=== PATIENT | female | born 1955 | race Caucasian/White ===

== ENCOUNTER 2023-01-16 13:45 | Outpatient (REF) | payer MEDICARE, OTHER, SELFPAY ==
[2023-01-19 12:09] LABS: Age Gdln ACOG Testing Note (.); Pap IG (Image Guided) Note (.)
== END 2023-01-16 13:46 | disposition home or self-care (01) ==
LOC: LAB 13:45
PROVIDERS: Visit Provider Obstetrics & Gynecology
DX: Z01.419 Encounter for gynecological examination (general) (routine) without abnormal findings (principal)
CPT/HCPCS: 88175

== ENCOUNTER 2023-01-27 12:53 | Outpatient (OUT) | payer MEDICARE, OTHER, SELFPAY ==
--- NOTE | 2023-01-27 | MM_ITS ---
Patient: MELODIE WALLACE Exam Date: 01/27/2023 : 1955 Gender:F Ordering : DR Gerson Trinidad . Admission #: [id number] Family : DR SWENSON KAYLEEN . Order #: [id number] CLICK HERE TO VIEW EXAM RADIOLOGY REPORT PROCEDURE: MM TOMOSYNTHESIS SCREENING BI COMPARISON: MG MAMM SCREEN 3D CARISSA CAD, 11/30/2020. MG MAMM SCREEN 3D CARISSA CAD, 01/17/2022. INDICATIONS: well adult Z00.00 Calculator Name NCI Breast Cancer Risk Assessment Tool 5 Year Breast Cancer Risk 1.50% Lifetime Breast Cancer Risk 4.80% Personal Breast Cancer No Personal Ovarian Cancer No Treatments HYSTERECTOMY Family Cancers Grandfather-paternal with colon cancer at age 56. LOCATION: [facility] BREAST COMPOSITION: Almost entirely fatty. FINDINGS: DIAGNOSTIC CATEGORY 1--NEGATIVE. NO CHANGE FROM COMPARISON ASSESSMENT. Scattered benign-appearing calcifications are present. Scattered benign-appearing lymph nodes are present. RIGHT BREAST: No significant suspicious finding. LEFT BREAST: No significant suspicious finding. RECOMMENDATIONS: ROUTINE MAMMOGRAM AND CLINICAL EVALUATION IN 12 MONTHS. PLEASE NOTE: A NORMAL MAMMOGRAM DOES NOT EXCLUDE THE POSSIBILITY OF BREAST CANCER. A CLINICALLY SUSPICIOUS PALPABLE LUMP SHOULD BE BIOPSIED. Dictated by: Wilder Kerr MD on 01/27/2023 at 13:51 Approved by: Wilder Kerr MD on 01/27/2023 at 13:55
== END 2023-01-27 12:54 | disposition home or self-care (01) ==
LOC: MAMMO 12:53
PROVIDERS: PCP Family Medicine; Visit Provider Family Medicine
DX: Z12.31 Encounter for screening mammogram for malignant neoplasm of breast (principal); Z00.00 Encounter for general adult medical examination without abnormal findings; Z90.710 Acquired absence of both cervix and uterus; Z80.0 Family history of malignant neoplasm of digestive organs
CPT/HCPCS: 77063; 77067

== ENCOUNTER 2023-07-04 09:57 | Outpatient (OUT) | payer MEDICARE, OTHER, SELFPAY ==
[2023-07-04 10:41] LABS: Alanine Aminotransferase 41 U/L (14-59); Albumin Globulin Ratio 1.3; Albumin Level 4.2 g/dL (3.4-5.0); Alkaline Phosphatase 45 U/L (46-116); Aspartate Amino Transferase 24 U/L (15-37); Bilirubin Direct 0.1 mg/dL (0.0-0.2); Bilirubin Total 0.6 mg/dL (0.2-1.0); Chol HDL Ratio 2.9; Cholesterol 193 mg/dL (<=200); Globulin 3.3 g/dL; HDL Cholesterol 67 mg/dL (40-60); Total Protein 7.5 g/dL (6.4-8.2); Triglycerides 125 mg/dL (<=150)
== END 2023-07-04 09:58 | disposition home or self-care (01) ==
LOC: LAB 09:57
PROVIDERS: PCP Family Medicine; Visit Provider Family Medicine
DX: E78.00 Pure hypercholesterolemia, unspecified (principal)
CPT/HCPCS: 36415; 80061; 80076

== ENCOUNTER 2023-11-15 10:06 | Outpatient (OUT) | payer MEDICARE, OTHER, SELFPAY ==
[2023-11-15 10:36] LABS: Basophils Absolute Auto 0.1 10^3/uL (0.0-0.1); Basophils Percent Auto 0.7 % (0.2-2.0); Eosinophils Absolute Auto 0.2 10^3/uL (0.0-0.7); Eosinophils Percent Auto 2.5 % (0.9-7.0); Hematocrit 40.6 % (36.0-48.0); Hemoglobin 13.1 g/dL (12.0-16.0); Immature Granulocytes Abs Auto 0.05 10^3/uL (0.00-0.03); Immature Granulocytes Pct Auto 0.6 % (0.0-0.5); Lymphocytes Absolute Auto 2.7 10^3/uL (1.2-3.8); Lymphocytes Percent Auto 31.7 % (20.5-60.0); Mean Corpuscular HGB Conc 32.3 g/dL (29.9-35.2); Mean Corpuscular Hemoglobin 29.2 pg (26.7-34.0); Mean Corpuscular Volume 90.4 fL (81.0-99.0); Mean Platelet Volume 10.5 fL (9.5-13.5); Monocytes Absolute Auto 0.5 10^3/uL (0.3-0.8); Monocytes Percent Auto 6.2 % (1.7-12.0); Neutrophils Percent Auto 58.3 % (43.0-75.0); Platelet Count 240 10^3/uL (150-450); Red Blood Count 4.49 10^6/uL (4.20-5.40); White Blood Count 8.5 10^3/uL (4.0-11.0)
[2023-11-15 11:15] LABS: Estimated Average Glucose 137 mg/dL; Glycohemoglobin A1C 6.4 % (4.5-6.2)
[2023-11-15 11:56] LABS: Alanine Aminotransferase 36 U/L (14-59); Albumin Globulin Ratio 1.2; Albumin Level 4.1 g/dL (3.4-5.0); Alkaline Phosphatase 51 U/L (46-116); Anion Gap 15.9; Aspartate Amino Transferase 23 U/L (15-37); BUN Creatinine Ratio 28.6; Bilirubin Total 0.6 mg/dL (0.2-1.0); Carbon Dioxide 26.1 mmol/L (21.0-32.0); Chloride 103 mmol/L (98-107); Chol HDL Ratio 3.8; Cholesterol 226 mg/dL (<=200); Estimated GFR (African America >60 (>=60); Estimated GFR (Non-African Ame >60 (>=60); Free T3 2.03 pg/mL (2.18-3.98); Globulin 3.5 g/dL; Glucose 129 mg/dL (74-106); HDL Cholesterol 60 mg/dL (40-60); Sodium 140 mmol/L (136-145); Thyroid Stimulating Hormone 1.916 uIU/mL (0.358-3.740); Total Protein 7.6 g/dL (6.4-8.2); Triglycerides 245 mg/dL (<=150)
== END 2023-11-15 10:07 | disposition home or self-care (01) ==
LOC: LAB 10:10
PROVIDERS: PCP Family Medicine; Visit Provider Family Medicine
DX: E78.5 Hyperlipidemia, unspecified (principal); R73.09 Other abnormal glucose; D64.9 Anemia, unspecified; E55.9 Vitamin D deficiency, unspecified; I10 Essential (primary) hypertension
CPT/HCPCS: 36415; 80053; 80061; 82306; 83036; 83540; 84436; 84443; 84481; 85025

== ENCOUNTER 2024-01-29 20:08 | Outpatient (REF) | payer MEDICARE, OTHER, SELFPAY ==
--- OUTSIDE RECORDS SUMMARY | 2024-01-29 20:12 | XMS_ITS | CCD ---
Author Organization [facility] Care Team Providers Care Hydrography Teacher Name Role Phone Kory JARRETT Attending Unavailable Gerardoy PROVIDERZhao Referring Unavailabl e HOY ., DR CHURCHILL Primary Care Unavailable HOY ., DR CHURCHILL Admitting Unavailable HOY ., DR CHURCHILL Attending Unavailable HOY ., DR CHURCHILL Primary Care Unavailable HOY ., DR CHURCHILL Admitting Unavailable HOY ., DR CHURCHILL Attending Unavailable HOY ., DR CHURCHILL Consulting Unavailable ZIEBER, DR CARLOS Clinton Consulting Unavailable KAYLEEN ., DR SWENSON Admitting Unavailable HOY ., DR CHURCHILL Primary Care Unavailable KAYLEEN ., DR SWENSON Consulting Unavailable KAYLEEN ., DR SWENSON Attending Unavailable KAYLEEN ., DR SWENSON Attending Unavailable HOY ., DR CHURCHILL Primary Care Unavailable KAYLEEN ., DR SWENSON Consulting Unavailable KAYLEEN ., DR SWENSON Admitting Unavailable ZIEBER, DR CARLOS Clinton Consulting Unavailable KAYLEEN ., DR SWENSON Attending Unavailable KAYLEEN ., DR SWENSON Consulting Unavailable KAYLEEN ., DR SWENSON Admitting Unavailable HOY ., DR CHURCHILL Primary Care Unavailable HOY ., DR CHURCHILL Primary Care Unavailable HOY ., DR CHURCHILL Admitting Unavailable HOY ., DR CHURCHILL Attending Unavailable HOY ., DR CHURCHILL Consulting Unavailable HOY ., DR CHURCHILL Primary Care Unavailable HOY ., DR CHURCHILL Admranjan Unavailable HOY ., DR CHURCHILL Attending Unavailable HOY ., DR CHURCHILL Consulting Unavailable ZIEBER, DR CARLOS Clinton Consulting Unavailable Zhao Trinidad MD Primary Care Provider [phone] Zhao Trinidad MD Primary Care Provider [phone] ZHAO TRINIDAD Primary Care Unavailable NICKI V, IDANIA Attending Unavailable NICKI V, IDANIA Referring Unavailable NICKI V, IDANIA Admitting Unavailable NICKI V, IDANIA Attending Unavailable SELF Referring Unavailable ZHAO TRINIDAD Primary Care Unavailable ZHAO TRINIDAD Primary Care Unavailable NICKI V, IDANIA Referring Unavailable ZHAO TRINIDAD Primary Care Unavailable NICKI V, IDANIA Referring Unavailable ZHAO TRINIDAD M Primary Care Unavailable NICKI V, IDANIA Referring Unavailable ZHAO TRINIDAD Primary Care Unavailable NICKI V, IDANIA Attending Unavailable NICKI V, IDANIA Referring Unavailable NICKI V, IDANIA Admitting Unavailable Allergies Allergy Classification Reported Allergen(s) Allergy Type Date of Onset Reaction(s) Facility (1 source) No Known Medication Allergies; Translations: [No Known Medication Allergies] Propensity to adverse reactions (disorder) [facility] Repository Medications Current Medications Medication Drug Class(es) Dates Sig (Normalized) Sig (Original) alendronic acid 70 mg oral tablet (3 sources) Bisphosphonate Start: 08-18-2023 take 1 tablet by mouth every week alendronate (FOSAMAX) 70 mg tablet Take 1 tablet by mouth one time a week. 0 08/18/2023 Active Comment on above: Take 1 tablet by luke th one time a week. 24 hr desvenlafaxine succinate 25 mg extended release oral tablet (3 sources) Serotonin and Norepinephrine Reuptake Inhibitor Start: 08-24-2023 take 1 tablet by mouth once desvenlafaxine ER (PRISTIQ) 25 mg 24 hr tablet Take 1 tablet by mouth every afternoon. 0 08/24/2023 Active Comment on above: Take 1 tablet by luke th every afternoon. diclofenac sodium 75 mg delayed release oral tablet (3 sources) Nonsteroidal Anti-inflammatory Drug Start: 09-19-2023 take 1 tablet by mouth every twelve hours diclofenac, EC, (VOLTAREN) 75 mg EC tablet Take 1 tablet by mouth every 12 hours. 0 09/19/2023 Active Comment on above: Take 1 tablet by luke th every 12 hours. estradiol 0.1 mg/ml vaginal cream (3 sources) Estrogen estradiol (ESTRA CE) 0.01 % (0.1 mg/gram) vaginal cream Use 2 g vaginally. 0 Active Comment on above: Use 2 g vaginally. ezetimibe 10 mg oral tablet (3 sources) Dietary Cholesterol Absorption Inhibitor Start: 08-24-2023 take 1 tablet by mouth once ezetimibe (ZETIA) 10 mg tablet Take 1 tablet by mouth every afternoon. 0 08/24/2023 Active Comment on above: Take 1 tablet by luke th every afternoon. irbesartan 150 mg oral tablet (3 sources) Angiotensin 2 Receptor Dillan Start: 2023 irbesartan (AVAPRO) 150 mg tablet montelukast 10 mg oral tablet (3 sources) Leukotriene Receptor Antagonist Start: 07-13-2023 take 1 tablet by mouth once montelukast (SINGULAIR) 10 mg tablet Take 1 tablet by mouth every afternoon. 0 07/13/2023 Active Comment on above: Take 1 tablet by luke th every afternoon. pantoprazole 40 mg delayed release oral tablet (3 sources) Proton Pump Inhibitor Start: 07-12-2023 take 1 tablet by mouth once pantoprazole DR (PROTONIX) 40 mg tablet Take 1 tablet by mouth every afternoon. 0 07/12/2023 Active Comment on above: Take 1 tablet by luke th every afternoon. simvastatin 20 mg oral tablet (3 sources) HMG-CoA Reductase Inhibitor Start: 08-24-2023 take 1 tablet by mouth once simvastatin (ZOCOR) 20 mg tablet Take 1 tablet by mouth every afternoon. 0 08/24/2023 Active Comment on above: Take 1 tablet by luke th every afternoon. vitamin b12 0.1 mg oral tablet (3 sources) Vitamin B12 cyanocobalamin (VITAMIN B-12) 100 mcg tab Vitamin B12 0 Active Comment on above: Vitamin B12 Problems Active Problems Problem Classification Problem Date Documented Da te Episodic/Chronic Cataract (3 sources) Bilateral senile combined form cataracts of eyes; Translations: [Combined forms of age-related cataract, bilateral] Onset: 12-20-2023 09-07-2023 Chronic Deficiency and other anemia (1 source) Anemia, unspecified; Translations: [ANEMIA UNSPECIFIED] Onset: 10-22-2022 Episodic Diabetes mellitus without complication (1 source) Other abnormal glucose; Translations: [OTHER ABNORMAL GLUCOSE] Onset: 10-22-2022 Episodic Disorders of lipid metabolism (4 sources) Hyperlipidemia, unspecified; Translations: [Hyperlipidemia] Onset: 10-22-2022 12-07-2023 Chronic Esophageal disorders (4 sources) Gastro-esophageal reflux disease without esophagitis; Translations: [Gastroesophageal reflux disease without esophagitis] Onset: 10-22-2022 12-07-2023 Chronic Essential hypertension (3 sources) Essential hypertension; Translations: [Essential (primary) hypertension] Onset: 12-07-2023 12-07-2023 Chronic Nutritional deficiencies (1 source) Vitamin D deficiency, unspecified; Translations: [VITAMIN D DEFICIENCY UNSPECIFIED] Onset: 10-22-2022 Chronic Other and ill-defined heart disease (1 source) Other ill-defined heart diseases; Translations: [OTHER ILL-DEFINED HEART DISEASES] Onset: 07-27-2022 Chronic Other lower respiratory disease (4 sources) Dyspnea, unspecified; Translations: [DYSPNEA UNSPECIFIED] Onset: 10-18-2022 Episodic Other screening for suspected conditions (not mental disorders or infectious disease) (13 sources) Encounter for screening for malignant neoplasm of rectum; Translations: [Unsatisfactory cytologic smear of vagina] Onset: 01-03-2022 Episodic Residual codes; unclassified (1 source) Insomnia, unspecified; Translations: [INSOMNIA UNSPECIFIED] Onset: 10-22-2022 Episodic Retinal detachments; defects; vascular occlusion; and retinopathy (1 source) Drusen of left macula; Translations: [Drusen (degenerative) of macula, left eye] 09-28-2023 Chronic Unclassified (3 sources) COUGH, UNSPECIFIED; Translations: [COUGH, UNSPECIFIED] Onset: 02-16-2022 Past or Other Problems Problem Classification Problem Date Documented Da te Episodic/Chronic Immunizations and screening for infectious disease (1 source) Encounter for screening for human papillomavirus (HPV); Translations: [ENC SCREENING HUMAN PAPILLOMAVIRUS] Onset: 01-06-2022 Episodic Nonspecific chest pain (4 sources) Chest pain, unspecified; Translations: [CHEST PAIN UNSPECIFIED] Onset: 07-20-2022 Episodic Other bone disease and musculoskeletal deformities (1 source) Other specified disorders of bone density and structure, unspecified site; Translations: [OTH D/O BONE DEN STRUCT UNS SITE] Onset: 01-19-2022 Episodic Residual codes; unclassified (1 source) Asymptomatic menopausal state; Translations: [ASYMPTOMATIC MENOPAUSAL STATE] Onset: 01-19-2022 Episodic Residual codes; unclassified (1 source) Family history of malignant neoplasm of digestive organs; Translations: [FAM HX MALIG NEOPLASM DIGESTIV ORGN] Onset: 01-19-2022 Episodic Unclassified (1 source) COUGH, UNSPECIFIED; Translations: [COUGH, UNSPECIFIED] Onset: 02-14-2022 Results Test Name Value Interpretation Reference Range Facility ANES POSTPROC EVALon 024 ANES POSTPROC EVAL HNO ID: [id number] Author: LARRY BANERJEE MD Service: Anesthesiology Author Type: Anesthesiologist Type: Anesthesia Postprocedure Evaluation Filed: 01/03/2024 12:50 Note Text: POST ANESTHESIA EVALUATION NOTE : 1955 Procedure Summary Date: 01/03/24 Room / Location: [address] Anesthesia Start: 1216 Anesthesia Stop: 1238 Procedures: PHACOEMULSIFICATION CATARACT IMPLANT INTRAOCULAR LENS W/O ENDOSCOPIC CYCLOPHOTOCOAGULATION (Right: Eye) OPHTHALMIC BIOMETRY BY PARTIAL COHERENCE INTERFEROMETRY W/INTRAOCULAR LENS POWER CALCULATION (Right: Eye) Diagnosis: Combined forms of age-related cataract of both eyes (Combined forms of age-related cataract of both eyes [H25.813]) Surgeons: Idania Moreno V, MD Responsible Provider: Larry Banerjee MD Anesthesia Type: MAC ASA Status: 3 Anesthesia Type: MAC Last Vitals Vitals Value Taken Time BP 135/61 01/03/24 1242 Temp 36.7 ?C (98.1 ?F) 01/03/24 1237 Pulse 74 01/03/24 1237 Resp 16 01/03/24 1242 SpO2 96 % 01/03/24 1242 Post Anesthesia Patient Status Patient Evaluation: PACU. PACU/ICU Patient Condition: stable. Anticipated Disposition: phase 2 then home. Neurological Status: aware and responsive. Pulmonary Status: breathing comfortably on room air Airway Control: returned to baseline unsupported. Cardiovascular Status: stable. Pain Management: clinically adequate Postoperative Hydration: acceptable. Intraoperative Events: no significant anesthesia events Recommendation: continue current plan of care. Anesthesia Observations No Documentation SIGNATURE: Larry Banerjee MD PATIENT NAME: Anamaria Carey DATE: January 03, 2024 TIME: 12:50 PM CSN: [id number] Normal [facility] ANES PRE-OPon 01-03-2024 ANES PRE-OP HNO ID: [id number] Author: LARRY BANERJEE MD Service: Anesthesiology Author Type: Anesthesiologist Type: Anesthesia Preprocedure Evaluation Filed: 01/03/2024 12:14 Note Text: ANESTHESIOLOGY DAY OF SURGERY NOTE : 1955 Procedure Information Date/Time: 01/03/24 1145 Procedures: PHACOEMULSIFICATION CATARACT IMPLANT INTRAOCULAR LENS W/O ENDOSCOPIC CYCLOPHOTOCOAGULATION (Right: Eye) OPHTHALMIC BIOMETRY BY PARTIAL COHERENCE INTERFEROMETRY W/INTRAOCULAR LENS POWER CALCULATION (Right: Eye) Location: [address] Surgeons: Idania Moreno V, MD Estimated body mass index is 26.76 kg/m? as calculated from the following: Height as of 12/07/23: 170.2 cm (5' 7 ). Weight as of 12/07/23: 77.5 kg (170 lb 13.7 oz). Most recent hematocrit and potassium results: No results found for this basename: HCT,HEMATOCRIT,K,POTASS IUM Relevant Problems CARDIO (+) Primary hypertension GI (+) Gastro-esophageal reflux disease without esophagitis I - PHYSICAL EVALUATION AIRWAY Patient intubated: No. Tracheostomy tube not present Mallampati: II. TM distance: >3 FB. Neck ROM: full ROM without neurological symptoms. Mouth opening: adequate. Short neck: no. Thick neck: no DENTAL Normal dental observations. Dental findings: teeth intact. Additional exam findings: yes. CARDIOVASCULAR Normal cardiovascular observations. Rhythm: regular Rate: normal PULMONARY Normal pulmonary observations. Breath sounds clear to auscultation. II - ANESTHESIA PLAN ASA Score: 3 Anesthetic Plan: MAC The patient is not a current smoker. NPO Status: adequate Beta Dillan Monitoring Plan Monitoring plan: standard ASA. Post Procedure Analgesic Plan Postoperative analgesic plan: multimodal analgesia. Informed Consent Anesthetic risks, benefits, alternatives, personnel and consent discussed: yes. Patient / Responsible Democrat agrees to proceed: yes Patient / Surrogate agrees to blood products: yes Significant changes in the patient condition since the History and Physical, not otherwise documented in primary service progress note: no. Potential Anesthesia issues that may suggest increased risk of complications or contraindication to planned procedure: none. Vitals Value Taken Time BP 137/66 01/03/24 1156 Pulse 71 01/03/24 1156 Resp 18 01/03/24 1156 Temp 36.3 ?C (97.3 ?F) 01/03/24 1156 SpO2 98 % 01/03/24 1156 Facility-Administered Medications as of 01/03/2024 Medication Dose Route Frequency NaCl 0.9% iv infusion 30 mL/hr INTRAVENOUS CONTINUOUS [COMPLETED] lidocaine HCl (PF) 40 mg/mL 2 mg injection (XYLOCAINE) 0.05 mL RIGHT EYE EVERY 5 MINUTES X 3 DOSES [COMPLETED] PHENYLephrine 2.5 % 1 Drop (AK-DILATE, PAT-SYNEPHRINE) 1 Drop RIGHT EYE EVERY 5 MINUTES X 3 DOSES [COMPLETED] tropicamide 1 % 1 Drop (MYDRIACYL) 1 Drop RIGHT EYE EVERY 5 MINUTES X 3 DOSES cyclopentolate 1 % 1 Drop (CYCLOGYL) 1 Drop RIGHT EYE Pre-Op PRN [COMPLETED] keTORolac 0.5 % 1 Drop (ACULAR) 1 Drop RIGHT EYE q 5 MIN [COMPLETED] Povidone-Iodine 5 % 30 mL ophth soln (BETADINE) 30 mL RIGHT EYE ONCE [COMPLETED] balanced salts 15 mL (BSS) 15 mL RIGHT EYE ONCE [COMPLETED] lidocaine HCl (PF) 40 mg/mL 2 mg injection (XYLOCAINE) 0.05 mL LEFT EYE EVERY 5 MINUTES X 3 DOSES [COMPLETED] PHENYLephrine 2.5 % 1 Drop (AK-DILATE, PAT-SYNEPHRINE) 1 Drop LEFT EYE EVERY 5 MINUTES X 3 DOSES [COMPLETED] tropicamide 1 % 1 Drop (MYDRIACYL) 1 Drop LEFT EYE EVERY 5 MINUTES X 3 DOSES [COMPLETED] keTORolac 0.5 % 1 Drop (ACULAR) 1 Drop LEFT EYE q 5 MIN [COMPLETED] Povidone-Iodine 5 % 30 mL ophth soln (BETADINE) 30 mL LEFT EYE ONCE [COMPLETED] balanced salts 15 mL (BSS) 15 mL LEFT EYE ONCE Outpatient Medications as of 01/03/2024 Medication Sig prednisoLONE acetate (PRED FORTE) 1 % ophthalmic suspension USE DIRECTED BY PHYSICIAN, IN OPERATIVE EYE, BEGINNING ONE DAY AFTER SURGERY keTORolac (ACULAR) 0.5 % ophthalmic solution USE DIRECTED BY PHYSICIAN, IN OPERATIVE EYE, BEGINNING ONE DAY AFTER SURGERY prednisoLONE acetate (PRED FORTE) 1 % ophthalmic suspension USE DIRECTED BY PHYSICIAN, IN OPERATIVE EYE, BEGINNING ONE DAY AFTER SURGERY keTORolac (ACULAR) 0.5 % ophthalmic solution USE DIRECTED BY PHYSICIAN, IN OPERATIVE EYE, BEGINNING ONE DAY AFTER SURGERY alendronate (FOSAMAX) 70 mg tablet Take 1 tablet by mouth one time a week. SMRxT ULTRA TEST test strip USE TO TEST BLOOD SUGAR DAILY DX: E11.9 desvenlafaxine ER (PRISTIQ) 25 mg 24 hr tablet Take 1 tablet by mouth every afternoon. diclofenac, EC, (VOLTAREN) 75 mg EC tablet Take 1 tablet by mouth every 12 hours. ezetimibe (ZETIA) 10 mg tablet Take 1 tablet by mouth every afternoon. irbesartan (AVAPRO) 150 mg tablet montelukast (SINGULAIR) 10 mg tablet Take 1 tablet by mouth every afternoon. pantoprazole DR (PROTONIX) 40 mg tablet Take 1 tablet by mouth every afternoon. simvastatin (ZOCOR) 20 mg tablet Take 1 tablet by mouth every afternoon. I h (more content not included)... Normal [facility] OPERATIVE NOon 01-03-2024 OPERATIVE NO HNO ID: [id number] Author: IDANIA MORENO MD Service: Ophthalmology Author Type: Physician Type: Operative Report Filed: 01/03/2024 12:34 Note Text: OPERATIVE REPORT DATE OF SERVICE: January 03, 2024 PRIMARY SURGEON: Idania Moreno M.D. MAMMAL KEEPER: None [Any nurse listed as assisting or otherwise participating in this patient's care in the operating room has solely performed the duties of a circulating nurse.] Procedure(s) (LRB): PHACOEMULSIFICATION CATARACT IMPLANT INTRAOCULAR LENS W/O ENDOSCOPIC CYCLOPHOTOCOAGULATION (Right) OPHTHALMIC BIOMETRY BY PARTIAL COHERENCE INTERFEROMETRY W/INTRAOCULAR LENS POWER CALCULATION (Right) ANESTHESIA: Topical with monitored anesthesia care. PREOPERATIVE DIAGNOSIS: Combined cataract POSTOPERATIVE DIAGNOSIS: Combined cataract, presbyopia OPERATIVE INDICATIONS: BAT 20/150 OPERATIVE PROCEDURE: The patient was admitted to the operating suite where an IV and BP, EKG, and O2 monitors were placed. The operative eye was pretreated with 2.5% tropicamide and 1% phenylephrine eye drops. The operative eye was confirmed and marked. The intended Intraocular lens model and power circled on the patient's source document was confirmed to match the intraocular lens model and power selected from the Intraocular lens consignment, in accordance with hospital intraocular lens verification policy. Nasal oxygen was administered. With the patient in the supine position, topical lidocaine 4% was placed in the eye. The patient was then prepped and draped in the usual sterile fashion for intraocular surgery. After a time-out confirming correct patient using two unique identifiers, correct eye, correct operation, presence of allergies, correct implant, and implant sterility date, an eyelid speculum was placed. Under the operating microscope a beveled clear corneal incision was created temporally with a [place] blade then a 2.4 mm keratome. The anterior chamber was reformed with Viscoat, after which the anterior capsule was opened centrally. Using the Utrata forceps a continuous curvilinear capsulorrhexis of approximately 5.5 mm round was created. Gentle hydrodissection was accomplished using preservative-free lidocaine on a 27-gauge cannula. Using the Jordan phacoemulsification unit with the Opsens curved tip, the anterior chamber was entered and the nucleus was removed while it was in the bag. The epinuclear ring was dissected into several segments, then removed using the phacoemulsification unit set to the desired aspiration flow rate and ultrasound parameters. It was necessary to use chopper forceps at various intervals to aid in the fragmentation of the dense lens material. Great care was taken not to violate the posterior capsule. The silicone-tipped I and A instrument was used to remove the cortex and buff off any remaining cataractous material from the posterior capsule. The capsular bag was then reformed with Discovisc and the following Intraocular lens implant Implant Name Type Inv. Item Serial No. Student Accounts Coordinator Lot No. LRB No. Used Action Model No. [id number] [employer] - [id number] Intraocular Lens [id number] [employer] [id number] [employer] Right 1 Implanted [id number] was inserted through the lips of the wound into the capsular bag. I have reviewed the images and report from the Ophthalmic Biometry January 03, 2024 to determine the Intraocular lens Power Calculation for the IOL lens implant. I have interpreted and agree with the calculation of the IOL as listed above. Using the I and A instrument, the Discovisc was removed from the anterior chamber and capsular bag, and the implant was centered. Cefuroxime 1mg in 0.1 mL normal saline was introduced into the anterior chamber through the clear corneal incision using a 30 gauge cannula. The wound was checked and found to be watertight. At the end of the procedure, the cornea was clear, the anterior chamber was deep and clear, the pupil was round, the implant was centered within the capsular bag, and the posterior capsule was intact. The eyelid speculum was removed and prednisolone acetate 1% and timolol 0.5% eye drops were administered. A shield was affixed over the eye and the patient was sent to the recovery room, leaving the operating room in excellent condition. ESTIMATED BLOOD LOSS: <1mL SPECIMEN: None FINDINGS: Age-related cataract COMPLICATIONS: None Incision/Procedure Start Time: 12:27 PM Incision Close/Procedure End Time: 12:33 PM - [facility] Dr Cody[facility] Idania MORENO MD [facility] ANES POSTPROC EVALon 024 ANES POSTPROC EVAL HNO ID: [id number] Author: SADIQ MEGLAR II, DO Service: Anesthesiology Author Type: Anesthesiologist Type: Anesthesia Postprocedure Evaluation Filed: 12/20/2023 13:11 Note Text: POST ANESTHESIA EVALUATION NOTE : 1955 Procedure Summary Date: 12/20/23 Room / Location: [address] Anesthesia Start: 1116 Anesthesia Stop: 1135 Procedures: PHACOEMULSIFICATION CATARACT IMPLANT INTRAOCULAR LENS W/O ENDOSCOPIC CYCLOPHOTOCOAGULATION (Left: Eye) OPHTHALMIC BIOMETRY BY PARTIAL COHERENCE INTERFEROMETRY W/INTRAOCULAR LENS POWER CALCULATION (Left: Eye) Diagnosis: Combined forms of age-related cataract of both eyes (Combined forms of age-related cataract of both eyes [H25.813]) Surgeons: Idania Moreno V, MD Responsible Provider: Sadiq Melgar II, DO Anesthesia Type: MAC ASA Status: 2 Anesthesia Type: MAC Last Vitals Vitals Value Taken Time BP 126/58 12/20/23 1148 Temp 36.3 ?C (97.4 ?F) 12/20/23 1137 HR SpO2 71 12/20/23 1148 Resp 16 12/20/23 1148 SpO2 98 % 12/20/23 1148 Post Anesthesia Patient Status Patient Evaluation: PACU. PACU/ICU Patient Condition: stable. Neurological Status: aware and responsive. Pulmonary Status: breathing comfortably on room air Airway Control: returned to baseline unsupported. Cardiovascular Status: stable. Pain Management: clinically adequate Postoperative Hydration: acceptable. Intraoperative Events: no significant anesthesia events Post Operative Nausea/Vomiting Status: no significant post operative nausea or vomiting Recommendation: continue current plan of care. Anesthesia Observations No Documentation SIGNATURE: Sadiq Melgar II, DO PATIENT NAME: Anamaria Carey DATE: December 20, 2023 TIME: 1:11 PM CSN: [id number] Normal [facility] ANES PRE-OPon 12-20-2023 ANES PRE-OP HNO ID: [id number] Author: SADIQ MELGAR II, DO Service: Anesthesiology Author Type: Anesthesiologist Type: Anesthesia Preprocedure Evaluation Filed: 12/20/2023 10:31 Note Text: ANESTHESIOLOGY DAY OF SURGERY NOTE : 1955 Procedure Information Date/Time: 12/20/23 1025 Procedures: PHACOEMULSIFICATION CATARACT IMPLANT INTRAOCULAR LENS W/O ENDOSCOPIC CYCLOPHOTOCOAGULATION (Left: Eye) OPHTHALMIC BIOMETRY BY PARTIAL COHERENCE INTERFEROMETRY W/INTRAOCULAR LENS POWER CALCULATION (Left: Eye) Location: [address] Surgeons: Idania Moreno V, MD Estimated body mass index is 26.76 kg/m? as calculated from the following: Height as of 12/07/23: 170.2 cm (5' 7 ). Weight as of 12/07/23: 77.5 kg (170 lb 13.7 oz). Most recent hematocrit and potassium results: No results found for this basename: HCT,HEMATOCRIT,K,POTASS IUM Relevant Problems CARDIO (+) Primary hypertension GI (+) Gastro-esophageal reflux disease without esophagitis I - PHYSICAL EVALUATION AIRWAY Patient intubated: No. Tracheostomy tube not present Mallampati: III. TM distance: >3 FB. Neck ROM: limited extension. Mouth opening: adequate. Short neck: no. Thick neck: no DENTAL Additional comments: crowns. Additional exam findings: yes. CARDIOVASCULAR Rhythm: regular Rate: normal PULMONARY Breath sounds clear to auscultation. II - ANESTHESIA PLAN ASA Score: 2 Anesthetic Plan: MAC The patient is not a current smoker. NPO Status: adequate Beta Dillan Monitoring Plan Monitoring plan: standard ASA. Post Procedure Analgesic Plan Postoperative analgesic plan: parenteral or oral opioids. Informed Consent Anesthetic risks, benefits, alternatives, personnel and consent discussed: yes. Patient / Responsible Democrat agrees to proceed: yes Patient / Surrogate agrees to blood products: Yes Vitals Value Taken Time BP 141/90 12/20/23 1019 Pulse 84 12/20/23 1019 Resp 16 12/20/23 1019 Temp 36.4 ?C (97.5 ?F) 12/20/23 1019 SpO2 97 % 12/20/23 1019 Facility-Administered Medications as of 12/20/2023 Medication Dose Route Frequency - NaCl 0.9% iv infusion 30 mL/hr INTRAVENOUS CONTINUOUS - [COMPLETED] lidocaine HCl (PF) 40 mg/mL 2 mg injection (XYLOCAINE) 0.05 mL LEFT EYE EVERY 5 MINUTES X 3 DOSES - [COMPLETED] PHENYLephrine 2.5 % 1 Drop (AK-DILATE, PAT-SYNEPHRINE) 1 Drop LEFT EYE EVERY 5 MINUTES X 3 DOSES - [COMPLETED] tropicamide 1 % 1 Drop (MYDRIACYL) 1 Drop LEFT EYE EVERY 5 MINUTES X 3 DOSES - cyclopentolate 1 % 1 Drop (CYCLOGYL) 1 Drop LEFT EYE Pre-Op PRN - [COMPLETED] keTORolac 0.5 % 1 Drop (ACULAR) 1 Drop LEFT EYE q 5 MIN - [COMPLETED] Povidone-Iodine 5 % 30 mL ophth soln (BETADINE) 30 mL LEFT EYE ONCE - [COMPLETED] balanced salts 15 mL (BSS) 15 mL LEFT EYE ONCE Outpatient Medications as of 12/20/2023 Medication Sig - [employer] Spine[employer]CH ULTRA TEST test strip USE TO TEST BLOOD SUGAR DAILY DX: E11.9 - desvenlafaxine ER (PRISTIQ) 25 mg 24 hr tablet Take 1 tablet by mouth every afternoon. - diclofenac, EC, (VOLTAREN) 75 mg EC tablet Take 1 tablet by mouth every 12 hours. - ezetimibe (ZETIA) 10 mg tablet Take 1 tablet by mouth every afternoon. - irbesartan (AVAPRO) 150 mg tablet - montelukast (SINGULAIR) 10 mg tablet Take 1 tablet by mouth every afternoon. - pantoprazole DR (PROTONIX) 40 mg tablet Take 1 tablet by mouth every afternoon. - simvastatin (ZOCOR) 20 mg tablet Take 1 tablet by mouth every afternoon. - prednisoLONE acetate (PRED FORTE) 1 % ophthalmic suspension USE DIRECTED BY PHYSICIAN, IN OPERATIVE EYE, BEGINNING ONE DAY AFTER SURGERY - keTORolac (ACULAR) 0.5 % ophthalmic solution USE DIRECTED BY PHYSICIAN, IN OPERATIVE EYE, BEGINNING ONE DAY AFTER SURGERY - alendronate (FOSAMAX) 70 mg tablet Take 1 tablet by mouth one time a week. I have interviewed and examined the patient. I have reviewed the medical record and/or the pre-anesthesia evaluation, pertinent labs, and test results. This contains updated information obtained within 48 hours of Surgery/Procedure. SIGNATURE: Sadiq Melgar II, DO PATIENT NAME: Anamaria Carey DATE: December 20, 2023 TIME: 10:28 AM CSN: [id number] [facility] NURSING PROGon 12-20-2023 NURSING PROG HNO ID: [id number] Author: ARIN VELASCO RN Service: ? Author Type: Registered Nurse Type: Nursing Progress Note Filed: 12/20/2023 11:43 Note Text: POST OP LEARNING RESPONSE INSTRUCTION PROVIDED TO: Patient and Spouse METHOD OF INSTRUCTION: Written instruction/Handouts Verbal instruction PATIENT / FAMILY RESPONSE: Verbalizes understanding of: INFECTION MANAGEMENT-Signs and symptoms of an infection and importance of contacting the physician PAIN MANAGEMENT-Effective strategies to manage pain in addition to pain medication PHYSICAL RESTRICTIONS-Physical restrictions and recommendations after discharge from the hospital POST-OPERATIVE INSTRUCTIONS-Correct actions to take to reduce postoperative complications WORSENING CONDITION-Signs and symptoms of a worsening condition that warrant a call to the physician FOLLOW-UP PLAN: Patient instructed to call with any further issues SUPPLEMENTAL MATERIAL: Discharge instructions REFERRAL (RECOMMENDATION): None Electronically Signed By: Arin Velasco RN In Department: AMBULATORY SURGERY [facility] OPERATIVE NOon 12-20-2023 OPERATIVE NO HNO ID: [id number] Author: IDANIA MORENO MD Service: Ophthalmology Author Type: Physician Type: Operative Report Filed: 12/20/2023 11:34 Note Text: OPERATIVE REPORT DATE OF SERVICE: December 20, 2023 PRIMARY SURGEON: Idania Moreno M.D. MAMMAL KEEPER: None [Any nurse listed as assisting or otherwise participating in this patient's care in the operating room has solely performed the duties of a circulating nurse.] Procedure(s) (LRB): PHACOEMULSIFICATION CATARACT IMPLANT INTRAOCULAR LENS W/O ENDOSCOPIC CYCLOPHOTOCOAGULATION (Left) OPHTHALMIC BIOMETRY BY PARTIAL COHERENCE INTERFEROMETRY W/INTRAOCULAR LENS POWER CALCULATION (Left) ANESTHESIA: Topical with monitored anesthesia care. PREOPERATIVE DIAGNOSIS: Combined cataract POSTOPERATIVE DIAGNOSIS: Combined cataract, presbyopia OPERATIVE INDICATIONS: BAT 20/150 OPERATIVE PROCEDURE: The patient was admitted to the operating suite where an IV and BP, EKG, and O2 monitors were placed. The operative eye was pretreated with 2.5% tropicamide and 1% phenylephrine eye drops. The operative eye was confirmed and marked. The intended Intraocular lens model and power circled on the patient's source document was confirmed to match the intraocular lens model and power selected from the Intraocular lens consignment, in accordance with [facility] intraocular lens verification policy. Nasal oxygen was administered. With the patient in the supine position, topical lidocaine 4% was placed in the eye. The patient was then prepped and draped in the usual sterile fashion for intraocular surgery. After a time-out confirming correct patient using two unique identifiers, correct eye, correct operation, presence of allergies, correct implant, and implant sterility date, an eyelid speculum was placed. Under the operating microscope a beveled clear corneal incision was created temporally with a [place] blade then a 2.4 mm keratome. The anterior chamber was reformed with Viscoat, after which the anterior capsule was opened centrally. Using the Utrata forceps a continuous curvilinear capsulorrhexis of approximately 5.5 mm round was created. Gentle hydrodissection was accomplished using preservative-free lidocaine on a 27-gauge cannula. Using the Jordan phacoemulsification unit with the Kelman curved tip, the anterior chamber was entered and the nucleus was removed while it was in the bag. The epinuclear ring was dissected into several segments, then removed using the phacoemulsification unit set to the desired aspiration flow rate and ultrasound parameters. It was necessary to use chopper forceps at various intervals to aid in the fragmentation of the dense lens material. Great care was taken not to violate the posterior capsule. The silicone-tipped I and A instrument was used to remove the cortex and buff off any remaining cataractous material from the posterior capsule. The capsular bag was then reformed with Discovisc and the following Intraocular lens implant Implant Name Type Inv. Item Serial No. Student Accounts Coordinator Lot No. LRB No. Used Action Model No. [id number] [employer] - [id number] Intraocular Lens [id number] [employer] [id number] [employer] Left 1 Implanted [id number] was inserted through the lips of the wound into the capsular bag. I have reviewed the images and report from the Ophthalmic Biometry December 20, 2023 to determine the Intraocular lens Power Calculation for the IOL lens implant. I have interpreted and agree with the calculation of the IOL as listed above. Using the I and A instrument, the Discovisc was removed from the anterior chamber and capsular bag, and the implant was centered. Cefuroxime 1mg in 0.1 mL normal saline was introduced into the anterior chamber through the clear corneal incision using a 30 gauge cannula. The wound was checked and found to be watertight. At the end of the procedure, the cornea was clear, the anterior chamber was deep and clear, the pupil was round, the implant was centered within the capsular bag, and the posterior capsule was intact. The eyelid speculum was removed and prednisolone acetate 1% and timolol 0.5% eye drops were administered. A shield was affixed over the eye and the patient was sent to the recovery room, leaving the operating room in excellent condition. ESTIMATED BLOOD LOSS: <1mL SPECIMEN: None FINDINGS: Age-related cataract COMPLICATIONS: None Incision/Procedure Start Time: 11:25 AM Incision Close/Procedure End Time: 11:32 AM - Comanage with Dr Cody; [facility] POD #1 Idania MORENO MD [facility] HISTORY PHYSICALon HISTORY PHYSICAL HNO ID: [id number] Author: SAMREEN RICKS APRN.BOTANY TEACHER Service: ? Author Type: Nurse Practitioner Type: H&P Filed: 12/07/2023 11:21 Note Text: HISTORY AND PHYSICAL EXAMINATION SERVICE DATE: 12/07/2023 SERVICE TIME: 10:01 AM PRIMARY CARE PHYSICIAN: Zhao Trinidad MD REASON FOR VISIT: Anamaria Carey is a 68 year old female who is scheduled for bilateral Cataract Surgery at the request of Dr. Idania Moreno V for consultation. My final recommendation will be communicated back to the requesting physician by way of shared medical record or letter. METS: Walk indoors, such as around the house (1.75 METs) Do light work around the house, such as dusting or washing dishes (2.70 METs) Take care of self; that is eating, dressing, bathing, using the toilet (2.75 METs) Climb a flight of stairs or walk up a hill (5.50 METs) Patient denies any chest pain or undue shortness of breath with the above physical activity. ANESTHESIA FINDINGS: Intubation History: No history of difficult intubation Significant Anesthesia Considerations: None Airway Exam: General: Normal appearance Body mass index is 26.76 kg/m?. Mallampati Score is CLASS II ULBT: Class II - Lower incisors can bite the upper lip below the rylee line Neck: Normal appearance and function, Distance from hyoid to mentum during neck extension is at least 3 finger breaths Mouth: Normal tongue size and Mouth opening greater than 2 finger breaths Dentition: Intact and Caps/crowns Airway History: No abnormal airway history 12/06/2023 Sleep Apnea Probability Snores loudly: No Tired, fatigued or sleepy in daytime: No Stops breathing or choking/gasping during sleep: No High blood pressure: Yes Sleep Apnea Probability Score: 8 (Sleep study not recommended) Assessment/Plan Primary hypertension Assessment: Stable and compliant with medications Followed by PCP Last 5 Encounter BP Readings: Date: BP: 12/07/2023 132/68 Hyperlipidemia, unspecified Assessment: Controlled with statin. Monitored per PCP. Gastro-esophageal reflux disease without esophagitis Assessment: Well controlled with PPI PLAN This patient is optimally prepared for surgery. CONSULTS: Patient does not require consults for optimization at this time. The Following Tests/Procedures Have Been Initiated: Labs not indicated per [facility] protocol, EKG not indicated per [facility] protocol Planned Anesthetic: Per anesthesia choice The patient has the following: ACTIVE PROBLEM LIST Gastro-Esophageal Reflux Disease Without Esophagitis Hyperlipidemia, Unspecified Primary Hypertension Subjective CHIEF COMPLAINT: Impaired Vision HPI: Patient is a 68 year old female presenting to pre-anesthesia consultation. Patient complains of decreased visual acuity, blurred vision, and difficulty with night driving for > 6 months. Found to have bilateral cataracts. Patient denies pain. No relieving factors, patient has opted for surgical treatment of cataracts. History reviewed. No pertinent past medical history. PAST SURGICAL HISTORY Procedure Laterality Date COLONOSCOPY SCREENING VAGINAL HYSTERECTOMY FAMILY HISTORY Problem Relation Age of Onset Cataract Mother Macular Degen Brother Glaucoma Brother Detached Retina No Family History Blindness No Family History Amblyopia No Family History Strabismus No Family History Anesthesia Problems No Family History SOCIAL HISTORY: Social History Tobacco Use Smoking status: Former Packs/day: 1.00 Years: 15.00 Additional pack years: 0.00 Total pack years: 15.00 Types: Cigarettes Smokeless tobacco: Never Substance Use Topics Alcohol use: Yes Comment: wine daily Drug use: Never MEDICATIONS: Prior to Admission medications as of 12/07/23 1003 Medication Sig Last Dose Taking alendronate (FOSAMAX) 70 mg tablet Take 1 tablet by mouth one time a week. Taking Yes ONETOUCH ULTRA TEST test strip USE TO TEST BLOOD SUGAR DAILY DX: E11.9 Taking Yes cyanocobalamin (VITAMIN B-12) 100 mcg tab Vitamin B12 Taking Yes desvenlafaxine ER (PRISTIQ) 25 mg 24 hr tablet Take 1 tablet by mouth every afternoon. Taking Yes diclofenac, EC, (VOLTAREN) 75 mg EC tablet Take 1 tablet by mouth every 12 hours. Taking Yes estradiol (ESTRACE) 0.01 % (0.1 mg/gram) vaginal cream Use 2 g vaginally. Taking Yes ezetimibe (ZETIA) 10 mg tablet Take 1 tablet by mouth every afternoon. Taking Yes irbesartan (AVAPRO) 150 mg tablet Taking Yes montelukast (SINGULAIR) 10 mg tablet Take 1 tablet by mouth every afternoon. Taking Yes pantoprazole DR (PROTONIX) 40 mg tablet Take 1 tablet by mouth every afternoon. Taking Yes simvastatin (ZOCOR) 20 mg tablet Take 1 tablet by mouth every afternoon. Taking Yes No medication comments found. CURRENT ALLERGIES: ALLERGIES Not on File Covid Immunization Dates Overdue - Covid-19 Vaccine () Overdue since 11/03/2023 07/04/2023 Imm Admin: COVID-19 vaccine, age (more content not included)... Normal [facility] IOL BIOMETRY W/ IOL CALC OU (BOTH EYES)on 12-07-2023 [facility] Radiology Study observation (narrative) [facility] [place] 07-11-2023 MEGGAN Telephone (OPHTLN) ANAMARIA CAREY ([id number]) 1955 F Date Time Provider Department 07/11/23 IDANIA MORENO During your visit today, we recorded the following information about you: Gabrielle Serna 07/11/2023 2:07 PM Signed Called patient and left voicemail referral for CAT EVAL with BAT is in folder. Allergies As of Date: 07/11/2023 (Not on File) Date Reviewed: Never Reviewed Reason for Visit: Appointment [[id number]] Problem List As Of Date: 07/11/2023 (None) Encounter Status:Closed by GABRIELLE SERNA on 07/12/23 Normal [facility] INSULINon 10-19-2022 Insulin 10.3 uIU/mL Normal 2.6-24.9 [facility] Comment on above: Performed By: #### I NSULIN #### [facility] [address] [place] [address] Dr. Amalia Godinez CBC AUTO DIFFon 10-18-2022 BASO # 0.0 103/ul Normal 0.0-0.1 [facility] Comment on above: Performed By: #### C BC #### [facility] [address] [place] [address] Dr. Amalia Godinez Basophils/100 WBC (Bld) 0.5 % Normal 0.2-2.0 [facility] Comment on above: Performed By: #### C BC #### [facility] [address] [place] [address] Dr. Amalia Godinez EO # 0.1 103/ul Normal 0.0-0.7 [facility] Comment on above: Performed By: #### C BC #### [facility] [address] [place] [address] Dr. Amalia Godinez Eosinophils/100 WBC (Bld) 1.7 % Normal 0.9-7.0 [facility] Comment on above: Performed By: #### C BC #### [facility] [address] [place] [address] Dr. Amalia Godinez Erythrocyte distribution width (RBC) [Ratio] 12.7 % Normal 11.0-15.0 [facility] Comment on above: Performed By: #### C BC #### [facility] [address] [place] [address] Dr. Amalia Godinez Hematocrit (Bld) [Volume fraction] 39.7 % Normal 36.0-48.0 [facility] Comment on above: Performed By: #### C BC #### [facility] [address] [place] [address] Dr. Amalia Godinez Hemoglobin (Bld) [Mass/Vol] 13.1 g/dL Normal 12.0-16.0 [facility] Comment on above: Performed By: #### C BC #### [facility] [address] [place] [address] Dr. Amalia Godinez IG # 0.04 10e3/ul Critically high 0.00-0.03 [facility] Comment on above: Performed By: #### C BC #### [facility] [address] [place] [address] Dr. Amalia Godinez IG % 0.5 % Normal 0.0-0.5 [facility] Comment on above: Performed By: #### C BC #### [facility] [address] [place] [address] Dr. Amalia Godinez LYMPH # 2.3 103/ul Normal 1.2-3.8 [facility] Comment on above: Performed By: #### C BC #### [facility] [address] [place] [address] Dr. Amalia Godinez Lymphocytes/100 WBC (Bld) 31.1 % Normal 20.5-60.0 [facility] Comment on above: Performed By: #### C BC #### [facility] [address] [place] [address] Dr. Amalia Godinez MANUAL DIFF REQ NO Normal [facility] Comment on above: Performed By: #### C BC #### [facility] [address] [place] [address] Dr. Amalia Godinez MCH (RBC) [Entitic mass] 29.2 pg Normal 26.7-34.0 [facility] Comment on above: Performed By: #### C BC #### [facility] [address] [place] [address] Dr. Amalia Godinez MCHC (RBC) [Mass/Vol] 33.0 g/dL Normal 29.9-35.2 [facility] Comment on above: Performed By: #### C BC #### [facility] [address] [address] [address] Amalia Godinez MCV (RBC) [Entitic vol] 88.6 fL Normal 81.0-99.0 [facility] Comment on above: Performed By: #### C BC #### [facility] [address] [address] [address] Amalia Godinez MONO # 0.5 103/ul Normal 0.3-0.8 [facility] Comment on above: Performed By: #### C BC #### [facility] [address] [address] [address] Amalia Godinez Monocytes/100 WBC (Bld) 6.0 % Normal 1.7-12.0 [facility] Comment on above: Performed By: #### C BC #### [facility] [address] [place] [address] Dr. Amalia Godinez NEUT # 4.5 103/ul Normal 1.4-6.5 [facility] Comment on above: Performed By: #### C BC #### [facility] [address] [place] [address] Dr. Amalia Godinez Neutrophils/100 WBC (Bld) 60.2 % Normal 43.0-75.0 [facility] Comment on above: Performed By: #### C BC #### [facility] [address] [place] [address] Dr. Amalia Godinez Platelet mean volume (Bld) [Entitic vol] 10.3 fL Normal 9.5-13.5 [facility] Comment on above: Performed By: #### C BC #### [facility] [address] [place] [address] Dr. Amalia Godinez PLT 242 103/ul Normal 150-450 [facility] Comment on above: Performed By: #### C BC #### [facility] [address] [address] [address] Amalia Godinez RBC 4.48 106/ul Normal 4.20-5.40 [facility] Comment on above: Performed By: #### C BC #### [facility] [address] [address] [address] Amalia Godinez WBC 7.5 103/ul Normal 4.0-11.0 [facility] Comment on above: Performed By: #### C BC #### [facility] [address] [place] [address] Dr. Amalia Godinez FREE THYROXINE INDEX T7on FTI 2.59 Normal 1.30-4.50 [facility] Comment on above: Performed By: #### 4 [id number] #### [facility] [address] [place] [address] Dr. Amalia Godinez T3U 36.0 % Normal 30.0-39.0 [facility] Comment on above: Performed By: #### 4 [id number] #### [facility] [address] [place] [address] Dr. Amalia Godinez T4 [Mass/Vol] 7.20 ug/dL Normal 4.80-13.90 [facility] Comment on above: Performed By: #### 4 [id number] #### [facility] [address] [place] [address] Dr. Amalia Godinez GLYCOHEMOGLOBIN A1Con 2022 ADA RECOMMENDATION SEE BELOW Normal [facility] Comment on above: Result Comment: ADA RECOMMENDED LIMIT 4.0 - 6.0 ADA THERAPEUTIC TARGET < 7.0 ACTION SUGGESTED > 7.0 Performed By: #### A 1C #### [facility] [address] [place] [address] Dr. Amalia Godinez Glucose [Mass/Vol] 123 mg/dL Normal [facility] Comment on above: Performed By: #### A 1C #### [facility] [address] [place] [address] Dr. Amalia Godinez HbA1c (Bld) [Mass fraction] 5.9 % Normal 4.5-6.2 [facility] Comment on above: Performed By: #### A 1C #### [facility] [address] [place] [address] Dr. Amalia Godinez IRONon 03-21-2023 Iron [Mass/Vol] 93.0 ug/dL Normal 50.0-170.0 [facility] Comment on above: Performed By: #### 4 [id number] #### [facility] [address] [address] [address] Amalia Godinez LIPID PROFILEon 10-18-2022 CHOL-HDL RATIO NORM SEE BELOW Normal [facility] Comment on above: Result Comment: 3.3 - 4.4 LOW RISK 4.4 - 7.1 AVERAGE RISK 7.1 - 11.0 MODERATE RISK >11.0 HIGH RISK Performed By: #### 4 [id number] #### [facility] [address] [address] [address] Amalia Godinez Cholesterol [Mass/Vol] 267 mg/dL Critically high <=200 [facility] Comment on above: Performed By: #### 4 [id number] #### [facility] [address] [address] [address] Amalia Godinez Cholesterol in HDL [Mass/Vol] 62 mg/dL Critically high 40-60 [facility] Comment on above: Performed By: #### 4 [id number] #### [facility] [address] [address] [address] Amalia Godinez Cholesterol in LDL [Mass/Vol] 163.8 mg/dL Normal [facility] Comment on above: Performed By: #### 4 [id number] #### [facility] [address] [address] [address] Amalia Godinez Cholesterol.total/Ch olesterol in HDL [Mass ratio] 4.3 {ratio} Normal [facility] Comment on above: Performed By: #### 4 [id number] #### [facility] [address] [address] [address] Amalia Godinez HDL NORMAL > or = 60 mg/dl - LO W CARDIOVASCULAR RISK <40 mg/dl - HIGH CARDIOVASCULAR RISK Normal [facility] Comment on above: Performed By: #### 4 [id number] #### [facility] [address] [address] [address] Amalia Godinez LDL CALC NORMAL SEE BELOW Normal [facility] Comment on above: Result Comment: <100 mg/dl OPTIMAL 100 - 129 mg/dl NEAR OR ABOVE OPTIMAL 130 - 159 mg/dl BORDERLINE HIGH 160 - 189 mg/dl HIGH >190 mg/dl VERY HIGH Performed By: #### 4 [id number] #### [facility] [address] [place] [address] Dr. Amalia Godinez Triglyceride [Mass/Vol] 206 mg/dL Critically high <=150 [facility] Comment on above: Performed By: #### 4 [id number] #### [facility] [address] [place] [address] Dr. Amalia Godinez VLDL CALC 41.2 mg/dL Normal [facility] Comment on above: Performed By: #### 4 [id number] #### [facility] [address] [place] [address] Dr. Amalia Godinez PROF 14(COMP METB)on 023 Albumin [Mass/Vol] 4.1 g/dL Normal 3.4-5.0 [facility] Comment on above: Performed By: #### 4 [id number] #### [facility] [address] [place] [address] Dr. Amalia Godinez Albumin/Globulin [Mass ratio] 1.2 {ratio} Normal [facility] Comment on above: Performed By: #### 4 [id number] #### [facility] [address] [place] [address] Dr. Amalia Godinez ALP [Catalytic activity/Vol] 50 U/L Normal 46-116 [facility] Comment on above: Performed By: #### 4 [id number] #### [facility] [address] [place] [address] Dr. Amalia Godinez ALT [Catalytic activity/Vol] 29 U/L Normal 14-59 [facility] Comment on above: Performed By: #### 4 [id number] #### [facility] [address] [place] [address] Dr. Amalia Godinez Anion gap [Moles/Vol] 12.9 mmol/L Normal [facility] Comment on above: Performed By: #### 4 [id number] #### [facility] [address] [place] [address] Dr. Amalia Godinez AST [Catalytic activity/Vol] 23 U/L Normal 15-37 [facility] Comment on above: Performed By: #### 4 [id number] #### [facility] [address] [place] [address] Dr. Amalia Godinez Bilirubin [Mass/Vol] 0.5 mg/dL Normal 0.2-1.0 [facility] Comment on above: Performed By: #### 4 [id number] #### [facility] [address] [place] [address] Dr. Amalia Godinez Calcium [Mass/Vol] 9.5 mg/dL Normal 8.5-10.1 [facility] Comment on above: Performed By: #### 4 [id number] #### [facility] [address] [place] [address] Dr. Amalia Godinez Chloride [Moles/Vol] 103 mmol/L Normal 98-107 [facility] Comment on above: Performed By: #### 4 [id number] #### [facility] [address] [place] [address] Dr. Amalia Godinez CO2 [Moles/Vol] 27.3 mmol/L Normal 21.0-32.0 [facility] Comment on above: Performed By: #### 4 [id number] #### [facility] [address] [place] [address] Dr. Amalia Godinez Creatinine [Mass/Vol] 0.69 mg/dL Normal 0.55-1.02 [facility] Comment on above: Performed By: #### 4 [id number] #### [facility] [address] [place] [address] Dr. Amalia Godinez EGFR-AF BELIZEAN >60 Normal >=60 [facility] Comment on above: Performed By: #### 4 [id number] #### [facility] [address] [place] [address] Dr. Amalia Godinez EGFR-NON AF BELIZEAN >60 Normal >=60 [facility] [facility] Comment on above: Performed By: #### [id number] #### [facility] [address] [place] [address] Dr. Amalia Godinez Globulin (S) [Mass/Vol] 3.3 g/dL Normal [facility] Comment on above: Performed By: #### 4 [id number] #### [facility] [address] [address] [address] Amalia Godinez Glucose [Mass/Vol] 132 mg/dL Critically high 74-106 T [facility] Comment on above: Performed By: #### 4 [id number] #### [facility] [address] [address] [address] Amalia Godinez Potassium [Moles/Vol] 4.2 mmol/L Normal 3.5-5.1 [facility] Comment on above: Performed By: #### 4 [id number] #### [facility] [address] [place] [address] Dr. Amalia Godinez Protein [Mass/Vol] 7.4 g/dL Normal 6.4-8.2 [facility] Comment on above: Performed By: #### 4 [id number] #### [facility] [address] [place] [address] Dr. Amalia Godinez Sodium [Moles/Vol] 139 mmol/L Normal 136-145 [facility] Comment on above: Performed By: #### 4 [id number] #### [facility] [address] [place] [address] Dr. Amalia Godinez Urea nitrogen [Mass/Vol] 19.0 mg/dL Critically high 7.0-18.0 [facility] Comment on above: Performed By: #### 4 [id number] #### [facility] [address] [place] [address] Dr. Amalia Godinez Urea nitrogen/Creatinine [Mass ratio] 27.5 mg/mg Normal [facility] Comment on above: Performed By: #### 4 [id number] #### [facility] [address] [place] [address] Dr. Amalia Godinez TSHon 10-18-2022 TSH 1.507 uIU/mL Normal 0.358-3.740 [facility] Comment on above: Performed By: #### 4 [id number] #### [facility] [address] [address] [address] Amalia Godinez VITAMIN D 25 OHon 10-18-2022 VIT D 25-OH 79.9 ng/mL Normal [facility] Comment on above: Performed By: #### 4 [id number] #### [facility] [address] [address] [address] Amalia Godinez VIT D RANGES SEE BELOW Normal [facility] Comment on above: Result Comment: <20 ng/mL Vit D deficient 20 - <30 ng/mL Vit D insufficient 30 - 100 ng/mL Vit D sufficient >100 ng/mL Potential Toxicity Performed By: #### 4 [id number] #### [facility] [address] [address] [address] Amalia Godinez ECHOCARDIO M/2D COMPLETEon 1 09-20-2021 ECHOCARDIO M/2D COMPLETE Patient: ANAMARIA CAREY Exam Date: 07/20/2022 : 1955 Gender:F Ordering : DR ZHAO TRINIDAD . Admission #: [id number] Family : Order #: [id number] CLICK HERE TO VIEW EXAM ECHOCARDIOGRAM REPORT PROCEDURE: CARDIO PULMONARY ECHOCARDIO M/2D COMP INDICATIONS: Dyspnea COMPARISON: None. DESCRIPTION: COMPLETE ECHOCARDIOGRAM Real-time transthoracic echocardiography with 2D, M-mode, spectral and color flow Doppler performed. QUALITY: Technical quality was good. LEFT VENTRICLE: Normal chamber size. Proximal septal hypertrophy (sigmoid septum). Global left ventricular systolic function is normal. LV EF: Calculated left ventricular ejection fraction is 69%. DIASTOLIC: Grade I diastolic dysfunction. ATRIAL SEPTUM: LEFT ATRIUM: Normal chamber size. RIGHT ATRIUM: Normal chamber size. RIGHT VENTRICLE: Normal chamber size. Normal right ventricular systolic function. TRICUSPID VALVE: Normal mobility and thickness. No stenosis with trivial regurgitation. No evidence of pulmonary hypertension. Unable to assess right-sided pressures due to lack of measurable tricuspid regurgitation. MITRAL VALVE: Normal mobility and thickness. No mitral valve prolapse. No evidence of mitral valve stenosis. There is no mitral annular calcification. Trivial mitral regurgitation. AORTIC VALVE: Normal trileaflet appearance. Mildly calcified aortic valve. Normal leaflet mobility. No evidence of aortic valve stenosis. DVI 0.8. No evidence of subaortic stenosis. No aortic regurgitation. AORTIC ROOT: Normal diameter and appearance. PULMONIC VALVE: Normal thickness and mobility. No stenosis. No regurgitation. PERICARDIUM: Trivial pericardial effusion. IVC: Collapses with inspirations. Normal size. PLEURA: CONCLUSION: 1. Normal ventricular systolic function. LVEF is 65 to 70%. 2. Mild diastolic dysfunction. 3. No significant valvular dysfunction. 4. Unable to assess right-sided pressures due to lack of measurable tricuspid regurgitation. 5. No pericardial effusion. Adult Echocardiography Procedure Report Left Ventricle LVEDD (3.7 - 5.6 cm): 3.28 cm LVESD (2.2 - 4.0 cm): 2.16 cm LVIVS thickness (0.6 - 1.2 cm): 1.09 cm LVPW thickness (0.5 - 1.0 cm): 1.17 cm e': 0.08 m/s E - e': 6.90 LVOT Max Gradient: 5.65 mm[Hg], 5.46 mm[Hg] Peak Velocity (LVOT): 1.19 m/s, 1.17 m/s Mean Velocity (LVOT): 0.80 m/s, 0.83 m/s LVOT Diameter 2.00 cm Left Ventricular Ejection Fraction: 65-70% Left Atrium LA Volume Index (2D A2C): 38.89 ml, 38.89 ml Left Atrium Systolic Dimension: 2.89 cm Mitral Valve MV E to A Ratio: 0.67 Mitral Valve A-Wave Peak Velocity: 0.87 m/s Mitral Valve E-Wave Peak Velocity: 0.58 m/s Right Ventricle RV Internal Diastolic Dimension: 2.69 cm Aorta AO Root Diam: 2.82 cm Ascending Ao Diam: 2.62 cm Aortic Valve AoV Area (Peak Ko): 2.64 cm2, 2.72 cm2, 2.55 cm2 AoV Area (VTI): 2.68 cm2, 2.89 cm2, 2.47 cm2 Peak Velocity(Antegrade Flow): 1.37 m/s, 1.43 m/s Peak Gradient(Antegrade Flow): 7.49 mm[Hg], 8.21 mm[Hg] Mean Velocity(Antegrade Flow): 0.97 m/s, 0.96 m/s Mean Gradient(Antegrade Flow): 4.19 mm[Hg], 4.23 mm[Hg] Velocity Time Integral: 26.66 cm, 27.12 cm Tricuspid Valve Peak Velocity (Regurgitant Flow): 1.47 m/s, 1.43 m/s, 1.43 m/s Pulmonic Valve Peak Velocity: 1.04 m/s, 1.02 m/s Peak Gradient: 4.36 mm[Hg], 4.12 mm[Hg] Right Atrium Right Atrium Systolic Pressure: 31.96 ml, 31.96 ml Dictated by: Lefty Valdovinos M.D. on 07/21/2022 at 15:43 Approved by: Lefty Valdovinos M.D. on 07/21/2022 at 15:47 Normal [facility] NM STRESS/REST MULTIon 07-20 NM STRESS/REST MULTI Patient: DAYANA CAREY Exam Date: 07/20/2022 : 1955 Gender:F Ordering : DR ZHAO TRINIDAD . Admission #: [id number] Family : Order #: [id number] CLICK HERE TO VIEW EXAM RADIOLOGY REPORT PROCEDURE: RADIONUCLIDE IMAGING STRESS/REST MULTI COMPARISON: None. INDICATIONS: Chest pain TECHNIQUE: Exam Description: Stress/Rest one day protocol gated SPECT Rest Imagin.1 mCi Tc-99m Cardiolite IV on 07/20/2022 Stress Imaging 31.4 mCi Tc-99m Cardiolite IV on 07/20/2022 Exercise Protocol: Kong Heart Rate (bpm): Rest: 84 Max: 160 PMHR: 105 Blood Pressure: Rest: 122/78 Max: 160/98 Exercise Time: Minutes: 7 Seconds: 00 Stage Reached: Stage: 3 Mets 10 Symptoms: Rest and peak stress ECG findings were normal and the exercise portion of the study was normal per attending physician Dr. Becker . For more details please see separate cardiac stress test report. FINDINGS: QUALITY OF STUDY: Excellent. PERFUSION DEFECT: None. LOCATION: N/A SIZE: N/A. SEVERITY: N/A. TYPE: N/A. WALL MOTION: Normal. LV SIZE: Normal. 41 mL. TID / TCD: None; 0.7 LVEF: Normal. Calculated EF 91%. SUMMARY: Myocardial perfusion imaging study is NORMAL. CONCLUSION: 1. Normal nuclear medicine myocardial perfusion scan. Dictated by: Carlos Fontanez M.D. on 07/20/2022 at 15:27 Approved by: Carlos Fontanez M.D. on 07/20/2022 at 15:30 Normal [facility] Physician Referralon 022 Physician Referral [phone] [id number] D:127 Normal [facility] XR CHEST 2 Von 02-15-2022 XR CHEST 2 V EXAMINATION: XR CHES T 2 V HISTORY: Cough , chronic COMPARISON: No relevant comparison available. FINDINGS: LUNGS: No significant pulmonary parenchymal abnormalities. VASCULATURE: No increased pulmonary vasculature. PLEURA: No pneumothorax, effusion, or pleural thickening. CARDIAC: No cardiomegaly or cardiac silhouette abnormality. MEDIASTINUM: No visible mass or adenopathy. BONES: No fracture or visible bone lesion. OTHER: Negative. IMPRESSION: 1. No acute cardiopulmonary process or significant chronic interstitial changes. Electronically authenticated by: CARLOS FONTANEZ Date: 2022-02-15 16:02 Normal [facility] PAP ACOG PANEL 2: 30 to 65on 01-27-2022 . . Normal [facility] Comment on above: Performed By: #### [id number] #### [facility] [address] [address] [address] Amalia Godinez Age Gdln ACOG Testing Comment Normal [facility] Comment on above: Result Comment: <21 or >65 or no age provided Performed By: #### 4 [id number] #### [facility] [address] [address] [address] Amalia Godinez DIAGNOSIS: Comment Normal [facility] Comment on above: Result Comment: NEGA TIVE FOR INTRAEPITHELIAL LESION OR MALIGNANCY. CELLULAR CHANGES ASSOCIATED WITH ATROPHY ARE PRESENT. Performed By: #### 4 [id number] #### [facility] [address] [address] [address] Amalia Godinez Methodology: Comment Normal [facility] Comment on above: Result Comment: This liquid based ThinPrep(R) pap test was screened with the use of an image guided system. Performed By: #### 4 [id number] #### [facility] [address] [address] [address] Amalia Godinez Note: Comment Normal [facility] Comment on above: Result Comment: The Pap smear is a screening test designed to aid in the detection of premalignant and malignant conditions of the uterine cervix. It is not a diagnostic procedure and should not be used as the sole means of detecting cervical cancer. Both false-positive and false-negative reports do occur. . Performed By: #### 4 [id number] #### [facility] [address] [address] [address] Amalia Godinez Performed by: Comment Normal [facility] Comment on above: Result Comment: Katherine Del Rio[employer] Mark[employer] (ASCP) Performed By: #### 4 [id number] #### [facility] [address] [address] [address] Amalia Godinez Specimen adequacy: Comment Normal [facility] Comment on above: Result Comment: Sati sfactory for evaluation. Endocervical component may not be distinguished in cases of atrophy. Performed By: #### 4 [id number] #### [facility] [address] [place] [address] Dr. Amalia Godinez MG MAMM SCREEN 3D CARISSA CADon 01-17-2022 MG MAMM SCREEN 3D CARISSA CAD Patient: ANAMARIA CAREY Exam Date: 01/17/2022 : 1955 Gender:F Ordering : DR MESSI BEYER . Admission #: [id number] Family : Order #: [id number] CLICK HERE TO VIEW EXAM RADIOLOGY REPORT PROCEDURE: MAMMOGRAM SCREENING 3D BILATERAL CAD COMPARISON: MG MAMM SCREEN 3D CARISSA CAD, 11/30/2020. MG MAMM SCREEN CARISSA W CAD, 09/03/2019. INDICATIONS: Screening mammography Calculator Name NCI Breast Cancer Risk Assessment Tool 5 Year Breast Cancer Risk 1.50% Lifetime Breast Cancer Risk 5.00% Personal Breast Cancer No Personal Ovarian Cancer No Treatments HYSTERECTOMY Family Cancers Grandfather-paternal with colon cancer at age 56. LOCATION: [facility] BREAST COMPOSITION: Almost entirely fatty. FINDINGS: DIAGNOSTIC CATEGORY 2--BENIGN FINDING: RIGHT BREAST: No significant suspicious finding. Scattered benign-appearing calcifications are present. No significant change has occurred. LEFT BREAST: No significant suspicious finding. Scattered benign-appearing calcifications are present. No significant change has occurred. RECOMMENDATIONS: ROUTINE MAMMOGRAM AND CLINICAL EVALUATION IN 12 MONTHS. PLEASE NOTE: A NORMAL MAMMOGRAM DOES NOT EXCLUDE THE POSSIBILITY OF BREAST CANCER. A CLINICALLY SUSPICIOUS PALPABLE LUMP SHOULD BE BIOPSIED. Dictated by: Carlos Fontanez M.D. on 01/17/2022 at 13:55 Approved by: Carlos Fontanez M.D. on 01/17/2022 at 14:04 Normal [facility] XR DEXA BONE DENSITYon 01-17 XR DEXA BONE DENSITY EXAMINATION: XR DEX A BONE DENSITY, 01/17/2022 1:00 PM EDT HISTORY: Menopause present COMPARISON: DEXA bone densitometry 09/03/2019 TECHNIQUE: Dual-energy X-ray absorptiometry (DEXA) bone density study performed for the axial skeleton. FINDINGS: SPINE ANALYSIS: Average bone mineral density is 1.206 g/cm2. T-score (standard deviation relative to young adult mean): 0.2 . +5.3% change since prior study. HIP ANALYSIS: Lowest bone mineral density is within the right femoral trochanter, 0.620 g/cm2. T-score (standard deviation relative to young adult mean): -2.0 . +7.2% change since prior study. IMPRESSION: World [employer] Classification: Osteopenia - Moderate Fracture Risk Electronically authenticated by: CARLOS FONTANEZ Date: 2022-01-17 16:45 [facility] PAP ACOG PANEL 2: 30 to 65on 01-06-2022 . . Normal [facility] Comment on above: Performed By: #### [id number] #### [facility] [address] [place] [address] Dr. Amalia Godinez Age Gdln ACOG Testing Comment Normal [facility] Comment on above: Result Comment: <21 or >65 or no age provided Performed By: #### 4 [id number] #### [facility] [address] [place] [address] Dr. Amalia Godinez DIAGNOSIS: Comment [facility] Comment on above: Result Comment: UNSA TISFACTORY FOR EVALUATION. Performed By: #### 4 [id number] #### [facility] [address] [place] [address] Dr. Amalia Godinez Methodology: Comment [facility] Comment on above: Result Comment: This liquid based ThinPrep(R) pap test was screened with the use of an image guided system. Performed By: #### 4 [id number] #### [facility] [address] [address] [address] Amalia Godinez Note: Comment Normal [facility] Comment on above: Result Comment: The Pap smear is a screening test designed to aid in the detection of premalignant and malignant conditions of the uterine cervix. It is not a diagnostic procedure and should not be used as the sole means of detecting cervical cancer. Both false-positive and false-negative reports do occur. . Performed By: #### 4 [id number] #### [facility] [address] [place] [address] Dr. Amalia Godinez Performed by: Comment Normal [facility] Comment on above: Result Comment: Elana Brink, [employer] Performed By: #### 4 [id number] #### [facility] [address] [place] [address] Dr. Amalia Godinez QC reviewed by: Comment Normal [facility] Comment on above: Result Comment: Maribell Ferreira, Supervisory Company Marker (ASCP) Performed By: #### 4 [id number] #### [facility] [address] [place] [address] Dr. Amalia Godinez Recommendation: Comment Normal [facility] Comment on above: Result Comment: Sugg est follow up as clinically appropriate. Performed By: #### 4 [id number] #### [facility] [address] [place] [address] Dr. Amalia Godinez Specimen adequacy: Comment Normal [facility] Comment on above: Result Comment: Spec imen processed and examined, but unsatisfactory for evaluation of epithelial abnormality because of excessive lubricant. Performed By: #### 4 [id number] #### [facility] [address] [place] [address] Dr. Amalia Godinez Vital Signs Date Time Vital Sign Value Performing Clinician Della malagon 12-07-2023 10:00-0400 Body height 170.2 cm Pacc 1 Work Phone: [facility] 12-07-2023 10:00-0400 Body mass index (BMI) [Ratio] 26.76 kg/m2 Pacc 1 Work Phone: [facility] 12-07-2023 10:00-0400 Body temperature 97.7 [degF] Pacc 1 Work Phone: [facility] 12-07-2023 10:00-0400 Body weight 77.5 kg Pacc 1 Work Phone: [facility] 12-07-2023 10:00-0400 Diastolic blood pressure 68 mm[Hg] Pacc 1 Work Phone: [facility] 12-07-2023 10:00-0400 Heart rate 75 /min Pacc 1 Work Phone: [facility] 12-07-2023 10:00-0400 Respiratory rate 16 /min Pacc 1 Work Phone: [facility] 12-07-2023 10:00-0400 SaO2% (BldA) [Mass fraction] 98 % Pacc 1 Work Phone: [facility] 12-07-2023 10:00-0400 Systolic blood pressure 132 mm[Hg] Pacc 1 Work Phone: [facility] Encounters Encounter Date Encounter Type Care Provider Facility Start: 01-03-2024 End: 01-03-2024 [facility] Facility:[facility] Start: 12-20-2023 End: 12-20-2023 [facility] Facility:[facility] Start: 12-07-2023 End: 12-07-2023 Patient encounter procedure Eye Measurements Work Phone: Ophthalmology Comment on above: Combined forms of ag e-related cataract of both eyes Start: 12-07-2023 End: 12-07-2023 Admission to establishment [facility] Work Phone: Pre Anesthesia Start: 12-07-2023 End: 12-07-2023 ambulatory [facility] Facility:[facility] Start: 12-07-2023 End: 12-07-2023 Anesthesia consultation [facility] [place] [facility] Work Phone: Pre Anesthesia Comment on above: Pre-op evaluation (P rimary Dx); Primary hypertension; Hyperlipidemia, unspecified hyperlipidemia type; Gastro-esophageal reflux disease without esophagitis Start: 12-07-2023 End: 12-07-2023 Preprocedural examination done [facility] Bernard Love Work Phone: [facility] Work Phone: Start: 11-29-2023 End: 11-29-2023 ambulatory ZHAO TRINIDAD Facility:[facility] Start: 09-28-2023 End: 09-28-2023 ambulatory IDANIA MORENO V Facility:[facility] Start: 09-28-2023 End: 09-28-2023 Patient encounter procedure Idania Moreno MD Work Phone: Ophthalmology Comment on above: Combined forms of ag e-related cataract of both eyes (Primary Dx); Macular drusen, left Start: 12-29-[address] ZHAO TRINIDAD . Facili ty:[facility] Start: 10-18-2022 End: 10-19-[address] ZHAO TRINIDAD . Facility: Start: 07-20-2022 End: 07-21-[address] ZHAO TRINIDAD . Facility:[facility] Start: 07-04-2022 ambulatory Kory JARRETT Facility : [facility] Start: 02-14-2022 End: 02-15-[address] ZHAO TRINIDAD . Facility: Start: 01-24-2022 End: 01-24-[address] MESSI BEYER . Facility: Start: 01-17-2022 End: 01-18-[address] MESSI BEYER . Facility:[facility] Start: 01-03-2022 End: 01-03-[address] MESSI BEYER . Facility: Procedures Date Procedure Procedure Detail Performing Clinician Start: 12-07-2023 IOL BIOMETRY W/ IOL CALC OU (BOTH EYES) Idania Moreno MD Work Phone: Plan of Treatment Date Care Activity Detail Author Start: 09-27-2024 End: 03-21-2025 IOL BIOMETRY W/ IOL CALC OU (BOTH EYES) IOL BIOMETRY W/ IOL CALC OU (BOTH EYES) [facility] Imaging Routine Combined forms of age-related cataract of both eyes Expected: 09/27/2024, Expires: 03/21/2025 [facility] Work Phone: Comment on above: Expected: 09/27/2024, Expires: Start: 01-12-2024 End: 01-12-2024 Patient encounter procedure 01/12/2024 1:45 PM EDT Office Visit [facility] Ophthalmology [address] [place] [address] Blank Rosenberg S, OD [address] [place] [address] 1 WEEK POSTOP CATARACT SURGERY LEFT THEN RIGHT NICKI DR CODY OUT OF THE OFFICE Ophthalmology Comment on above: 1 WEEK POSTOP CATARACT SURGERY LEFT THEN RIGHT NICKI DR CODY OUT OF THE OFFICE Start: 01-03-2024 End: 01-03-2024 Admission to same day surgery center 01/03/2024 8:50 AM EDT - 01/03/2024 9:20 AM EDT Surgery Ambulatory Surgery [address] [place] [address] Idania Moreno V, MD [address] [place], [place] [id number] PHACOEMULSIFICATION CATARACT IMPLANT INTRAOCULAR LENS W/O ENDOSCOPIC CYCLOPHOTOCOAGULATION Ambulatory Surgery Comment on above: PHACOEMULSIFICATION CATARACT IMPLANT INT RAOCULAR LENS W/O ENDOSCOPIC CYCLOPHOTOCOAGULATION Start: 01-03-2024 End: 01-03-2024 Oph bmtry prtl coher intrfrmtry io lens pwr karen OPHTHALMIC BIOMETRY BY PARTIAL COHERENCE INTERFEROMETRY W/INTRAOCULAR LENS POWER CALCULATION Combined forms of age-related cataract of both eyes 01/03/2024 8:50 AM EDT [facility] Start: 01-03-2024 Subsequent hospital visit by physician 01/03/2024 8:50 AM EDT Hospital Encounter Ambulatory Surgery [address] [place] [address] Idania Moreno V, MD [address] [place], [place] [id number] Combined forms of age-related cataract of both eyes [H25.813] Ambulatory Surgery Comment on above: Combined forms of age-related cataract o f both eyes [H25.813] Start: 01-03-2024 End: 01-03-2024 Xcapsl ctrc rmvl insj io lens prosth w/o ecp PHACOEMULSIFICATION CATARACT IMPLANT INTRAOCULAR LENS W/O ENDOSCOPIC CYCLOPHOTOCOAGULATION Combined forms of age-related cataract of both eyes 01/03/2024 8:50 AM EDT [facility] Start: 12-20-2023 End: 12-20-2023 Admission to same day surgery center 12/20/2023 10:00 AM EDT - 12/20/2023 10:30 AM EDT Surgery Ambulatory Surgery [address] [place] [address] Idania Moreno V, MD [address] [place] [address] PHACOEMULSIFICATION CATARACT IMPLANT INTRAOCULAR LENS W/O ENDOSCOPIC CYCLOPHOTOCOAGULATION Ambulatory Surgery Comment on above: PHACOEMULSIFICATION CATARACT IMPLANT INT RAOCULAR LENS W/O ENDOSCOPIC CYCLOPHOTOCOAGULATION Start: 12-20-2023 End: 12-20-2023 Oph bmtry prtl coher intrfrmtry io lens pwr karen OPHTHALMIC BIOMETRY BY PARTIAL COHERENCE INTERFEROMETRY W/INTRAOCULAR LENS POWER CALCULATION Combined forms of age-related cataract of both eyes 12/20/2023 10:00 AM EDT [facility] Start: 12-20-2023 Subsequent hospital visit by physician 12/20/2023 10:00 AM EDT Hospital Encounter Ambulatory Surgery [address] [place] [address] Idania Moreno V, MD [address] [place] [address] Combined forms of age-related cataract of both eyes [H25.813] Ambulatory Surgery Comment on above: Combined forms of age-related cataract o f both eyes [H25.813] Start: 12-20-2023 End: 12-20-2023 Xcapsl ctrc rmvl insj io lens prosth w/o ecp PHACOEMULSIFICATION CATARACT IMPLANT INTRAOCULAR LENS W/O ENDOSCOPIC CYCLOPHOTOCOAGULATION Combined forms of age-related cataract of both eyes 12/20/2023 10:00 AM EDT [facility] Start: 11-03-2023 Covid-19 Vaccine () Covid-19 Vaccine () [facility] Start: 07-31-2023 Advance Directive Discussion Advance Directive Discussion [facility] Start: 07-31-2023 Behavioral Health Screening Behavioral Health Screening [facility] Start: 07-31-2023 Depression Assessment Depression Assessment [facility] Start: 2018 Screening for osteoporosis Bone Density Screening [facility] Start: 2013 RSV Vaccine (1 - 1-dose 60+ series) RSV Vaccine (1 - 1-dose 60+ series) [facility] Start: 1998 Diabetes Screening Diabetes Screening [facility] Start: 1998 Lipid panel Lipid Screening [facility] Start: 1998 Screening for malignant neoplasm of colon [facility] Start: 1993 Screening for malignant neoplasm of breast Mammogram Screening [facility] Start: 1972 Urine microalbumin profile DTaP,Tdap,Td Vaccine (1 - Tdap) [facility] Start: 1971 Annual PCP Team Chronic Disease Visit Annual PCP Team Chronic Disease Visit [facility] Start: 1971 BP Controlled (<130/80) BP Controlled (<130/80) [facility] inic Start: 1971 Hepatitis C screening Hepatitis C Screening [facility] CORNEAL TOPOGRAPHY A TLAS OU (BOTH EYES) CORNEAL TOPOGRAPHY ATLAS OU (BOTH EYES) [facility] Imaging Routine Combined forms of age-related cataract of both eyes 12/07/2023 11:17 AM EDT [facility] Work Phone: End: 02-28-2025 CORNEAL TOPOGRAPHY PENTACAM OU (BOTH EYES) CORNEAL TOPOGRAPHY PENTACAM OU (BOTH EYES) [facility] Imaging Routine Combined forms of age-related cataract of both eyes 1 Occurrences starting 09/07/2023 until 02/28/2025 [facility] Work Phone: Comment on above: 1 Occurrences starting 09/07/2023 until 02/28/2025 End: 02-28-2025 OCT MACULA CIRRUS OU (BOTH EYES) OCT MACULA CIRRUS OU (BOTH EYES) [facility] Imaging Routine Combined forms of age-related cataract of both eyes 1 Occurrences starting 09/07/2023 until 02/28/2025 [facility] Work Phone: Comment on above: 1 Occurrences starting 09/07/2023 until 02/28/2025 OCT MACULA CIRRUS OU (BOTH EYES) OCT MACULA CIRRUS OU (BOTH EYES) OPHT Imaging Routine Combined forms of age-related cataract of both eyes 09/28/2023 10:45 AM EST [facility] Work Phone: [facility] Payers Date Payer Category Payer Unknown MMO MMO MEDICARE SUPPLEMENT [id number] 2021-Present [phone] [address] [place] [address] Indemnity [id number] 2018 Medicare MEDICARE MEDICAR E A AND B [id number] 2018-Present [phone] [address] [address] [place] [address] Medicare [id number] 1959 Medicare [id number] 1959 Self-pay [id number] 1959 Unknown [id number] 1953 Unknown [id number] 1953 Unknown [id number] 1953 Unknown [id number] 1953 Unknown [id number] 1953 Unknown [id number] 1953 Unknown [id number] 1953 Unknown [id number] 1953 Unknown [id number] Social History Date Type Detail Facility Start: 09-28-[facility]23 [facility] Work Phone: History of tobacco use Current smoker [facility] Work Phone: History of tobacco use Cigarette Smoker [facility] Work Phone: Start: 09-28-2023 End: 11-29-2023 Cigarettes smoked current (pack per day) - Reported 1 [facility] Start: 09-28-2023 Tobacco use and exposure Smoke less tobacco non-user [facility] Work Phone: Start: 09-28-2023 End: 11-29-2023 Area Deprivation Index [facility] National Score (1-10 0), lower number is lower risk 63 [facility] Start: 1955 Sex Assigned At Not on file [facility] Start: 12-07-2023 Alcohol intake Current drinke r of alcohol (finding) [facility] Start: 12-07-2023 Alcohol Comment wine daily [facility] Medical Equipment Procedure Code Equipment Code Equipment Origin al Text Equipment Identifier Dates USE TO TEST BLOO D SUGAR DAILY DX: E11.9 [id number] Start: 08-10-2023 Comment on above: USE TO TEST BLOOD BEARD GAR DAILY DX: E11.9 Clinical Notes 09-28-2023 to 01-03-2024 Stephane Nielsen COA - 12/07/2023 11:13 AM EDTPatiSamreen Jimenez APRN.BOTANY TEACHER - 12/07/2023 10:01 AM Samreen Odell APRN.BOTANY TEACHER - 12/07/2023 10:01 AM EDT Note Date & Type Note Facility 01-03-2024 Note HNO ID: [id number] Author: MARIE GASCA, ROMAINE Service: ? Author Type: Registered Nurse Type: Nursing Progress Note Filed: 01/03/2024 12:51 Note Text: Pt discharged to home in stable condition. Cont to deny any complaints. [facility] 12-07-2023 Note Date of Procedure 12/07/2023. Supervisor Wet Room Information JOSELITO Chino . Notes Measurements only - see Procedure Record under Scanned Documents for signed results. [facility] 12-07-2023 Note HNO ID: [id number] Author: STEPHANE NIELSEN COA Service: ? Author Type: Supervisor Wet Room Type: Progress Notes Filed: 12/07/2023 11:17 Note Text: CONFIRM AIM PLANO BOTH EYES. PATIENT AWARE THAT SHE WILL NEED GLASSES FOR NEAR AND INTERMEDIATE. JOSELITO Chino [facility] 12-07-2023 History of Present illness Narrative CONFIRM AIM PLANO BOTH EYES. PATIENT AWARE THAT SHE WILL NEED GLASSES FOR NEAR AND INTERMEDIATE. JOSELITO Chino documented in this encounter [facility] 12-07-2023 Instructions Samreen Ricks APRN.BOTANY TEACHER - 12/07/2023 10:05 AM EDT PATIENT PREOPERATIVE INSTRUCTIONS Idania Moreno V, MD has scheduled you for your procedure at this surgery center: [facility]: [phone] --[address] [facility] [place] [address]. Please read below carefully for your personalized instructions. Arrival Time for Surgery: - The Surgery Center or hospital where you are having surgery will call the afternoon before surgery (or Monday for Monday surgery) with a scheduled arrival time. - If you have not heard by 4 pm, please contact the surgery center above. Please be aware that emergency situations arise, which may delay or change your surgical time. If this happens, we will notify you as soon as possible and regret any inconvenience Dietary Restrictions: - No solid food after midnight. - You may have 12 ounces of clear liquids (water, clear juices such as apple juice or gatorade, carbonated beverages, clear tea, black coffee, jello) until 2 hours before scheduled arrival at facility. - no milk / coffee creamer - no pulp juices Medications: Unless instructed differently below, stay on all of your medications until your surgery. Approved medications to take the morning of surgery with a sip of water: You may take all of your medications the morning of surgery If you start any new medications after today's visit, please contact the surgeon's office. Blood Thinning Medications: You do not need to hold blood thinners for cataract surgery Important Reminders: - If you are prescribed inhalers for breathing, continue using them. - Candy, mints, and tobacco products are NOT permitted the morning of surgery. - Hearing aids, dentures and glasses may be worn the morning of surgery. - NO jewelry, body piercings, makeup, hairpins or contacts are to be worn the day of surgery. If you develop symptoms such as a fever, cold, or flu, or have other changes to your health within TWO DAYS of scheduled surgery or the morning of surgery, please contact the surgery center above. Personal Belongings: -Please have photo ID and insurance cards. -If you do not have a copy of advance directives on file with us, please bring a copy with you on the day of surgery. - Leave ALL valuables and money at home or with family members. For Outpatient Procedures: - YOU MUST HAVE A RESPONSIBLE COMPLIANCE COUNSEL TAKE YOU HOME. A ASTRONAUTICAL ENGINEER OR BEATER LEAD CANNOT BE MADE A RESPONSIBLE COMPLIANCE COUNSEL. - We recommend that a responsible person stays with you overnight to take care of you. - You cannot stay in a hotel alone after outpatient surgery. You will not be permitted to have your surgery, if you do not have someone to take care of you. If you already have an Advance Directive, please fax a copy to [phone] or email to for it to be added to your chart. If you do not have an Advance Directive, you can find the appropriate form and more information at [email or web address]. We recommend that you complete the Advance Directive form found on the website and bring it with you the day of your surgery. It can be witnessed and scanned into your chart that day. Samreen Ricks APRN.IVORY documented in this encounter [facility] 12-07-2023 History and physical note HISTORY AND PHYSICAL EXAMINATION SERVICE DATE: 12/07/2023 SERVICE TIME: 10:01 AM PRIMARY CARE PHYSICIAN: Zhao Trinidad MD REASON FOR VISIT: Anamaria Carey is a 68 year old female who is scheduled for bilateral Cataract Surgery at the request of Dr. Idania Moreno V for consultation. My final recommendation will be communicated back to the requesting physician by way of shared medical record or letter. METS: Walk indoors, such as around the house (1.75 METs) Do light work around the house, such as dusting or washing dishes (2.70 METs) Take care of self; that is eating, dressing, bathing, using the toilet (2.75 METs) Climb a flight of stairs or walk up a hill (5.50 METs) Patient denies any chest pain or undue shortness of breath with the above physical activity. ANESTHESIA FINDINGS: Intubation History: No history of difficult intubation Significant Anesthesia Considerations: None Airway Exam: General: Normal appearance Body mass index is 26.76 kg/m . Mallampati Score is CLASS II ULBT: Class II - Lower incisors can bite the upper lip below the rylee line Neck: Normal appearance and function, Distance from hyoid to mentum during neck extension is at least 3 finger breaths Mouth: Normal tongue size and Mouth opening greater than 2 finger breaths Dentition: Intact and Caps/crowns Airway History: No abnormal airway history 12/06/2023 Sleep Apnea Probability Snores loudly: No Tired, fatigued or sleepy in daytime: No Stops breathing or choking/gasping during sleep: No High blood pressure: Yes Sleep Apnea Probability Score: 8 (Sleep study not recommended) Assessment/Plan Primary hypertension Assessment: Stable and compliant with medications Followed by PCP Last 5 Encounter BP Readings: Date: BP: 12/07/2023 132/68 Hyperlipidemia, unspecified Assessment: Controlled with statin. Monitored per PCP. Gastro-esophageal reflux disease without esophagitis Assessment: Well controlled with PPI PLAN This patient is optimally prepared for surgery. CONSULTS: Patient does not require consults for optimization at this time. The Following Tests/Procedures Have Been Initiated: Labs not indicated per PACC protocol, EKG not indicated per P[facility] protocol Planned Anesthetic: Per anesthesia choice The patient has the following: ACTIVE PROBLEM LIST Gastro-Esophageal Reflux Disease Without Esophagitis Hyperlipidemia, Unspecified Primary Hypertension Subjective CHIEF COMPLAINT: Impaired Vision HPI: Patient is a 68 year old female presenting to pre-anesthesia consultation. Patient complains of decreased visual acuity, blurred vision, and difficulty with night driving for > 6 months. Found to have bilateral cataracts. Patient denies pain. No relieving factors, patient has opted for surgical treatment of cataracts. History reviewed. No pertinent past medical history. PAST SURGICAL HISTORY Procedure Laterality Date COLONOSCOPY SCREENING VAGINAL HYSTERECTOMY FAMILY HISTORY Problem Relation Age of Onset Cataract Mother Macular Degen Brother Glaucoma Brother Detached Retina No Family History Blindness No Family History Amblyopia No Family History Strabismus No Family History Anesthesia Problems No Family History SOCIAL HISTORY: Social History Tobacco Use Smoking status: Former Packs/day: 1.00 Years: 15.00 Additional pack years: 0.00 Total pack years: 15.00 Types: Cigarettes Smokeless tobacco: Never Substance Use Topics Alcohol use: Yes Comment: wine daily Drug use: Never MEDICATIONS: Prior to Admission medications as of 12/07/23 1003 Medication Sig Last Dose Taking alendronate (FOSAMAX) 70 mg tablet Take 1 tablet by mouth one time a week. Taking Yes ONETOUCH ULTRA TEST test strip USE TO TEST BLOOD SUGAR DAILY DX: E11.9 Taking Yes cyanocobalamin (VITAMIN B-12) 100 mcg tab Vitamin B12 Taking Yes desvenlafaxine ER (PRISTIQ) 25 mg 24 hr tablet Take 1 tablet by mouth every afternoon. Taking Yes diclofenac, EC, (VOLTAREN) 75 mg EC tablet Take 1 tablet by mouth every 12 hours. Taking Yes estradiol (ESTRACE) 0.01 % (0.1 mg/gram) vaginal cream Use 2 g vaginally. Taking Yes ezetimibe (ZETIA) 10 mg tablet Take 1 tablet by mouth every afternoon. Taking Yes irbesartan (AVAPRO) 150 mg tablet Taking Yes montelukast (SINGULAIR) 10 mg tablet Take 1 tablet by mouth every afternoon. Taking Yes pantoprazole DR (PROTONIX) 40 mg tablet Take 1 tablet by mouth every afternoon. Taking Yes simvastatin (ZOCOR) 20 mg tablet Take 1 tablet by mouth every afternoon. Taking Yes No medication comments found. CURRENT ALLERGIES: ALLERGIES Not on File Covid Immunization Dates Overdue - Covid-19 Vaccine ( season) Overdue since 11/03/2023 07/04/2023 Imm Admin: COVID-19 vaccine, age 12+ yr, season (PFIZER-BIONTECH) 06/21/2022 Imm Admin: COVID-19 vaccine, age 12+ yr, bivalent (PFIZER-BIONTECH) 05/18/2021 Imm Admin: COVID-19 original vaccine, age 12+ yr, monovalent (PFIZER-BIONTECH - PURPLE TOP) 09/30/2020 Imm Admin: COVID-19 original vaccine, age 12+ yr, monovalent (PFIZER-BIONTECH - PURPLE TOP) 09/09/2020 Imm Admin: COVID-19 original vaccine, age 12+ yr, monovalent (PFIZER-BIONTECH - PURPLE TOP) Only the first 5 history entries have been loaded, but more history exists. REVIEW OF SYSTEMS: PAIN ASSESSMENT: General: No weight loss, malaise or fevers. Neuro: No history of TIA's, stroke, FIELD IRRIGATION WORKER tumor, impaired sensorium, hemiplegia, paraplegia or quadraplegia. No neurological symptoms or problems. Respiratory: No history of current cough or dyspnea, or pneumonia in the past 6 weeks. No history of respiratory/pulmonary symptoms or problems. Cardiovascular: Negative for Recent MD, Angina, Arrhythmia, CAD, Chest Pain, CHF, PVD, Valvular Heart Disease, DVT/PE + HTN + HLD GI: No history of GI symptoms or problems. No history of esophageal varices, recent ascites, or ETOH greater than 2 drinks per day. + GERD : No history of dysuria, frequency or incontinence,, stones or chronic kidney disease Endocrine: No history of diabetes. Has not taken steroids within the past 30 days. No history of endocrinological symptoms or problems. Hematology: No history of bleeding or clotting disorder. Pt is not taking anti-coagulation or platelet medications. No history of hematological symptoms or problems. Oncology: No history of CA metastasis, chemo within 30 days, or radiotherapy within 90 days. Has not lost 10% of body wt in 6 months. No history of oncological symptoms or problems. Psych: Depression Musculoskeletal: Negative for joint pain or swelling, back pain or muscle pain. Skin: Negative for lesions, rash and itching. Objective PHYSICAL EXAM: VITALS: BP 132/68 Pulse 75 Temp (Src) 97.7 (Temporal) Resp 16 Ht 5' 7 (1.70m) Wt 170 lb 13.7 oz (77.5kg) SpO2 98% BMI 26.75 kg/(m^2). General: Alert and oriented, No acute distress Skin: Normal color, no rash, no lesions. HEENT: Defer to surgeon Cardiovascular: Normal S1 & S2, no rubs, murmurs or gallops. No JVD. Pulse regular. Lungs: Normal breath sounds, no wheezes or crackles. Extremities: No deformity, no edema or tenderness, no joint swelling or clubbing. Neurological: Normal cognition and motor skills. Diagnostic tests reviewed for today's visit: Instructions Given to Patient: Instructions located in the after visit summary. Patient given verbal and written preop instructions and voices comprehension and compliance. SIGNATURE: Samreen Ricks APRN.IVORY PATIENT NAME: Anamaria Carey DATE: 12/07/2023 TIME: 10:04 AM [facility] 12-07-2023 History and physical note HISTORY AND PHYSICAL EXAMINATION SERVICE DATE: 12/07/2023 SERVICE TIME: 10:01 AM PRIMARY CARE PHYSICIAN: Zhao Trinidad MD REASON FOR VISIT: Anamaria Carey is a 68 year old female who is scheduled for bilateral Cataract Surgery at the request of Dr. Idania Moreno V for consultation. My final recommendation will be communicated back to the requesting physician by way of shared medical record or letter. METS: Walk indoors, such as around the house (1.75 METs) Do light work around the house, such as dusting or washing dishes (2.70 METs) Take care of self; that is eating, dressing, bathing, using the toilet (2.75 METs) Climb a flight of stairs or walk up a hill (5.50 METs) Patient denies any chest pain or undue shortness of breath with the above physical activity. ANESTHESIA FINDINGS: Intubation History: No history of difficult intubation Significant Anesthesia Considerations: None Airway Exam: General: Normal appearance Body mass index is 26.76 kg/m . Mallampati Score is CLASS II ULBT: Class II - Lower incisors can bite the upper lip below the rylee line Neck: Normal appearance and function, Distance from hyoid to mentum during neck extension is at least 3 finger breaths Mouth: Normal tongue size and Mouth opening greater than 2 finger breaths Dentition: Intact and Caps/crowns Airway History: No abnormal airway history 12/06/2023 Sleep Apnea Probability Snores loudly: No Tired, fatigued or sleepy in daytime: No Stops breathing or choking/gasping during sleep: No High blood pressure: Yes Sleep Apnea Probability Score: 8 (Sleep study not recommended) Assessment/Plan Primary hypertension Assessment: Stable and compliant with medications Followed by PCP Last 5 Encounter BP Readings: Date: BP: 12/07/2023 132/68 Hyperlipidemia, unspecified Assessment: Controlled with statin. Monitored per PCP. Gastro-esophageal reflux disease without esophagitis Assessment: Well controlled with PPI PLAN This patient is optimally prepared for surgery. CONSULTS: Patient does not require consults for optimization at this time. The Following Tests/Procedures Have Been Initiated: Labs not indicated per [facility] protocol, EKG not indicated per [facility] protocol Planned Anesthetic: Per anesthesia choice The patient has the following: ACTIVE PROBLEM LIST Gastro-Esophageal Reflux Disease Without Esophagitis Hyperlipidemia, Unspecified Primary Hypertension Subjective CHIEF COMPLAINT: Impaired Vision HPI: Patient is a 68 year old female presenting to pre-anesthesia consultation. Patient complains of decreased visual acuity, blurred vision, and difficulty with night driving for > 6 months. Found to have bilateral cataracts. Patient denies pain. No relieving factors, patient has opted for surgical treatment of cataracts. History reviewed. No pertinent past medical history. PAST SURGICAL HISTORY Procedure Laterality Date COLONOSCOPY SCREENING VAGINAL HYSTERECTOMY FAMILY HISTORY Problem Relation Age of Onset Cataract Mother Macular Degen Brother Glaucoma Brother Detached Retina No Family History Blindness No Family History Amblyopia No Family History Strabismus No Family History Anesthesia Problems No Family History SOCIAL HISTORY: Social History Tobacco Use Smoking status: Former Packs/day: 1.00 Years: 15.00 Additional pack years: 0.00 Total pack years: 15.00 Types: Cigarettes Smokeless tobacco: Never Substance Use Topics Alcohol use: Yes Comment: wine daily Drug use: Never MEDICATIONS: Prior to Admission medications as of 12/07/23 1003 Medication Sig Last Dose Taking alendronate (FOSAMAX) 70 mg tablet Take 1 tablet by mouth one time a week. Taking Yes ONETOUCH ULTRA TEST test strip USE TO TEST BLOOD SUGAR DAILY DX: E11.9 Taking Yes cyanocobalamin (VITAMIN B-12) 100 mcg tab Vitamin B12 Taking Yes desvenlafaxine ER (PRISTIQ) 25 mg 24 hr tablet Take 1 tablet by mouth every afternoon. Taking Yes diclofenac, EC, (VOLTAREN) 75 mg EC tablet Take 1 tablet by mouth every 12 hours. Taking Yes estradiol (ESTRACE) 0.01 % (0.1 mg/gram) vaginal cream Use 2 g vaginally. Taking Yes ezetimibe (ZETIA) 10 mg tablet Take 1 tablet by mouth every afternoon. Taking Yes irbesartan (AVAPRO) 150 mg tablet Taking Yes montelukast (SINGULAIR) 10 mg tablet Take 1 tablet by mouth every afternoon. Taking Yes pantoprazole DR (PROTONIX) 40 mg tablet Take 1 tablet by mouth every afternoon. Taking Yes simvastatin (ZOCOR) 20 mg tablet Take 1 tablet by mouth every afternoon. Taking Yes No medication comments found. CURRENT ALLERGIES: ALLERGIES Not on File Covid Immunization Dates Overdue - Covid-19 Vaccine () Overdue since 11/03/2023 07/04/2023 Imm Admin: COVID-19 vaccine, age 12+ yr, season (PFIZER-BIONTECH) 06/21/2022 Imm Admin: COVID-19 vaccine, age 12+ yr, bivalent (PFIZER-BIONTECH) 05/18/2021 Imm Admin: COVID-19 original vaccine, age 12+ yr, monovalent (PFIZER-BIONTECH - PURPLE TOP) 09/30/2020 Imm Admin: COVID-19 original vaccine, age 12+ yr, monovalent (PFIZER-BIONTECH - PURPLE TOP) 09/09/2020 Imm Admin: COVID-19 original vaccine, age 12+ yr, monovalent (PFIZER-BIONTECH - PURPLE TOP) Only the first 5 history entries have been loaded, but more history exists. REVIEW OF SYSTEMS: PAIN ASSESSMENT: General: No weight loss, malaise or fevers. Neuro: No history of TIA's, stroke, FIELD IRRIGATION WORKER tumor, impaired sensorium, hemiplegia, paraplegia or quadraplegia. No neurological symptoms or problems. Respiratory: No history of current cough or dyspnea, or pneumonia in the past 6 weeks. No history of respiratory/pulmonary symptoms or problems. Cardiovascular: Negative for Recent MD, Angina, Arrhythmia, CAD, Chest Pain, CHF, PVD, Valvular Heart Disease, DVT/PE + HTN + HLD GI: No history of GI symptoms or problems. No history of esophageal varices, recent ascites, or ETOH greater than 2 drinks per day. + GERD : No history of dysuria, frequency or incontinence,, stones or chronic kidney disease Endocrine: No history of diabetes. Has not taken steroids within the past 30 days. No history of endocrinological symptoms or problems. Hematology: No history of bleeding or clotting disorder. Pt is not taking anti-coagulation or platelet medications. No history of hematological symptoms or problems. Oncology: No history of CA metastasis, chemo within 30 days, or radiotherapy within 90 days. Has not lost 10% of body wt in 6 months. No history of oncological symptoms or problems. Psych: Depression Musculoskeletal: Negative for joint pain or swelling, back pain or muscle pain. Skin: Negative for lesions, rash and itching. Objective PHYSICAL EXAM: VITALS: BP 132/68 Pulse 75 Temp (Src) 97.7 (Temporal) Resp 16 Ht 5' 7 (1.70m) Wt 170 lb 13.7 oz (77.5kg) SpO2 98% BMI 26.75 kg/(m^2). General: Alert and oriented, No acute distress Skin: Normal color, no rash, no lesions. HEENT: Defer to surgeon Cardiovascular: Normal S1 & S2, no rubs, murmurs or gallops. No JVD. Pulse regular. Lungs: Normal breath sounds, no wheezes or crackles. Extremities: No deformity, no edema or tenderness, no joint swelling or clubbing. Neurological: Normal cognition and motor skills. Diagnostic tests reviewed for today's visit: Instructions Given to Patient: Instructions located in the after visit summary. Patient given verbal and written preop instructions and voices comprehension and compliance. SIGNATURE: Samreen Ricks APRN.IVORY PATIENT NAME: Anamaria Carey DATE: 12/07/2023 TIME: 10:04 AM documented in this encounter [facility] 09-28-2023 Miscellaneous Notes Addended by: MELINA MENDOZA on: 09/28/2023 12:25 PM Modules accepted: Orders documented in this encounter [facility] 09-28-2023 Note HNO ID: [id number] Author: IDANIA MORENO MD Service: ? Author Type: Physician Type: Progress Notes Filed: 09/28/2023 12:10 Note Text: The documentation for this note was completed by Ondina Hill, COA acting as a scribe for Idania MORENO MD. 09/28/2023 11:58 AM. ASSESSMENT / PLAN: 1. Combined cataract, both eyes - Offered cataract extraction by phacoemulsification and intraocular lens implant with Dr. Moreno, both eyes, left eye first - Aim: plano Both eyes - Flomax/alpha-dillan? No - Toric candidate: Unknown - repeat elizabeth at biometry visit after Artificial tears four times a day x 1 week, comanage fee structure - PanOptix candidate: No - Anesthesia: Topical with MAC - Contact lens use No - History of LASIK/PRK/RK No - Discussed initiate twice daily eyelid scrubs pending U/S biometry and surgery - Comanage with Dr Cody; [facility] POD #1 Cataract Presurgical Documentation Cataract: Both eyes (OU) Current Visual Acuity Right Eye Distance CC 20/25 Left Eye Distance CC 20/25 Best Corrected Vision Right Eye 20/20 Best Corrected Vision Left Eye 20/20-1 Glare Testing: Right Eye High 20/150 Left Eye High 20/150 Visual Function: Anamaria Carey states that the decline in vision from the cataract impedes her abilities as listed in the HPI, as well as other activities of daily living. Anamaria Carey has confirmed that she is no longer able to function adequately on a day-to-day basis because of her current visual condition. Further, it is my medical opinion that the cataract is the primary cause, or at least a significantly contributory cause of her visual dysfunction. With uncomplicated cataract surgery and lens implantation, it is my expectation that her visual function and quality of life will improve significantly. The risks, benefits, alternatives, personnel and complications of cataract surgery with lens implantation were discussed with Anamaria Carey in detail. These included, but are not limited to: infection, bleeding, loss of vision, and the need for additional surgery. she appeared to understand and asked that I proceed with plans for surgery. Patient acknowledges possible need for glasses after procedure. Intraocular lens options were discussed with patient. If patient was a good candidate for multifocal Intraocular lenses, risk of halos, glare, and possible need for glasses was discussed. Informed consent form signed by physician and patient. Literature regarding cataract and cataract extraction by phacoemulsification offered. Return for preadmission testing, biometry AND intraocular lens calculations prior to surgery. The patient was offered a surgery/procedure at a [facility] facility. The surgeon/proceduralist and patient have discussed in detail the risk of exposure to and/or potential harm posed by the COVID-19 virus with having a surgery/procedure at this time versus the risk of delaying the surgery/procedure. It is not possible to know either the risk of delaying the surgery or procedure or chance of getting an infection with perfect accuracy, but a joint decision was made between the patient and the surgeon/proceduralist to proceed at this time with the scheduled surgery/procedure as indicated on the consent form. I have confirmed and edited as necessary the relevant HPI, ophthalmic history, ROS, and the neuro exam findings as obtained by others. I have seen and examined Anamaria Carey. I have discussed the case and the management of this patient's care with the Resident/Fellow, if applicable. I also have reviewed and agree with the assessment and plan as stated above and agree with all of its relevant components. Idania MORENO MD September 28, 2023 11:58 AM [facility] 09-28-2023 History of Present illness Narrative The documentation for this note was completed by JOSELITO Warren acting as a scribe for Idania MORENO MD. 09/28/2023 11:58 AM. ASSESSMENT / PLAN: 1. Combined cataract, both eyes - Offered cataract extraction by phacoemulsification and intraocular lens implant with Dr. Moreno, both eyes, left eye first - Aim: plano Both eyes - Flomax/alpha-dillan? No - Toric candidate: Unknown - repeat elizabeth at biometry visit after Artificial tears four times a day x 1 week, comanage fee structure - PanOptix candidate: No - Anesthesia: Topical with MAC - Contact lens use No - History of LASIK/PRK/RK No - Discussed initiate twice daily eyelid scrubs pending U/S biometry and surgery - Comanage with Dr Cody; [facility] POD #1 Cataract Presurgical Documentation Cataract: Both eyes (OU) Current Visual Acuity Right Eye Distance CC 20/25 Left Eye Distance CC 20/25 Best Corrected Vision Right Eye 20/20 Best Corrected Vision Left Eye 20/20-1 Glare Testing: Right Eye High 20/150 Left Eye High 20/150 Visual Function: Anamaria Carey states that the decline in vision from the cataract impedes her abilities as listed in the HPI, as well as other activities of daily living. Anamaria Carey has confirmed that she is no longer able to function adequately on a day-to-day basis because of her current visual condition. Further, it is my medical opinion that the cataract is the primary cause, or at least a significantly contributory cause of her visual dysfunction. With uncomplicated cataract surgery and lens implantation, it is my expectation that her visual function and quality of life will improve significantly. The risks, benefits, alternatives, personnel and complications of cataract surgery with lens implantation were discussed with Anamaria Carey in detail. These included, but are not limited to: infection, bleeding, loss of vision, and the need for additional surgery. she appeared to understand and asked that I proceed with plans for surgery. Patient acknowledges possible need for glasses after procedure. Intraocular lens options were discussed with patient. If patient was a good candidate for multifocal Intraocular lenses, risk of halos, glare, and possible need for glasses was discussed. Informed consent form signed by physician and patient. Literature regarding cataract and cataract extraction by phacoemulsification offered. Return for preadmission testing, biometry & intraocular lens calculations prior to surgery. The patient was offered a surgery/procedure at a [facility] facility. The surgeon/proceduralist and patient have discussed in detail the risk of exposure to and/or potential harm posed by the COVID-19 virus with having a surgery/procedure at this time versus the risk of delaying the surgery/procedure. It is not possible to know either the risk of delaying the surgery or procedure or chance of getting an infection with perfect accuracy, but a joint decision was made between the patient and the surgeon/proceduralist to proceed at this time with the scheduled surgery/procedure as indicated on the consent form. I have confirmed and edited as necessary the relevant HPI, ophthalmic history, ROS, and the neuro exam findings as obtained by others. I have seen and examined Anamaria Carey. I have discussed the case and the management of this patient's care with the Resident/Fellow, if applicable. I also have reviewed and agree with the assessment and plan as stated above and agree with all of its relevant components. Idania MORENO MD September 28, 2023 11:58 AM ASSESSMENT/PLAN: 1. Combined forms of age-related cataract of both eyes - ICD9: 366.19, ICD10: H25.813 (primary diagnosis) Dr Idania Moreno Cataract evaluation today 2. Macular drusen, left - ICD9: 362.57, ICD10: H35.362 Pt ed Monitor with Dr Cody for Progression toward macular Degeneration September 28, 2023 11:28 AM documented in this encounter [facility] 09-28-2023 Note HNO ID: [id number] Author: BLANK ROSENBERG OD Service: ? Author Type: CARE CONSULTANT Type: Progress Notes Filed: 09/28/2023 12:10 Note Text: ASSESSMENT/PLAN: 1. Combined forms of age-related cataract of both eyes - ICD9: 366.19, ICD10: H25.813 (primary diagnosis) Dr Idania Moreno Cataract evaluation today 2. Macular drusen, left - ICD9: 362.57, ICD10: H35.362 Pt ed Monitor with Dr Cody for Progression toward macular Degeneration September 28, 2023 11:28 AM [facility] Evaluation note Diagnosis Combined forms of age-related cataract of both eyes- Primary Other and combined forms of senile cataract Macular drusen, left Combined forms of age-related cataract of both eyes Other and combined forms of senile cataract Combined forms of age-related cataract of both eyes Other and combined forms of senile cataract [facility] Diagnosis Pre-op evaluation- Primary Preoperative examination, unspecified Primary hypertension Unspecified essential hypertension Hyperlipidemia, unspecified hyperlipidemia type Gastro-esophageal reflux disease without esophagitis Esophageal reflux Combined forms of age-related cataract of both eyes Other and combined forms of senile cataract Combined forms of age-related cataract of both eyes Other and combined forms of senile cataract * Assessment & Plan Note - Samreen Ricks APRN.CNP - 12/07/2023 10:06 AM EDT Associated Problem(s): Gastro-esophageal reflux disease without esophagitis Assessment: Well controlled with PPI * Assessment & Plan Note - Samreen Ricks APRN.CNP - 12/07/2023 10:06 AM EDT Associated Problem(s): Hyperlipidemia, unspecified Assessment: Controlled with statin. Monitored per PCP. * Assessment & Plan Note - Samreen Ricks APRN.CNP - 12/07/2023 10:06 AM EDT Associated Problem(s): Primary hypertension Assessment: Stable and compliant with medications Followed by PCP Last 5 Encounter BP Readings: Date: BP: 12/07/2023 132/68 [facility] Diagnosis Combined forms of age-related cataract of both eyes Other and combined forms of senile cataract Combined forms of age-related cataract of both eyes Other and combined forms of senile cataract Combined forms of age-related cataract of both eyes Other and combined forms of senile cataract documented in this encounter [facility] Summary Purpose Family History No Family History Records FoundNo Family History Records FoundNo Family History Records Found Advance Directives No Advanced Directives Records FoundNo Advanced Directives Records FoundNo Advanced Directives Records Found Additional Source Comments INFORMATION SOURCE (unrecogn ized section and content) DATE CREATED AUTHOR 07/04/2022 Kishore Amato [facility] DATE CREATED AUTHOR AUTHOR'S ORGANIZ ATION 11/05/2022 [facility] DATE CREATED AUTHOR AUTHOR'S ORGANIZ ATION 01/04/2024 [facility] Source Comments (unrecognize d section and content) In the event this informatio n is protected by the Federal Confidentiality of Alcohol and Drug Abuse Patient Records regulations: The Federal rules restrict any use of the information to criminally investigate or prosecute any alcohol or drug abuse patient.[facility] the event this information is protected by the Federal Confidentiality of Alcohol and Drug Abuse Patient Records regulations: The Federal rules restrict any use of the information to criminally investigate or prosecute any alcohol or drug abuse patient.[facility] the event this information is protected by the Federal Confidentiality of Alcohol and Drug Abuse Patient Records regulations: The Federal rules restrict any use of the information to criminally investigate or prosecute any alcohol or drug abuse patient.[facility] Reason for Visit (unrecogniz ed section and content) Reason Comments Cataract Evaluation Reason Comments Pre-Op Visit Reason Comments Pre-Op Exam Care Teams (unrecognized sec tion and content) Hydrography Teacher Relationship Specialty Start Date End Date Zhao Trinidad MD PCP - General Family Medicine 07/14/15 Hydrography Teacher Relationship Specialty Start Date End Date Zhao Trinidad MD PCP - General Family Medicine 07/14/15 FOR RECORDS PERTAINING TO PATIENTS WHO ARE OR HAVE BEEN ENROLLED IN A CHEMICAL DEPENDENCY/SUBSTANCEABUSE PROGRAM, SOME INFORMATION MAY BE OMITTED. This clinical summary was aggregated from multiple sources. Caution should be exercised in using it in the provision of clinical care. This summary normalizes information from multiple sources, and as a consequence, information in this document may materially change the coding, format and clinical context of patient data. In addition, data may be omitted in some cases. CLINICAL DECISIONS SHOULD BE BASED ON THE PRIMARY CLINICAL RECORDS. [employer] [facility]. provides no warranty or guarantee of the accuracy or completeness of information in this document.
[2024-02-02 00:06] LABS: Age Gdln ACOG Testing Note (.); Pap IG (Image Guided) Note (.)
== END 2024-01-29 20:09 | disposition home or self-care (01) ==
LOC: LAB 20:08
PROVIDERS: PCP Family Medicine; Visit Provider Obstetrics & Gynecology
DX: Z01.419 Encounter for gynecological examination (general) (routine) without abnormal findings (principal)
CPT/HCPCS: 88175

== ENCOUNTER 2024-02-06 08:55 | Outpatient (OUT) | payer MEDICARE, OTHER, SELFPAY ==
--- NOTE | 2024-02-06 09:00 | MM_ITS ---
Patient Name: MELODIE WALLACE MR#: [id number] : 1955 Exam Date: 02/06/2024 Ordering Doctor: DR Jairo Aj . RADIOLOGY REPORT PROCEDURE: MM TOMOSYNTHESIS SCREENING BI COMPARISON: MG MAMM SCREEN 3D CARISSA CAD, 01/17/2022. MM TOMOSYNTHESIS SCREENING BI, 01/27/2023. INDICATIONS: Screening Calculator Name NCI Breast Cancer Risk Assessment Tool 5 Year Breast Cancer Risk 1.50% Lifetime Breast Cancer Risk 4.50% Personal Breast Cancer No Personal Ovarian Cancer No Treatments HYSTERECTOMY Family Cancers Grandfather-paternal with colon cancer at age 56. LOCATION: [facility] BREAST COMPOSITION: The breasts are almost entirely fatty. FINDINGS: DIAGNOSTIC CATEGORY 2--BENIGN FINDING. NO CHANGE FROM COMPARISON. Scattered benign-appearing calcifications are present. Scattered benign-appearing lymph nodes are present. RIGHT BREAST: No significant suspicious finding. LEFT BREAST: No significant suspicious finding. RECOMMENDATIONS: ROUTINE MAMMOGRAM AND CLINICAL EVALUATION IN 12 MONTHS. PLEASE NOTE: A NORMAL MAMMOGRAM DOES NOT EXCLUDE THE POSSIBILITY OF BREAST CANCER. A CLINICALLY SUSPICIOUS PALPABLE LUMP SHOULD BE BIOPSIED. Dictated by: Wilder Kerr MD on 02/06/2024 at 09:55 Approved by: Wilder Kerr MD on 02/06/2024 at 09:57
--- NOTE | 2024-02-06 09:00 | XR_ITS ---
The [address] [address] Patient Name: MELODIE WALLACE MRN: [id number] date: 1955 Sex: F Assigned Patient Location: [facility] Current Patient Location: [facility] Accession/Order Number: [id number] Exam Date: 02/06/2024 09:15 Report Date: 02/06/2024 09:34 At the request of: MESSI BEYER Procedure: XR DEXA axial skeleton EXAMINATION: XR DEXA axial skeleton, 02/06/2024 9:15 AM EDT HISTORY: Postmenopausal State COMPARISON: 2021, 2019, 2014, 2010. TECHNIQUE: Dual-energy X-ray absorptiometry (DEXA) bone density study performed for the axial skeleton. FINDINGS: Bone mineral density of the lumbar spine L1-L4 measures 1.156 g/sq cm. T score -0.2. Normal. Lowest bone mineral density left femoral trochanter measuring 0.64 g/sq cm. T score -2.0. WHO classification: Osteopenia XR/XR DEXA axial skeleton IMPRESSION: Osteopenia. Moderate fracture risk Pharmacologic treatment recommendations * No uniform recommendation applies to all patients. Management plans must be individualized. * Consider initiating pharmacologic treatment in postmenopausal women and men >= 50 years of age who have the following: Primary fracture prevention: * T-score <= - 2.5 at the femoral neck, total hip, lumbar spine, 33% radius (some uncertainty with existing data) by DXA. * Low bone mass (osteopenia: T-score between - 1.0 and - 2.5) at the femoral neck or total hip by DXA with a 10-year hip fracture risk >= 3% or a 10-year major osteoporosis-related fracture risk >= 20% (i.e., clinical vertebral, hip, forearm, or proximal humerus) based on the [place]-adapted FRAXregistered model. Secondary fracture prevention: * Fracture of the hip or vertebra regardless of BMD [4, 5]. * Fracture of proximal humerus, pelvis, or distal forearm in persons with low bone mass (osteopenia: T-score between - 1.0 and - 2.5). The decision to treat should be individualized in persons with a fracture of the proximal humerus, pelvis, or distal forearm who do not have osteopenia or low BMD [12, 13]. Adolfo MS, Cristian SL, Angel KL, Mukesh EM, Carl KG, AJ, Mickey ES. The clinician's guide to prevention and treatment of osteoporosis. Osteoporos Int. 2021;33(10):8404-9238. doi: 10.1007/y73506-439-47112-s. Epub 2021Nov 25. Erratum in: Osteoporos Int. 2021Feb 24;: PMID: [id number]; PMCID: [id number]. Electronically authenticated by: MARIANA MAHAJAN Date: 02/06/2024 09:34
== END 2024-02-06 08:56 | disposition home or self-care (01) ==
LOC: MAMMO 08:55
PROVIDERS: PCP Family Medicine; Visit Provider Obstetrics & Gynecology
DX: Z12.31 Encounter for screening mammogram for malignant neoplasm of breast (principal); Z78.0 Asymptomatic menopausal state; Z80.0 Family history of malignant neoplasm of digestive organs; M85.80 Other specified disorders of bone density and structure, unspecified site
CPT/HCPCS: 77063; 77067; 77080

== ENCOUNTER 2024-03-22 13:17 | Outpatient (RCR) | payer MEDICARE, OTHER, SELFPAY ==
[2024-03-22 13:24] LABS: Estimated GFR (African America >60 (>=60); Estimated GFR (Non-African Ame >60 (>=60)
[2024-03-22 13:27] VITALS: BP 144/84; PULSE 83; TEMP 36.9
[2024-03-22] MEDS: DENOSUMAB 60 MG/ML SYRINGE SUBQ (13:44)
--- NOTE | 2024-03-22 16:29 | PC.NURSE ---
1400 tolerated injection without any s/s of reation. educated and given hand out on calcium/vit d requirements as well as medication
== END 2024-03-30 23:59 | disposition home or self-care (01) ==
LOC: INF 13:17
PROVIDERS: PCP Family Medicine; Visit Provider Obstetrics & Gynecology
DX: M81.0 Age-related osteoporosis without current pathological fracture (principal); M85.80 Other specified disorders of bone density and structure, unspecified site; Z78.0 Asymptomatic menopausal state
CPT/HCPCS: 36415; 82310; 82565; 96372; J0897

== ENCOUNTER 2024-09-11 07:32 | Outpatient (RCR) | payer MEDICARE, OTHER, SELFPAY ==
[2024-09-11 10:36] VITALS: BP 144/86; PULSE 95; TEMP 36.6; O2SAT 98
[2024-09-11 10:42] LABS: Estimated GFR (African America >60 (>=60 mL/min/1.73m^2); Estimated GFR (Non-African Ame >60 (>=60 mL/min/1.73m^2)
[2024-09-11] MEDS: DENOSUMAB 60 MG/ML SYRINGE SUBQ (11:15)
== END 2024-09-27 23:59 | disposition home or self-care (01) ==
LOC: INF 07:32
PROVIDERS: PCP Family Medicine; Visit Provider Obstetrics & Gynecology
DX: M81.0 Age-related osteoporosis without current pathological fracture (principal)
CPT/HCPCS: 36415; 82310; 82565; 96372; J0897

== ENCOUNTER 2024-10-24 10:32 | Outpatient (OUT) | payer MEDICARE, OTHER, SELFPAY ==
--- OUTSIDE RECORDS SUMMARY | 2024-10-24 10:43 | XMS_ITS | CCD ---
Author Organization [facility] CliniSymn Care Team Providers Care Collections Officer Name Role Phone Kory JARRETT Attending Unavailable Vivi PROVIDERZhao Referring Unavailabl e HOY ., DR CHURCHILL Primary Care Unavailable HOY ., DR CHURCHILL Admitting Unavailable HOY ., DR CHURCHILL Attending Unavailable HOY ., DR CHURCHILL Primary Care Unavailable HOY ., DR CHURCHILL Admitting Unavailable HOY ., DR CHURCHILL Attending Unavailable HOY ., DR CHURCHILL Consulting Unavailable ZIEBER, DR CARLOS Clinton Consulting Unavailable JEAN MARIE ., DR SWENSON Admitting Unavailable HOY ., DR CHURCHILL Primary Care Unavailable JEAN MAREI ., DR SWENSON Consulting Unavailable JEAN MARIE ., DR SWENSON Attending Unavailable JEAN MARIE ., DR SWENSON Attending Unavailable HOY ., DR CHURCHILL Primary Care Unavailable JEAN MARIE ., DR SWENSON Consulting Unavailable JEAN MARIE ., DR SWENSON Admitting Unavailable ZIEBER, DR CARLOS Clinton Consulting Unavailable JEAN MARIE ., DR SWENSON Attending Unavailable JEAN MARIE ., DR SWENSON Consulting Unavailable JEAN MARIE ., DR SWENSON Admitting Unavailable HOY ., [...] Unavailable Zhao Trinidad MD Primary Care Provider [phone] Zhao Trinidad MD Primary Care Provider [phone] ZHAO TRINIDAD Primary Care Unavailable NICKI V, IDANIA Attending Unavailable NICKI V, IDANIA Referring Unavailable NICKI V, IDANIA Admitting Unavailable NICKI V, IDANIA Attending Unavailable SELF Referring Unavailable ZHAO TRINIDAD Primary Care Unavailable VIVI ZHAO White Primary Care Unavailable NICKI V, IDANIA Referring Unavailable VIVI ZHAO M Primary Care Unavailable NICKI V, IDANIA Referring Unavailable ZHAO TRINIDAD M Primary Care Unavailable NICKI V, IDANIA Referring Unavailable VIVI ZHAO White Primary Care Unavailable NICKI V, IDANIA Attending Unavailable NICKI V, IDANIA Referring Unavailable NICKI V, IDANIA Admitting Unavailable Zhao Trinidad MD Primary Care Provider [phone] MESSI AJ Attending Unavailable JUDY POST Attending Unavailable Allergies Allergy Classification Reported Allergen(s) Allergy Type Date of Onset Reaction(s) Facility (1 source) No Known Medication Allergies; Translations: [No Known Medication Allergies] Propensity to adverse reactions (disorder) [facility] Repository (3 sources) diphenhydrAMINE Drug Allergy 4 [facility] Healthcare (3 sources) moxifloxacin Drug Allergy 4 [facility] Medications Current Medications Medication Drug Class(es) Dates Sig (Normalized) Sig (Original) alendronic acid 70 mg oral tablet (7 sources) Bisphosphonate Start: 08-18-2023 take 1 tablet by mouth every week alendronate (FOSAMAX) 70 mg tablet Take 1 tablet by mouth one time a week. 0 08/18/2023 Active Comment on above: Take 1 tablet by luke th one time a week. Calcium (4 sources) Phosphate Binder, Calcium calcium 200 MG tablet Calcium Active 24 hr desvenlafaxine succinate 25 mg extended release oral tablet (7 sources) Serotonin and Norepinephrine Reuptake Inhibitor Start: 08-24-2023 take 1 tablet by mouth once desvenlafaxine ER (PRISTIQ) 25 mg 24 hr tablet Take 1 tablet by mouth every afternoon. 0 08/24/2023 Active Comment on above: Take 1 tablet by luke th every afternoon. diclofenac sodium 75 mg delayed release oral tablet (7 sources) Nonsteroidal Anti-inflammatory Drug Start: 09-19-2023 take 1 tablet by mouth every twelve hours diclofenac, EC, (VOLTAREN) 75 mg EC tablet Take 1 tablet by mouth every 12 hours. 0 09/19/2023 Active Comment on above: Take 1 tablet by luke th every 12 hours. ergocalciferol 0.2 mg/ml oral solution (4 sources) Provitamin D2 Compound take 100 ug by mouth in the morning ergocalciferol (Vitamin D-2) 200 MCG/ML drops Take 100 mcg by mouth in the morning. Active estradiol 0.1 mg/ml vaginal cream (7 sources) Estrogen estradiol (Estra ce) 0.1 MG/GM vaginal cream Insert 2 g into the vagina in the morning. Active Comment on above: Use 2 g vaginally. ezetimibe 10 mg oral tablet (6 sources) Dietary Cholesterol Absorption Inhibitor Start: 08-24-2023 take 1 tablet by mouth once ezetimibe (ZETIA) 10 mg tablet Take 1 tablet by mouth every afternoon. 0 08/24/2023 Active Comment on above: Take 1 tablet by luke th every afternoon. irbesartan 150 mg oral tablet (6 sources) Angiotensin 2 Receptor Dillan Start: 2023 irbesartan (AVAPRO) 150 mg tablet lisinopril 10 mg oral tablet (3 sources) Angiotensin Converting Enzyme Inhibitor Start: 09-11-2023 take 1 tablet by mouth once daily lisinopril 10 MG tablet Take 10 mg by mouth Daily 09/11/2023 Active montelukast 10 mg oral tablet (7 sources) Leukotriene Receptor Antagonist Start: 07-13-2023 take 1 tablet by mouth once montelukast (SINGULAIR) 10 mg tablet Take 1 tablet by mouth every afternoon. 0 07/13/2023 Active montelukast (Sin gulair) 4 MG chewable tablet Singulair Active Comment on above: Take 1 tablet by luke th every afternoon. MULTIPLE VITAMIN IV (4 sources) MULTIPLE VITAMIN IV Multiple Vitamin Active pantoprazole 40 mg delayed release oral tablet (10 sources) Proton Pump Inhibitor Start: 3 End: 4 take 1 tablet by mouth once pantoprazole DR (PROTONIX) 40 mg tablet Take 1 tablet by mouth every afternoon. 0 07/12/2023 Active Comment on above: Take 1 tablet by luke th every afternoon. simvastatin 20 mg oral tablet (7 sources) HMG-CoA Reductase Inhibitor Start: 4 take 1 tablet by mouth once simvastatin (ZOCOR) 20 mg tablet Take 1 tablet by mouth every afternoon. 0 08/24/2023 Active Simvastatin 20 M G/5ML suspension Simvastatin Active Comment on above: Take 1 tablet by luke th every afternoon. vitamin b12 0.1 mg oral tablet (7 sources) Vitamin B12 cyanocobalamin ( Vitamin B-12) 100 MCG tablet Vitamin B12 Active Comment on above: Vitamin B12 Problems [...] cytologic smear of vagina] Onset: 01-03-2022 Episodic Other skin disorders (2 sources) Seborrheic keratosis; Translations: [Other seborrheic keratosis] 05-20-2024 Episodic Other skin disorders (2 sources) Lentiginosis; Translations: [Other melanin hyperpigmentation] 05-20-2024 Episodic Other skin disorders (2 sources) Actinic keratosis; Translations: [Actinic keratosis] 05-20-2024 Episodic Residual codes; unclassified (1 source) Insomnia, [...] DEN STRUCT UNS SITE] Onset: 01-19-2022 Episodic Other non-epithelial cancer of skin (6 sources) History of malignant neoplasm of skin; Translations: [Personal history of other malignant neoplasm of skin] Onset: 01-11-2023 01-11-2023 Episodic Residual codes; unclassified (1 source) Asymptomatic menopausal state; Translations: [ASYMPTOMATIC MENOPAUSAL STATE] Onset: 01-19-2022 Episodic Residual codes; unclassified (1 source) Family history of malignant neoplasm of digestive organs; Translations: [FAM HX MALIG NEOPLASM DIGESTIV ORGN] Onset: 01-19-2022 Episodic Unclassified (1 source) COUGH, UNSPECIFIED; Translations: [COUGH, UNSPECIFIED] Onset: 02-14-2022 Results Test Name Value Interpretation Reference Range Facility Laboratory - Chemistry and C hemistry - challengeon 09-11-2024 Calcium [Mass/Vol] 10 mg/dL 8.5 - 10. 1 mg/dL [facility] Creatinine [Mass/Vol] 0.9 mg/dL 0.55 - 1.02 mg/dL [facility] GFR/1.73 sq M.predicted CKD-EPI (S/P/Bld) [Vol rate/Area] >60 >=60 mL/min/1.73m 2 [facility] No Panel Informationon 09-11 [facility] EGFR-NON AF EGYPTIAN >60 >=60 mL/min/1.73m 2 [facility] CLINISYNC [facility] No Panel Informationon 05-20 [facility] ANES POSTPROC EVALon 024 ANES POSTPROC EVAL HNO ID: [id number] Author: LARRY BANERJEE MD Service: Anesthesiology Author Type: Anesthesiologist Type: Anesthesia Postprocedure Evaluation Filed: 01/03/2024 12:50 Note Text: POST ANESTHESIA EVALUATION NOTE : 1955 Procedure Summary Date: 01/03/24 Room / Location: [address] Anesthesia Start: 1216 Anesthesia Stop: 1238 [...] January 03, 2024 TIME: 12:50 PM CSN: [id number] [facility] ANES PRE-OPon 01-03-2024 [facility] PRE-OP HNO ID: [id number] Author: LARRY BANERJEE MD Service: Anesthesiology Author Type: Anesthesiologist Type: Anesthesia Preprocedure Evaluation Filed: 01/03/2024 12:14 Note Text: ANESTHESIOLOGY DAY OF SURGERY NOTE : 1955 Procedure Information Date/Time: 01/03/24 1145 Procedures: PHACOEMULSIFICATION CATARACT IMPLANT INTRAOCULAR LENS W/O ENDOSCOPIC CYCLOPHOTOCOAGULATION (Right: Eye) OPHTHALMIC BIOMETRY BY PARTIAL COHERENCE INTERFEROMETRY W/INTRAOCULAR LENS POWER CALCULATION (Right: Eye) Location: [address] Surgeons: Idania Moreno V, MD Estimated [...] and consent discussed: yes. Patient / Responsible Libertarian agrees to proceed: yes Patient / Surrogate [...] tablet by mouth one time a week. [employer] ULTRA TEST test strip USE TO TEST [...] I h (more content not included)... [facility] OPERATIVE NOon 01-03-2024 OPERATIVE NO HNO ID: [id number] Author: IDANIA MORENO MD Service: Ophthalmology Author Type: Physician Type: Operative Report Filed: 01/03/2024 12:34 Note Text: OPERATIVE REPORT DATE OF SERVICE: January 03, 2024 PRIMARY SURGEON: Idania Moreno M.D. CONTROL AREA OPERATOR: None [Any nurse listed as assisting or [...] corneal incision was created temporally with a Catarina blade then a 2.4 mm keratome. The anterior chamber was reformed with Viscoat, after which the anterior capsule was opened centrally. Using the Utrata forceps a continuous curvilinear capsulorrhexis of approximately 5.5 mm round was created. Gentle hydrodissection was accomplished using preservative-free lidocaine on a 27-gauge cannula. Using the [employer] phacoemulsification unit with the [employer] curved tip, the anterior chamber was entered [...] Implant Name Type Inv. Item Serial No. Tree Trimming Line Technician Lot No. LRB No. Used Action Model No. CC60WF.255 [employer] - [id number] Intraocular Lens [id number] [facility] [facility] [id number] [employer] Right 1 Implanted [id number] [...] 12:33 PM - Comanage with Dr Cody; relinquish care POD #1 Idania MORENO MD [facility] ANES POSTPROC EVALon 024 ANES POSTPROC EVAL HNO ID: [id number] Author: SADIQ MELGAR II, DO Service: Anesthesiology Author Type: Anesthesiologist Type: Anesthesia Postprocedure Evaluation Filed: 12/20/2023 13:11 Note Text: POST ANESTHESIA EVALUATION NOTE : 1955 Procedure Summary Date: 12/20/23 Room / Location: [address] Anesthesia Start: 1116 Anesthesia Stop: 1136 Procedures: PHACOEMULSIFICATION CATARACT IMPLANT INTRAOCULAR LENS W/O [...] December 20, 2023 TIME: 1:11 PM CSN: [id number] [facility] ANES PRE-OPon 12-20-2023 ANES PRE-OP HNO ID: [id number] Author: SADIQ MELGAR II, DO Service: Anesthesiology Author Type: Anesthesiologist Type: Anesthesia Preprocedure Evaluation Filed: 12/20/2023 10:31 Note Text: ANESTHESIOLOGY DAY OF SURGERY NOTE : 1955 Procedure Information Date/Time: 12/20/23 1025 Procedures: PHACOEMULSIFICATION CATARACT IMPLANT INTRAOCULAR LENS W/O ENDOSCOPIC CYCLOPHOTOCOAGULATION (Left: Eye) OPHTHALMIC BIOMETRY BY PARTIAL COHERENCE INTERFEROMETRY W/INTRAOCULAR LENS POWER CALCULATION (Left: Eye) Location: [address] Surgeons: Idania Moreno V, MD Estimated [...] and consent discussed: yes. Patient / Responsible Libertarian agrees to proceed: yes Patient / Surrogate [...] Medications as of 12/20/2023 Medication Sig - ONETOUCH ULTRA TEST test strip USE TO [...] December 20, 2023 TIME: 10:28 AM CSN: [id number] [facility] NURSING PROGon 12-20-2023 NURSING PROG HNO ID: [id number] Author: ARIN VELASCO RN Service: ? Author [...] Arin Velasco RN In Department: AMBULATORY SURGERY [facility] OPERATIVE NOon 12-20-2023 OPERATIVE NO HNO ID: [id number] Author: IDANIA MORENO MD Service: Ophthalmology Author Type: Physician Type: Operative Report Filed: 12/20/2023 11:34 Note Text: OPERATIVE REPORT DATE OF SERVICE: December 20, 2023 PRIMARY SURGEON: Idania Moreno M.D. CONTROL AREA OPERATOR: None [Any nurse listed as assisting or [...] the Intraocular lens consignment, in accordance with [facility] intraocular lens verification policy. Nasal oxygen was [...] corneal incision was created temporally with a Catarina blade then a 2.4 mm keratome. The [...] Implant Name Type Inv. Item Serial No. Tree Trimming Line Technician Lot No. LRB No. Used Action Model No. CC60WF.250 [employer] - [id number] Intraocular Lens [id number] [employer] [facility] [id number] [employer] Left 1 Implanted [id number] was inserted [...] 11:32 AM - [facility] Dr Cody[facility]1 Idania MORENO MD [facility] HISTORY PHYSICALon HISTORY PHYSICAL HNO ID: [id number] Author: SAMREEN RICKS APRN.MATTRESS SPECIALIST Service: ? Author Type: Nurse Practitioner Type: [...] vaccine, age (more content not included)... [facility] IOL BIOMETRY W/ IOL CALC OU (BOTH EYES)on 12-07-2023 [facility] Study observation (narrative) [place] [facility] 07-11-2023 MEGGAN Telephone (OPHTLN) ANAMARIA CAREY ([id number]) 1955 F Date Time Provider Department 07/11/23 [...] Status:Closed by GABRIELLE SERNA on 07/12/23 [facility] INSULINon 10-19-2022 Insulin 10.3 uIU/mL Normal 2.6-24.9 [facility] Comment on above: Performed By: #### I NSULIN #### [facility] [address] [place] [address] Dr. Amalia Godinez CBC AUTO DIFFon 10-18-2022 BASO # 0.0 103/ul Normal 0.0-0.1 [facility] Comment on above: Performed By: #### C BC #### [facility] [address] [place] [address] Dr. Amalia Godinez Basophils/100 WBC (Bld) 0.5 % Normal 0.2-2.0 [facility] Comment on above: Performed By: #### C BC #### [facility] [address] [place] [address] Dr. Amalia Godinez EO # 0.1 103/ul Normal 0.0-0.7 [facility] Comment on above: Performed By: #### C BC #### [facility] [address] [place] [address] Dr. Amalia Godinez Eosinophils/100 WBC (Bld) 1.7 % Normal 0.9-7.0 [facility] Comment on above: Performed By: #### C BC #### [facility] [address] [place] [address] Dr. Amalia Godinez Erythrocyte distribution width (RBC) [Ratio] 12.7 % Normal 11.0-15.0 [facility] Comment on above: Performed By: #### C BC #### [facility] [address] [address] [address] Amalia Godinez Hematocrit (Bld) [Volume fraction] 39.7 % Normal 36.0-48.0 [facility] Comment on above: Performed By: #### C BC #### [facility] [address] [address] [address] Amalia Godinez Hemoglobin (Bld) [Mass/Vol] 13.1 g/dL Normal 12.0-16.0 [facility] Comment on above: Performed By: #### C BC #### [facility] [address] [address] [address] Amalia Godinez IG # 0.04 10e3/ul Critically high 0.00-0.03 [facility] Comment on above: Performed By: #### C BC #### [facility] [address] [address] [address] Amalia Godinez IG % 0.5 % Normal 0.0-0.5 [facility] Comment on above: Performed By: #### C BC #### [facility] [address] [address] [address] Amalia Godinez LYMPH # 2.3 103/ul Normal 1.2-3.8 [facility] Comment on above: Performed By: #### C BC #### [facility] [address] [address] [address] Amalia Godinez Lymphocytes/100 WBC (Bld) 31.1 % Normal 20.5-60.0 [facility] Comment on above: Performed By: #### C BC #### [facility] [address] [address] [address] Amalia Godinez MANUAL DIFF REQ NO Normal [facility] Comment on above: Performed By: #### C BC #### [facility] [address] [address] [address] Amalia Godinez MCH (RBC) [Entitic mass] 29.2 pg Normal 26.7-34.0 [facility] Comment on above: Performed By: #### C BC #### [facility] [address] [address] [address] Amalia Godinez MCHC (RBC) [Mass/Vol] 33.0 g/dL Normal 29.9-35.[address] [facility] Comment on above: Performed By: #### C BC #### [facility] [address] [address] [address] Amalia Godinez MCV (RBC) [Entitic vol] 88.6 fL Normal 81.0-99.[address] [facility] Comment on above: Performed By: #### C BC #### [facility] [address] [place] [address] Dr. Amalia Godinez MONO # 0.5 103/ul Normal 0.3-0.[address] [facility] Comment on above: Performed By: #### C BC #### [facility] [address] [place] [address] Dr. Amalia Godinez Monocytes/100 WBC (Bld) 6.0 % Normal 1.7-12.0 [facility] Comment on above: Performed By: #### C BC #### [facility] [address] [place] [address] Dr. Amalia Godinez NEUT # 4.5 103/ul Normal 1.4-6.5 [facility] Comment on above: Performed By: #### C BC #### [facility] [address] [place] [address] Dr. Amalia Godinez Neutrophils/100 WBC (Bld) 60.2 % Normal 43.0-75.[address] [facility] Comment on above: Performed By: #### C BC #### [facility] [address] [place] [address] Dr. Amalia Godinez Platelet mean volume (Bld) [Entitic vol] 10.3 fL Normal 9.5-13.[address] [facility] Comment on above: Performed By: #### C BC #### [facility] [address] [place] [address] Dr. Amalia Godinez PLT 242 103/ul Normal 150-[address] [facility] Comment on above: Performed By: #### C BC #### [facility] [address] [address] [address] Amalia Godinez RBC 4.48 106/ul Normal 4.20-5.40 [facility] Comment on above: Performed By: #### C BC #### [facility] [address] [place] [address] Dr. Amalia Godinez WBC 7.5 103/ul Normal 4.0-11.0 [facility] Comment on above: Performed By: #### C BC #### [facility] [address] [place] [address] Dr. Amalia Godinez FREE THYROXINE INDEX T7on FTI 2.59 Normal 1.30-4.50 [facility] Comment on above: Performed By: #### 4 [id number] #### [facility] [address] [place] [address] Dr. Amalia Godinez T3U 36.0 % Normal 30.0-39.0 [facility] Comment on above: Performed By: #### 4 [id number] #### [facility] [address] [place] [address] Dr. Amalia Godinez T4 [Mass/Vol] 7.20 ug/dL Normal 4.80-13.90 [facility] Comment on above: Performed By: #### 4 [id number] #### [facility] [address] [place] [address] Dr. Amalia Godinez GLYCOHEMOGLOBIN A1Con 2022 ADA RECOMMENDATION SEE BELOW Normal [facility] Comment on above: Result Comment: ADA RECOMMENDED LIMIT 4.0 - 6.0 ADA THERAPEUTIC TARGET < 7.0 ACTION SUGGESTED > 7.0 Performed By: #### A 1C #### [facility] [address] [place] [address] Dr. Amalia Godinez Glucose [Mass/Vol] 123 mg/dL Normal [facility] Comment on above: Performed By: #### A 1C #### [facility] [address] [place] [address] Dr. Amalia Godinez HbA1c (Bld) [Mass fraction] 5.9 % Normal 4.5-6.[address] [facility] Comment on above: Performed By: #### A 1C #### [facility] [address] [address] [address] Amalia Godinez IRONon 10-18-2022 Iron [Mass/Vol] 93.0 ug/dL Normal 50.0-170.0 [facility] Comment on above: Performed By: #### 4 [id number] #### [facility] [address] [address] [address] Amalia Godinez LIPID PROFILEon 10-18-2022 CHOL-HDL RATIO NORM SEE BELOW Normal [facility] Comment on above: Result Comment: 3.3 - 4.4 LOW RISK 4.4 - 7.1 AVERAGE RISK 7.1 - 11.0 MODERATE RISK >11.0 HIGH RISK Performed By: #### 4 [id number] #### [facility] [address] [place] [address] Dr. Amalia Godinez Cholesterol [Mass/Vol] 267 mg/dL Critically high <=200 [facility] Comment on above: Performed By: #### [id number] #### [facility] [address] [place] [address] Dr. Amalia Godinez Cholesterol in HDL [Mass/Vol] 62 mg/dL Critically high 40-60 [facility] Comment on above: Performed By: #### 4 [id number] #### [facility] [address] [place] [address] Dr. Amalia Godinez Cholesterol in LDL [Mass/Vol] 163.8 mg/dL Normal [facility] Comment on above: Performed By: #### 4 [id number] #### [facility] [address] [address] [address] Amalia Godinez Cholesterol.total/C holesterol in HDL [Mass ratio] 4.3 {ratio} Normal [facility] Comment on above: Performed By: #### 4 [id number] #### [facility] [address] [address] [address] mAalia Godinez HDL NORMAL > or = 60 mg/dl - LO W CARDIOVASCULAR RISK <40 mg/dl - HIGH CARDIOVASCULAR RISK Normal [facility] Comment on above: Performed By: #### 4 [id number] #### [facility] [address] [address] [address] Amalia Godinez LDL CALC NORMAL SEE BELOW Normal [facility] Comment on above: Result Comment: <100 mg/dl OPTIMAL 100 - 129 mg/dl NEAR OR ABOVE OPTIMAL 130 - 159 mg/dl BORDERLINE HIGH 160 - 189 mg/dl HIGH >190 mg/dl VERY HIGH Performed By: #### 4 [id number] #### [facility] [address] [address] [address] Amalia Godinez Triglyceride [Mass/Vol] 206 mg/dL Critically high <=150 [facility] Comment on above: Performed By: #### 4 [id number] #### [facility] [address] [address] [address] Amalia Godinez VLDL CALC 41.2 mg/dL Normal [facility] Comment on above: Performed By: #### 4 [id number] #### [facility] [address] [place] [address] Dr. Amalia Godinez PROF 14(COMP METB)on 023 Albumin [Mass/Vol] 4.1 g/dL Normal 3.4-5.0 [facility] Comment on above: Performed By: #### 4 [id number] #### [facility] [address] [address] [address] Amalia Godinez Albumin/Globulin [Mass ratio] 1.2 {ratio} Normal [facility] Comment on above: Performed By: #### 4 [id number] #### [facility] [address] [address] [address] Amalia Godinez ALP [Catalytic activity/Vol] 50 U/L Normal 46-[address] [facility] Comment on above: Performed By: #### 4 [id number] #### [facility] [address] [address] [address] Amalia Godinez ALT [Catalytic activity/Vol] 29 U/L Normal 14-59 [facility] Comment on above: Performed By: #### 4 [id number] #### [facility] [address] [address] [address] Amalia Godinez Anion gap [Moles/Vol] 12.9 mmol/L Normal [facility] Comment on above: Performed By: #### 4 [id number] #### [facility] [address] [address] [address] Amalia Godinez AST [Catalytic activity/Vol] 23 U/L Normal 15-37 [facility] Comment on above: Performed By: #### [id number] #### [facility] [address] [place] [address] Dr. Amalia Godinez Bilirubin [Mass/Vol] 0.5 mg/dL Normal 0.2-1.0 [facility] Comment on above: Performed By: #### 4 [id number] #### [facility] [address] [place] [address] Dr. Amalia Godinez Calcium [Mass/Vol] 9.5 mg/dL Normal 8.5-10.1 [facility] Comment on above: Performed By: #### 4 [id number] #### [facility] [address] [place] [address] Dr. Amalia Godinez Chloride [Moles/Vol] 103 mmol/L Normal 98-107 [facility] Comment on above: Performed By: #### 4 [id number] #### [facility] [address] [place] [address] Dr. Amalia Godinez CO2 [Moles/Vol] 27.3 mmol/L Normal 21.0-32.0 [facility] Comment on above: Performed By: #### 4 [id number] #### [facility] [address] [place] [address] Dr. Amalia Godinez Creatinine [Mass/Vol] 0.69 mg/dL Normal 0.55-1.02 [facility] Comment on above: Performed By: #### 4 [id number] #### [facility] [address] [place] [address] Dr. Amalia Godinez EGFR-AF EGYPTIAN >60 Normal >=60 [facility] Comment on above: Performed By: #### 4 [id number] #### [facility] [address] [place] [address] Dr. Amalia Godinez EGFR-NON AF EGYPTIAN >60 Normal >=60 [facility] Comment on above: Performed By: #### 4 [id number] #### [facility] [address] [address] [address] Amalia Godinez Globulin (S) [Mass/Vol] 3.3 g/dL Normal [facility] Comment on above: Performed By: #### 4 [id number] #### [facility] [address] [address] [address] Amalia Godinez Glucose [Mass/Vol] 132 mg/dL Critically high 74-106 [facility] Comment on above: Performed By: #### 4 [id number] #### [facility] [address] [address] [address] Amalia Godinez Potassium [Moles/Vol] 4.2 mmol/L Normal 3.5-5.1 [facility] Comment on above: Performed By: #### 4 [id number] #### [facility] [address] [place] [address] Dr. Amalia Godinez Protein [Mass/Vol] 7.4 g/dL Normal 6.4-8.2 [facility] Comment on above: Performed By: #### 4 [id number] #### [facility] [address] [address] [address] Amalia Godinez Sodium [Moles/Vol] 139 mmol/L Normal 136-145 [facility] Comment on above: Performed By: #### 4 [id number] #### [facility] [address] [address] [address] Amalia Godinez Urea nitrogen [Mass/Vol] 19.0 mg/dL Critically high 7.0-18.0 [facility] Comment on above: Performed By: #### 4 [id number] #### [facility] [address] [address] [address] Amalia Gdoinez Urea nitrogen/Creatinine [Mass ratio] 27.5 mg/mg Normal [facility] Comment on above: Performed By: #### 4 [id number] #### [facility] [address] [address] [address] Amalia Godinez TSHon 10-18-2022 TSH 1.507 uIU/mL Normal 0.358-3.740 [facility] Comment on above: Performed By: #### 4 [id number] #### [facility] [address] [place] [address] Dr. Amalia Godinez VITAMIN D 25 OHon 10-18-2022 VIT D 25-OH 79.9 ng/mL Normal [facility] Comment on above: Performed By: #### 4 [id number] #### [facility] [address] [place] [address] Dr. Amalia Godinez VIT D RANGES SEE BELOW Normal [facility] Comment on above: Result Comment: <20 ng/mL Vit D deficient 20 - <30 ng/mL Vit D insufficient 30 - 100 ng/mL Vit D sufficient >100 ng/mL Potential Toxicity Performed By: #### 4 [id number] #### [facility] [address] [place] [address] Dr. Amalia Godinez ECHOCARDIO M/2D COMPLETEon 1 09-20-2021 ECHOCARDIO M/2D COMPLETE Patient: ANAMARIA CAREY Exam Date: 07/20/2022 : 1955 Gender:F Ordering : DR ZHAO TRINIDAD . Admission #: [id number] Family : Order #: [id number] CLICK HERE TO VIEW EXAM ECHOCARDIOGRAM REPORT [...] Valdovinos M.D. on 07/21/2022 at 15:47 Normal [facility] NM STRESS/REST MULTIon 07-20 NM STRESS/REST MULTI Patient: ANAMARIA CAREY Exam Date: 07/20/2022 : 1955 Gender:F Ordering : DR ZHAO TRINIDAD . Admission #: [id number] Family : Order #: [id number] CLICK HERE TO VIEW EXAM RADIOLOGY REPORT [...] Fontanez M.D. on 07/20/2022 at 15:30 Normal [facility] Physician Referralon 022 Physician Referral [phone] [id number] D:127 Normal [facility] XR CHEST 2 Von 02-15-2022 [...] by: CARLOS FONTANEZ Date: 2022-02-15 16:02 Normal [facility] PAP ACOG PANEL 2: 30 to 65on 01-27-2022 . . Normal [facility] Comment on above: Performed By: #### 4 [id number] #### [facility] [address] [address] [address] Amalia Godinez Age Gdln ACOG Testing Comment Normal [facility] Comment on above: Result Comment: <21 or >65 or no age provided Performed By: #### 4 [id number] #### [facility] [address] [address] [address] Amalia Godinez DIAGNOSIS: Comment Normal [facility] Comment on above: Result Comment: NEGA TIVE FOR INTRAEPITHELIAL LESION OR MALIGNANCY. CELLULAR CHANGES ASSOCIATED WITH ATROPHY ARE PRESENT. Performed By: #### 4 [id number] #### [facility] [address] [address] [address] Amalia Godinez Methodology: Comment Normal [facility] Comment on above: Result Comment: This liquid based ThinPrep(R) pap test was screened with the use of an image guided system. Performed By: #### 4 [id number] #### [facility] [address] [address] [address] Amalia Godinez Note: Comment Normal [facility] Comment on above: Result Comment: The Pap smear is a screening test designed to aid in the detection of premalignant and malignant conditions of the uterine cervix. It is not a diagnostic procedure and should not be used as the sole means of detecting cervical cancer. Both false-positive and false-negative reports do occur. . Performed By: #### 4 [id number] #### [facility] [address] [address] [address] Amalia Godinez Performed by: Comment Normal [facility] Comment on above: Result Comment: Katherine Del Rio, Seat Trimmer (ASCP) Performed By: #### 4 [id number] #### [facility] [address] [place] [address] Dr. Amalia Godinez Specimen adequacy: Comment Normal [facility] Comment on above: Result Comment: Sati sfactory for evaluation. Endocervical component may not be distinguished in cases of atrophy. Performed By: #### 4 [id number] #### [facility] [address] [place] [address] Dr. Amalia Godinez MG MAMM SCREEN 3D CARISSA CADon 01-17-2022 MG MAMM SCREEN 3D CARISSA CAD Patient: ANAMARIA CAREY Exam Date: 01/17/2022 : 1955 Gender:F Ordering : DR MESSI AJ . Admission #: [id number] Family : Order #: [id number] CLICK HERE TO VIEW EXAM RADIOLOGY REPORT [...] colon cancer at age 54. LOCATION: [facility] BREAST COMPOSITION: Almost entirely fatty. FINDINGS: DIAGNOSTIC [...] Fontanez M.D. on 01/17/2022 at 14:04 Normal [facility] XR DEXA BONE DENSITYon 01-17 XR DEXA BONE DENSITY EXAMINATION: XR DEXA BONE DENSITY, 01/17/2022 1:00 PM EDT HISTORY: [...] authenticated by: CARLOS FONTANEZ Date: 2022-01-17 16:45 [facility] PAP ACOG PANEL 2: 30 to 65on 01-06-2022 . . Normal [facility] Comment on above: Performed By: #### 4 [id number] #### [facility] [address] [place] [address] Dr. Amalia Godinez Age Gdln ACOG Testing Comment Normal [facility] Comment on above: Result Comment: <21 or >65 or no age provided Performed By: #### 4 [id number] #### [facility] [address] [place] [address] Dr. Amalia Godinez DIAGNOSIS: Comment [facility] Comment on above: Result Comment: UNSA TISFACTORY FOR EVALUATION. Performed By: #### 4 [id number] #### [facility] [address] [place] [address] Dr. Amalia Godinez Methodology: Comment Normal [facility] Comment on above: Result Comment: This liquid based ThinPrep(R) pap test was screened with the use of an image guided system. Performed By: #### 4 [id number] #### [facility] [address] [place] [address] Dr. Amalia Godinez Note: Comment Normal [facility] Comment on above: Result Comment: The Pap smear is a screening test designed to aid in the detection of premalignant and malignant conditions of the uterine cervix. It is not a diagnostic procedure and should not be used as the sole means of detecting cervical cancer. Both false-positive and false-negative reports do occur. . Performed By: #### 4 [id number] #### [facility] [address] [place] [address] Dr. Amalia Godinez Performed by: Comment Normal [facility] Comment on above: Result Comment: Elana Brink, Seat Trimmer Performed By: #### 4 [id number] #### [facility] [address] [place] [address] Dr. Amalia Godinez QC reviewed by: Comment Normal [facility] Comment on above: Result Comment: Maribell Ferreira, Supervisory Seat Trimmer (ASCP) Performed By: #### 4 [id number] #### [facility] [address] [place] [address] Dr. Amalia Godinez Recommendation: Comment Normal [facility] Comment on above: Result Comment: Sugg est follow up as clinically appropriate. Performed By: #### 4 [id number] #### [facility] [address] [place] [address] Dr. Amalia Godinez Specimen adequacy: Comment Normal [facility] Comment on above: Result Comment: Spec imen processed and examined, but unsatisfactory for evaluation of epithelial abnormality because of excessive lubricant. Performed By: #### 4 [id number] #### [facility] [address] [place] [address] Dr. Amalia Godinez Vital Signs Date Time Vital Sign Value Performing Clinician Faci lity 12-07-2023 10:00-0400 Body height 170.2 cm Pacc 1 Work Phone: [place] 12-07-2023 10:00-0400 Body mass index (BMI) [Ratio] 26.76 kg/m2 Pacc 1 Work Phone: [place] 12-07-2023 10:00-0400 Body temperature 97.7 [degF] Pacc 1 Work Phone: [place] 12-07-2023 10:00-0400 Body weight 77.5 kg Pacc 1 Work Phone: [place] 12-07-2023 10:00-0400 Diastolic blood pressure 68 mm[Hg] Pacc 1 Work Phone: [place] 12-07-2023 10:00-0400 Heart rate 75 /min Pacc 1 Work Phone: [place] 12-07-2023 10:00-0400 Respiratory rate 16 /min Pacc 1 Work Phone: [place] 12-07-2023 10:00-0400 SaO2% (BldA) [Mass fraction] 98 % Pacc 1 Work Phone: [place] 12-07-2023 10:00-0400 Systolic blood pressure 132 mm[Hg] Pacc 1 Work Phone: [place] Encounters Encounter Date Encounter Type Care Provider Facility Start: 09-11-2024 End: 09-11-2024 Clinisync Result Encounter Messi Jean Marie DO Work Phone: [facility] Unsolicited Start: 09-11-2024 End: 09-11-2024 Clinisync Result Encounter Messi Jean Marie DO Work Phone: [facility] Unsolicited Start: 05-20-2024 End: 05-20-2024 Abbie Post MD Work Phone: [facility] Start: 05-20-2024 End: 05-20-2024 bAbie Post MD Work Phone: [facility] Start: 05-20-2024 End: 05-20-2024 Office outpatient visit 15 minutes Judy Post MD Work Phone: [facility] Comment on above: Seborrheic keratosis (Primary Dx); History of SCC (squamous cell carcinoma) of skin; Lentigines; Actinic keratosis Start: 05-20-2024 End: 05-20-2024 ambulatory JUDY POST Not Available Start: 01-29-2024 End: 01-29-2024 ambulatory MESSI AJ Not Available Start: 01-03-2024 End: 01-03-2024 ambulatory ZHAO TRINIDAD Facility:[facility] Start: 12-20-2023 End: 12-20-2023 ambulatory ZHAO White Terese Facility:[facility] Start: 12-07-2023 End: 12-07-2023 Patient encounter procedure Eye Measurements Work Phone: Ophthalmology Comment on above: Combined forms of ag e-related cataract of both eyes Start: 12-07-2023 End: 12-07-2023 Admission to establishment Pacc Blakeslee 1 Work Phone: Pre Anesthesia Start: 12-07-2023 End: 12-07-2023 ambulatory ZHAO TRINIDAD Facility:[facility] Start: 12-07-2023 End: 12-07-2023 Anesthesia consultation Pacc Blakeslee 1 Work Phone: Pre Anesthesia Comment on above: Pre-op evaluation (P rimary Dx); Primary hypertension; Hyperlipidemia, unspecified hyperlipidemia type; Gastro-esophageal reflux disease without esophagitis Start: 12-07-2023 End: 12-07-2023 Preprocedural examination done Pacc Blakeslee 1 Work Phone: [place] Work Phone: Start: 11-29-2023 End: 11-29-2023 ambulatory ZHAOTAMIA TRINIDAD Facility:[facility] Start: 09-28-2023 End: 09-28-2023 ambulatory IDANIA MORENO V Facility:[facility] Start: 09-28-2023 End: 09-28-2023 Patient encounter procedure Idania Moreno MD Work Phone: Ophthalmology Comment on above: Combined forms of ag e-related cataract of both eyes (Primary Dx); Macular drusen, left Start: 12-29-[address] ZHAO TRINIDAD . Facili ty:[facility] Start: 10-18-2022 End: 10-19-[address] ZHAO TRINIDAD . Facility: Start: 07-20-2022 End: 07-21-[address] ZHAO TRINIDAD . Facility:[facility] Start: 07-04-2022 ambulatory Kory JARRTET Facility : [facility] Start: 02-14-2022 End: 02-15-[address] ZHAO TRINIDAD . Facility: Start: 01-24-2022 End: 01-24-[address] MESSI AJ . Facility:[facility] Start: 01-17-2022 End: 01-18-[address] MESSI AJ . Facility: Start: 01-03-2022 End: 01-03-[address] MESSI AJ . Facility: Procedures Date Procedure Procedure Detail Performing Clinician Start: 09-11-2024 [facility] CALCIUM Messi Fazi o DO Work Phone: Start: 09-11-2024 [facility] CREATININE Messi Sky zio DO Work Phone: Start: 05-20-2024 CRYOTHERAPY SKIN LESION Judy Post MD Work Phone: Start: 02-06-2024 Mammography Judy oden MD Work Phone: Start: 12-07-2023 IOL BIOMETRY W/ IOL CALC OU (BOTH EYES) Idania Moreno MD Work Phone: Plan of Treatment Date Care Activity Detail Author Start: 06-04-2025 End: 06-04-2025 Patient encounter procedure 06/04/2025 10:45 AM EST Office Visit [facility] [address] [place] [address] Judy Post MD [address] [place] [address] [facility] Start: 02-05-2025 Screening for malignant neoplasm of breast Mammogram [facility] Start: 01-29-2025 End: 01-29-2025 Patient encounter procedure 01/29/2025 1:00 PM EDT Office Visit [facility] [address] [id number] Messi Aj, [address] [place] [address] [facility] Start: 09-27-2024 End: 03-21-2025 IOL BIOMETRY W/ IOL CALC OU (BOTH EYES) IOL BIOMETRY W/ IOL CALC OU (BOTH EYES) [facility] Imaging Routine Combined forms of age-related cataract of both eyes Expected: 09/27/2024, Expires: 03/21/2025 [facility] Work Phone: Comment on above: Expected: 09/27/2024, Expires: Start: 05-20-2024 End: 05-20-2024 Patient encounter procedure 05/20/2024 11:15 AM EDT Office Visit [facility] [address] [place] [id number] Judy Post MD [address] [place] [address] Arrived [facility] Comment on above: Arrived Start: 03-31-2024 Influenza vaccination Influenza Vaccine (#1) [facility] Start: 01-12-2024 End: 01-12-2024 Patient encounter procedure 01/12/2024 1:45 PM EDT Office Visit [facility] [address] [place] [address] Blank Rosenberg, OD [address] [facility] [address] 1 WEEK POSTOP CATARACT SURGERY LEFT THEN RIGHT NICKI DR CODY OUT OF THE OFFICE Ophthalmology Comment on above: 1 WEEK POSTOP CATARACT SURGERY LEFT THEN RIGHT NICKI DR CODY OUT OF THE OFFICE Start: 01-03-2024 End: 01-03-2024 Admission to same day surgery center 01/03/2024 8:50 AM EDT - 01/03/2024 9:20 AM EDT Surgery Ambulatory Surgery [address] [place] [address] Idania Moreno V, MD [address] [place] [address] PHACOEMULSIFICATION CATARACT IMPLANT INTRAOCULAR LENS W/O ENDOSCOPIC CYCLOPHOTOCOAGULATION Ambulatory Surgery Comment on above: PHACOEMULSIFICATION CATARACT IMPLANT INT RAOCULAR LENS W/O ENDOSCOPIC CYCLOPHOTOCOAGULATION Start: 01-03-2024 End: 01-03-2024 Oph bmtry prtl coher intrfrmtry io lens pwr karen OPHTHALMIC BIOMETRY BY PARTIAL COHERENCE INTERFEROMETRY W/INTRAOCULAR LENS POWER CALCULATION Combined forms of age-related cataract of both eyes 01/03/2024 8:50 AM EDT [facility] Start: 01-03-2024 Subsequent hospital visit by physician 01/03/2024 8:50 AM EDT Hospital Encounter Ambulatory Surgery [address] [place] [address] Idania Moreno V, MD [address] [place] [address] Combined forms of age-related cataract of both eyes [H25.813] Ambulatory Surgery Comment on above: Combined forms of age-related cataract o f both eyes [H25.813] Start: 01-03-2024 End: 01-03-2024 Xcapsl ctrc rmvl insj io lens prosth w/o ecp PHACOEMULSIFICATION CATARACT IMPLANT INTRAOCULAR LENS W/O ENDOSCOPIC CYCLOPHOTOCOAGULATION Combined forms of age-related cataract of both eyes 01/03/2024 8:50 AM EDT [facility] Start: 12-20-2023 End: 12-20-2023 Admission to same day surgery center 12/20/2023 10:00 AM EDT - 12/20/2023 10:30 AM EDT Surgery Ambulatory Surgery [address] [place] [address] Idaina Moreno V, MD [address] [place] [address] PHACOEMULSIFICATION CATARACT IMPLANT INTRAOCULAR LENS W/O ENDOSCOPIC CYCLOPHOTOCOAGULATION Ambulatory Surgery Comment on above: PHACOEMULSIFICATION CATARACT IMPLANT INT RAOCULAR LENS W/O ENDOSCOPIC CYCLOPHOTOCOAGULATION Start: 12-20-2023 End: 12-20-2023 Oph bmtry prtl coher intrfrmtry io lens pwr karen OPHTHALMIC BIOMETRY BY PARTIAL COHERENCE INTERFEROMETRY W/INTRAOCULAR LENS POWER CALCULATION Combined forms of age-related cataract of both eyes 12/20/2023 10:00 AM EDT [facility] Start: 12-20-2023 Subsequent hospital visit by physician 12/20/2023 10:00 AM EDT Hospital Encounter Ambulatory Surgery [address] [place] [address] Idania Moreno V, MD [address] [place] [address] Combined forms of age-related cataract of both eyes [H25.813] Ambulatory Surgery Comment on above: Combined forms of age-related cataract o f both eyes [H25.813] Start: 12-20-2023 End: 12-20-2023 Xcapsl ctrc rmvl insj io lens prosth w/o ecp PHACOEMULSIFICATION CATARACT IMPLANT INTRAOCULAR LENS W/O ENDOSCOPIC CYCLOPHOTOCOAGULATION Combined forms of age-related cataract of both eyes 12/20/2023 10:00 AM EDT [facility] Start: 11-03-2023 Covid-19 Vaccine () Covid-19 Vaccine () [place] Start: 07-31-2023 Advance Directive Discussion Advance Directive Discussion [place] Start: 07-31-2023 Behavioral Health Screening Behavioral Health Screening [facility] Start: 07-31-2023 Depression Assessment Depression Assessment [place] Start: 2018 Screening for osteoporosis Bone Density Screening [place] Start: 2013 RSV Vaccine (1 - 1-dose 60+ series) RSV Vaccine (1 - 1-dose 60+ series) [place] Start: 1998 Diabetes Screening Diabetes Screening [place] Start: 1998 Lipid panel Lipid Screening [facility] Start: 1998 Screening for malignant neoplasm of colon [facility] Start: 1993 Screening for malignant neoplasm of breast Mammogram Screening [place] Start: 1972 Urine microalbumin profile DTaP,Tdap,Td Vaccine (1 - Tdap) [facility] Start: 1971 Annual PCP Team Chronic Disease Visit Annual PCP Team Chronic Disease Visit [place] Start: 1971 BP Controlled (<130/80) BP Controlled (<130/80) [facility] Start: 1971 Hepatitis C screening Hepatitis C Screening [place] Start: 1953 Screening for malignant neoplasm of colon [facility] CORNEAL TOPOGRAPHY A TLAS OU (BOTH EYES) CORNEAL TOPOGRAPHY ATLAS OU (BOTH EYES) [facility] Imaging Routine Combined forms of age-related cataract of both eyes 12/07/2023 11:17 AM EDT [facility] Work Phone: End: 02-28-2025 CORNEAL TOPOGRAPHY PENTACAM OU (BOTH EYES) CORNEAL TOPOGRAPHY PENTACAM OU (BOTH EYES) [facility] Imaging Routine Combined forms of age-related cataract of both eyes 1 Occurrences starting 09/07/2023 until 02/28/2025 [facility] Work Phone: Comment on above: 1 Occurrences starting 09/07/2023 until 02/28/2025 End: 02-28-2025 OCT MACULA CIRRUS OU (BOTH EYES) OCT MACULA CIRRUS OU (BOTH EYES) [facility] Imaging Routine Combined forms of age-related cataract of both eyes 1 Occurrences starting 09/07/2023 until 02/28/2025 [facility] Work Phone: Comment on above: 1 Occurrences starting 09/07/2023 until 02/28/2025 OCT MACULA CIRRUS OU (BOTH EYES) OCT MACULA CIRRUS OU (BOTH EYES) [facility] Imaging Routine Combined forms of age-related cataract of both eyes 09/28/2023 10:45 AM EST [facility] Work Phone: [facility] [place] Immunizations Immunization Date Immunization Notes Care Provider Fa cility 06-21-2023 influenza virus vacc ine, unspecified formulation Judy Post MD Work Phone: [facility] Payers Date Payer Category Payer Private Health Insurance [employer] [id number] 2021 Unknown MMO MMO MEDICARE SUPPLEMENT [id number] 2021-Present [phone] [address] [place] [address] Indemnity [id number] 2018 Medicare [id number] 1959 Medicare [id number] 1959 Self-pay [id number] 1959 Unknown [id number] 1955 Unknown [id number]. 727 1955 Unknown [id number] [id number]. 593 1955 Unknown [id number] [id number]. 593 1955 Unknown [id number] [id number]. 593 1953 Unknown [id number] [id number]. 593 1953 Unknown [id number] 2.16.840.1.579515.3.579.2. 593 1953 Unknown [id number] 2.16.840.1.842637.3.579.2. 593 1953 Unknown [id number] [id number]. 593 1953 Unknown [id number] [id number]. 1259 1955 Unknown [id number] [id number]. 1259 Social History Date Type Detail Facility Start: 05-18-2023 End: 09-28-2023 Tobacco smoking status NHIS Ex-smoker [place] Work Phone: History of tobacco use Current smoker [facility] Work Phone: History of tobacco use Cigarette Smoker [facility] Work Phone: Start: 09-28-2023 End: 05-20-2024 Cigarettes smoked current (pack per day) - Reported 1 [place] Start: 05-18-2023 End: 09-28-2023 Tobacco use and exposure Smokeless tobacco non-user [facility] Work Phone: Start: 09-28-2023 End: 05-20-2024 Area Deprivation Index [facility] Start: 01-10-2023 National Score (1-10 0), lower number is lower risk 63 [place] Start: 1955 Sex Assigned At Not on file C [facility] Start: 12-07-2023 End: 05-20-2024 Alcohol intake Current drinker of alcohol (finding) [place] Start: 12-07-2023 Alcohol Comment wine daily [facility] Start: 1955 Sex assigned at Female [facility] Start: 01-10-2023 Gender identity Identifies as female gender (finding) [facility] Medical Equipment Procedure Code Equipment Code Equipment Origin al Text Equipment Identifier Dates [id number] Start: 08-10-2023 Comment on above: USE TO TEST BLOOD BEARD GAR DAILY DX: E11.9 Clinical Notes 09-28-2023 to 05-20-2024 Judy Post MD - 05/20/2024 11:15 AM Stephane Dos Santos, JOSELITO - 12/07/2023 11:13 AM EDTPatient Samreen Brunner APRN.MATTRESS SPECIALIST - 12/07/2023 10:01 AM EDT Note Date & Type Note Facility 05-20-2024 History of Present illness Narrative Skin Check Location: Patient requests a full body skin examination Dermatologic history: history of Actinic Keratosis, history of Squamous Cell Carcinoma Last visit: 1 year ago Established patient All pertinent medical history, medications, and allergies were reviewed. General Exam: alert, oriented to person, place, and time, normal affect, well appearing Unaccompanied Scalp, Examined , exam limited by hair Right leg Examined Head, Face Examined Left leg Examined Neck Examined Right foot Examined Chest Examined Left foot Examined Back Examined Buttocks Examined Abdomen Examined Digits,nails: Examined Right arm Examined Patient wearing nail georgian, Denies dark streaks under finger nails, Denies dark streaks on toenails Left arm Examined Lymphatics: Not examined Hands Examined 1. Seborrheic keratosis Right Arm Stuck on verrucous, major-brown papules and plaques. Patient was counseled regarding these benign growths. Removal is normally not necessary, but they may be removed if they are symptomatic or for cosmetic reasons. 2. History of SCC (squamous cell carcinoma) of skin Left Chest No evidence of recurrence at SCC scar. The patient was counseled that scars from excisional sites of nonmelanoma skin cancers should be monitored closely for recurrence. The patient was instructed to contact the office for any new, changing, or symptomatic moles. The patient was also instructed to contact the office for any new lesions that develop within or around the previous surgery scar. 3. Lentigines Scattered major macules in sun-exposed areas. The patient was informed that lentigines are benign pigmented lesions that occur on sun-exposed and sun-damaged skin. No treatment is necessary. Recommended regular use of broad spectrum sunscreen SPF 30 or higher 4. Actinic keratosis (15) Left Breast, Left Proximal 2nd Finger, Left Supraorbital Region, Left Wrist - Posterior, Left Zygomatic Area, Mid Forehead, Philtrum, Right Breast, Right Buccal Cheek, Right Dorsal Hand, Right Eyebrow, Right Malar Cheek, Right Proximal 2nd Finger, Right Proximal Thumb, Right Voodoo Erythematous scaly papules Patient was counseled regarding these sun-induced growths that can develop into squamous cell carcinoma if left untreated. Discussed treatment with cryotherapy. It was emphasized that any treated lesions that fail to resolve should be re-evaluated. Cryotherapy performed today; see procedure note Diagnosis: Actinic keratosis Indication: Precancerous Location: see skin exam Consent: Verbal consent was obtained and risks were discussed, including, but not limited to risks of scarring, darker or painter helper sign pigmentary changes, recurrence, incomplete removal and infection. Method: Liquid nitrogen was used to treat the lesion(s) with two 5-10 second freeze-thaw cycles. Number of lesions treated: 15 Post-procedure instructions: Instructions were given orally and in writing. The office will be contacted if the lesion fails to resolve despite treatment, or if a side effect develops such as abnormal crusting, scabbing, redness or tenderness Cryotherapy, skin lesion - Left Breast, Left Proximal 2nd Finger, Left Supraorbital Region, Left Wrist - Posterior, Left Zygomatic Area, Mid Forehead, Philtrum, Right Breast, Right Buccal Cheek, Right Dorsal Hand, Right Eyebrow, Right Malar Cheek, Right Proximal 2nd Finger, Right Proximal Thumb, Right Voodoo Next Visit: 1 year documented in this encounter [facility] 01-03-2024 Note HNO ID: [id number] Author: MARIE GASCA RN Service: ? Author Type: Registered Nurse Type: Nursing Progress Note Filed: 01/03/2024 12:51 Note Text: Pt discharged to home in stable condition. Cont to deny any complaints. [facility] 12-07-2023 Note Date of Procedure 12/07/2023. Stuffed Casing Tier Information JOSELITO Chino . Notes Measurements only - see Procedure Record under Scanned Documents for signed results. [facility] 12-07-2023 Note HNO ID: [id number] Author: STEPHANE NIELSEN COA Service: ? Author Type: Stuffed Casing Tier Type: Progress Notes Filed: 12/07/2023 11:17 Note Text: CONFIRM AIM PLANO BOTH EYES. PATIENT AWARE THAT SHE WILL NEED GLASSES FOR NEAR AND INTERMEDIATE. JOSELITO Chino [facility] 12-07-2023 History of Present illness Narrative CONFIRM AIM PLANO BOTH EYES. PATIENT AWARE THAT SHE WILL NEED GLASSES FOR NEAR AND INTERMEDIATE. JOSELITO Chino documented in this encounter [place] 12-07-2023 Instructions Samreen Ricks APRN.MATTRESS SPECIALIST - 12/07/2023 10:05 AM EDT PATIENT PREOPERATIVE INSTRUCTIONS Idania Moreno V, MD has scheduled you for your procedure at this surgery center: [facility]: [phone] --[address] [address]. Please read below carefully for your personalized [...] Procedures: - YOU MUST HAVE A RESPONSIBLE TECHNOLOGY COACH TAKE YOU HOME. A DATA MINER OR AERONAUTICS TEACHER CANNOT BE MADE A RESPONSIBLE TECHNOLOGY COACH. - We recommend that a responsible person stays with you overnight to take care of you. - You cannot stay in a hotel alone after outpatient surgery. You will not be permitted to have your surgery, if you do not have someone to take care of you. If you already have an Advance Directive, please fax a copy to [phone] or email to for it to be [...] Samreen Ricks APRN.IVORY documented in this encounter [place] 12-07-2023 History and physical note HISTORY AND [...] mouth one time a week. Taking Yes [employer] ULTRA TEST test strip USE TO TEST [...] COVID-19 original vaccine, age 12+ yr, monovalent ([employer] - PURPLE TOP) 09/30/2020 Imm Admin: COVID-19 original vaccine, age 12+ yr, monovalent ([employer] - [facility]) 09/09/2020 Imm Admin: COVID-19 original vaccine, age 12+ yr, monovalent ([employer] - [facility]) Only the first 5 history entries have been loaded, but more history exists. REVIEW OF SYSTEMS: PAIN ASSESSMENT: General: No weight loss, malaise or fevers. Neuro: No history of TIA's, stroke, WAN SUPPORT SPECIALIST tumor, impaired sensorium, hemiplegia, paraplegia or quadraplegia. No neurological symptoms or problems. Respiratory: No history of current cough or dyspnea, or pneumonia in the past 6 weeks. No history of respiratory/pulmonary symptoms or problems. Cardiovascular: Negative for Recent CA, Angina, Arrhythmia, CAD, Chest Pain, CHF, PVD, [...] voices comprehension and compliance. SIGNATURE: Samreen Ricks APRN.CNP PATIENT NAME: Anamaria Carey DATE: 12/07/2023 TIME: 10:04 AM [place] 12-07-2023 History and physical note HISTORY AND [...] mouth one time a week. Taking Yes [employer] ULTRA TEST test strip USE TO TEST [...] Admin: COVID-19 vaccine, age 12+ yr, season ([employer]) 06/21/2022 Imm Admin: COVID-19 vaccine, age 12+ [...] fevers. Neuro: No history of TIA's, stroke, WAN SUPPORT SPECIALIST tumor, impaired sensorium, hemiplegia, paraplegia or quadraplegia. No neurological symptoms or problems. Respiratory: No history of current cough or dyspnea, or pneumonia in the past 6 weeks. No history of respiratory/pulmonary symptoms or problems. Cardiovascular: Negative for Recent CA, Angina, Arrhythmia, CAD, Chest Pain, CHF, PVD, [...] voices comprehension and compliance. SIGNATURE: Samreen Ricks APRN.CNP PATIENT NAME: Anamaria Carey DATE: 12/07/2023 TIME: 10:04 AM documented in this encounter [place] 09-28-2023 Miscellaneous Notes Addended by: MELINA MENDOZA on: 09/28/2023 12:25 PM Modules accepted: Orders documented in this encounter [place] 09-28-2023 Note HNO ID: [id number] Author: IDANIA MORENO MD Service: ? Author [...] and surgery - Comanage with Dr Cody; [facility] POD #1 Cataract Presurgical Documentation Cataract: Both [...] patient was offered a surgery/procedure at a [facility] facility. The surgeon/proceduralist and patient have discussed [...] MORENO MD September 28, 2023 11:58 AM [facility] 09-28-2023 History of Present illness Narrative The [...] and surgery - Comanage with Dr Cody; [facility] POD #1 Cataract Presurgical Documentation Cataract: Both [...] patient was offered a surgery/procedure at a [place] facility. The surgeon/proceduralist and patient have discussed [...] 2023 11:28 AM documented in this encounter [place] 09-28-2023 Note HNO ID: [id number] Author: BLANK ROSENBERG OD Service: ? Author Type: SOCIAL SERVICE DIRECTOR Type: Progress Notes Filed: 09/28/2023 12:10 Note Text: ASSESSMENT/PLAN: 1. Combined forms of age-related cataract of both eyes - ICD9: 366.19, ICD10: H25.813 (primary diagnosis) Dr Idania Moreno Cataract evaluation today 2. Macular drusen, left - ICD9: 362.57, ICD10: H35.362 Pt ed Monitor with Dr Cody for Progression toward macular Degeneration September 28, 2023 11:28 AM [facility] Evaluation note Diagnosis Combined forms of age-related cataract of both eyes- Primary Other and combined forms of senile cataract Macular drusen, left Combined forms of age-related cataract of both eyes Other and combined forms of senile cataract Combined forms of age-related cataract of both eyes Other and combined forms of senile cataract [place] encounter [place] [place]* Diagnosis Pre-op evaluation- Primary Preoperative examination, [...] Assessment & Plan Note - Samreen Ricks APRN.IVORY - 12/07/2023 10:06 AM EDT Associated Problem(s): Hyperlipidemia, unspecified Assessment: Controlled with statin. Monitored per PCP. * Assessment & Plan Note - Samreen Ricks APRN.IVORY - 12/07/2023 10:06 AM EDT Associated Problem(s): Primary hypertension Assessment: Stable and compliant with medications Followed by PCP Last 5 Encounter BP Readings: Date: BP: 12/07/2023 132/68 documented in this encounter [place] [place]* Diagnosis Combined forms of age-related cataract of both eyes Other and combined forms of senile cataract Combined forms of age-related cataract of both eyes Other and combined forms of senile cataract Combined forms of age-related cataract of both eyes Other and combined forms of senile cataract [place]* Diagnosis Seborrheic keratosis- Primary History of SCC (squamous cell carcinoma) of skin Personal history of other malignant neoplasm of skin Lentigines Actinic keratosis documented in this encounter [facility] Summary Purpose Family History No Family History Records FoundNo Family History Records FoundNo Family History Records FoundNo Family History Records Found Advance Directives No Advanced Directives Records FoundNo Advanced Directives Records FoundNo Advanced Directives Records FoundNo Advanced Directives Records Found Additional Source Comments INFORMATION SOURCE (unrecogn ized section and content) DATE CREATED AUTHOR 07/04/[address] [facility] DATE CREATED AUTHOR AUTHOR'S ORGANIZ ATION 11/05/[address] [facility] DATE CREATED AUTHOR AUTHOR'S ORGANIZ ATION 01/04/2024 [facility] DATE CREATED AUTHOR AUTHOR'S ORGANIZ ATION 05/21/2024 [facility]de Specialists EPIC Source Comments (unrecognize d section and content) In the event this informatio n is protected by the Federal Confidentiality of Alcohol and Drug Abuse Patient Records regulations: The Federal rules restrict any use of the information to criminally investigate or prosecute any alcohol or drug abuse patient.[place] the event this information is protected by the Federal Confidentiality of Alcohol and Drug Abuse Patient Records regulations: The Federal rules restrict any use of the information to criminally investigate or prosecute any alcohol or drug abuse patient.[place] the event this information is protected by the Federal Confidentiality of Alcohol and Drug Abuse Patient Records regulations: The Federal rules restrict any use of the information to criminally investigate or prosecute any alcohol or drug abuse patient.[place] Reason for Visit (unrecogniz ed section and content) Reason Comments Cataract Evaluation Reason Comments Pre-Op Visit Reason Comments Pre-Op Exam Reason Comments Skin Check Care Teams (unrecognized sec tion and content) Collections Officer Relationship Specialty Start Date End Date Zhao Trinidad MD PCP - General Family Medicine 07/14/15 Collections Officer Relationship Specialty Start Date End Date Zhao Trinidad MD PCP - General Family Medicine 07/14/15 Collections Officer Relationship Specialty Start Date End Date Zhao Trinidad MD [address] [place] [address] PCP - General 01/16/23 Collections Officer Relationship Specialty Start Date End Date Zhao Trinidad MD [address] [place] [address] PCP - General 01/16/23 Collections Officer Relationship Specialty Start Date End Date Zhao Trinidad MD [address] [place] [address] PCP - General 01/16/23 FOR RECORDS PERTAINING TO PATIENTS WHO ARE [...] BE BASED ON THE PRIMARY CLINICAL RECORDS. [facility]. provides no warranty or guarantee of the accuracy or completeness of information in this document.
[2024-10-24 11:03] LABS: Basophils Absolute Auto 0.1 10^3/uL (0.0-0.1); Basophils Percent Auto 0.7 % (0.2-2.0); Eosinophils Absolute Auto 0.2 10^3/uL (0.0-0.7); Eosinophils Percent Auto 2.5 % (0.9-7.0); Hematocrit 39.4 % (36.0-48.0); Hemoglobin 13.5 g/dL (12.0-16.0); Immature Granulocytes Abs Auto 0.06 10^3/uL (0.00-0.03); Immature Granulocytes Pct Auto 0.6 % (0.0-0.5); Lymphocytes Absolute Auto 2.5 10^3/uL (1.2-3.8); Mean Corpuscular HGB Conc 34.3 g/dL (29.9-35.2); Mean Corpuscular Hemoglobin 30.3 pg (26.7-34.0); Mean Corpuscular Volume 88.5 fL (81.0-99.0); Mean Platelet Volume 9.8 fL (9.5-13.5); Monocytes Absolute Auto 0.5 10^3/uL (0.3-0.8); Monocytes Percent Auto 5.3 % (1.7-12.0); Neutrophils Absolute Auto 6.3 10^3/uL (1.4-6.5); Neutrophils Percent Auto 64.9 % (43.0-75.0); Platelet Count 269 10^3/uL (150-450); Red Blood Count 4.45 10^6/uL (4.20-5.40); Red Cell Distribution Width 12.8 % (11.0-15.0); White Blood Count 9.7 10^3/uL (4.0-11.0)
[2024-10-24 12:18] LABS: Estimated Average Glucose 134 mg/dL; Glycohemoglobin A1C 6.3 % (4.5-6.2)
[2024-10-24 13:47] LABS: Alanine Aminotransferase 32 U/L (14-59); Albumin Globulin Ratio 1.3; Albumin Level 4.3 g/dL (3.4-5.0); Alkaline Phosphatase 48 U/L (46-116); Aspartate Amino Transferase 20 U/L (15-37); BUN Creatinine Ratio 21.5; Bilirubin Total 0.6 mg/dL (0.2-1.0); Calcium 9.7 mg/dL (8.5-10.1); Carbon Dioxide 27.3 mmol/L (21.0-32.0); Chloride 101 mmol/L (98-107); Cholesterol 202 mg/dL (<=200); Estimated GFR (African America >60 (>=60 mL/min/1.73m^2); Estimated GFR (Non-African Ame 59 (>=60 mL/min/1.73m^2); Free T3 2.39 pg/mL (2.18-3.98); Globulin 3.4 g/dL; Glucose 123 mg/dL (74-106); HDL Cholesterol 68 mg/dL (40-60); Potassium 4.3 mmol/L (3.5-5.1); Sodium 137 mmol/L (136-145); Thyroid Stimulating Hormone 1.703 uIU/mL (0.358-3.740); Total Protein 7.7 g/dL (6.4-8.2); Triglycerides 138 mg/dL (<=150); VLDL CHOLESTEROL 27.6 mg/dL
== END 2024-10-24 10:33 | disposition home or self-care (01) ==
LOC: LAB 10:33
PROVIDERS: PCP Family Medicine; Visit Provider Family Medicine
DX: K21.9 Gastro-esophageal reflux disease without esophagitis (principal); E78.00 Pure hypercholesterolemia, unspecified; I10 Essential (primary) hypertension; E11.9 Type 2 diabetes mellitus without complications; D64.9 Anemia, unspecified; E03.9 Hypothyroidism, unspecified; R53.83 Other fatigue
CPT/HCPCS: 36415; 80053; 80061; 83036; 83540; 84436; 84443; 84481; 85025

== ENCOUNTER 2024-11-19 13:43 | Outpatient (OUT) | payer MEDICARE, OTHER, SELFPAY | END 2024-11-19 13:44 | disposition home or self-care (01) | LOC: PST 13:43 | PROVIDERS: PCP Family Medicine; Visit Provider Surgery | DX: Z01.818 Encounter for other preprocedural examination (principal); Z12.11 Encounter for screening for malignant neoplasm of colon ==

== ENCOUNTER 2024-11-27 08:23 | Day surgery (SDC) | payer MEDICARE, OTHER, SELFPAY ==
--- NOTE | 2024-11-27 | OP_ITS ---
OPERATION DATE: 11/27/2024 PREOPERATIVE DIAGNOSIS: Family history of colon cancer. POSTOPERATIVE DIAGNOSIS: Redundant colon. PROCEDURE: Colonoscopy to cecum. SURGEON: Kory Morrow M.D. ANESTHESIA: Monitored anesthesia care. ESTIMATED BLOOD LOSS: Zero. INDICATIONS AND CONSENT: Patient is a 69-year-old female, with a family history of colon cancer in her father, presents for screening colonoscopy. Indications, risks, benefits, alternatives of proceeding with colonoscopy were explained extensively to the patient, including the risks of bleeding, colon perforation or anesthetic complications. All of her questions were answered. Informed consent was obtained. PROCEDURE: Patient brought to the operating room, placed in the left lateral decubitus position. Monitored anesthesia care was provided. Rectal exam was performed which showed no masses or blood. The scope was inserted into the anal canal. Under direct visualization was advanced. With the aid of abdominal compression, it was able to be advanced to the cecum. There was noted to be a markedly redundant colon. There was noted to be a good prep with liquid stool throughout the colon that was partially irrigated clear. Upon withdrawal of the scope, mucosal surfaces were carefully examined. There were no mass lesions or polyps. No inflammatory changes or ulcerations. No significant diverticulosis. The scope was retroflexed in the anal canal. There was no significant hemorrhoidal disease. The scope was then withdrawn. Patient tolerated procedure well, was sent to recovery room in good condition. f/u colonoscopy should be in 5 years due to fmhx. CC: Julius Berger
[2024-11-27 08:30] VITALS: BP 133/80; PULSE 89; TEMP 36.6; O2SAT 99; BMI 26.0
[2024-11-27] MEDS: 0.9 % SODIUM CHLORIDE 500 ML 50 ML IV ×2 (08:53→10:13)
[2024-11-27 10:32] VITALS: BP 108/57; PULSE 68; O2SAT 98
[2024-11-27 10:47] VITALS: BP 107/65; PULSE 62; O2SAT 95
== END 2024-11-27 11:15 | disposition home or self-care (01) ==
PROVIDERS: PCP Family Medicine; Visit Provider Surgery
PROC: (CPT G0105; principal; 2024-11-27 09:30)
DX: Z12.11 Encounter for screening for malignant neoplasm of colon (principal); Z80.0 Family history of malignant neoplasm of digestive organs; Q43.8 Other specified congenital malformations of intestine; I10 Essential (primary) hypertension; E78.00 Pure hypercholesterolemia, unspecified; K21.9 Gastro-esophageal reflux disease without esophagitis; F41.9 Anxiety disorder, unspecified; Z85.42 Personal history of malignant neoplasm of other parts of uterus; Z90.710 Acquired absence of both cervix and uterus; Z87.891 Personal history of nicotine dependence
CPT/HCPCS: G0105; J1100; J2250; J2405; J2704; J3010

== ENCOUNTER 2025-01-29 14:58 | Outpatient (REF) | payer MEDICARE, OTHER, SELFPAY ==
--- OUTSIDE RECORDS SUMMARY | 2018-08-15 07:10 | XMS_ITS | Continuity of Care Document ---
Author Organization [facility] [employer]SendWell[employer] [facility] Address [address] [place] [address] Phone Care Team Providers Care Direct Care Staffer Name Role Phone Unavailable Unavailable Unavailable Procedures Procedure Date PREV VISIT, EST, AGE 40-64 PREV VISIT, EST, AGE 40-64 OBTAINING PAP SMEAR BUNDLED SERVICE URINALYSIS, AUTO, W/O SCOPE PREV VISIT, EST, AGE 40-64 URINALYSIS, AUTO, W/O SCOPE OBTAINING PAP SMEAR BUNDLED SERVICE PREV VISIT, EST, AGE 40-64 OBTAINING PAP SMEAR BUNDLED SERVICE URINALYSIS, AUTO, W/O SCOPE PREV VISIT, EST, AGE 40-64 OBTAINING PAP SMEAR BUNDLED SERVICE PREV VISIT, EST, AGE 40-64 OBTAINING PAP SMEAR BUNDLED SERVICE URINALYSIS, AUTO, W/O SCOPE PREV VISIT, EST, AGE 40-64 Advance Directives Directive Yes / No Effective Date File Name No Information Encounters Encounter Description Practice Location Reason(s) For Visit Diagnoses Date Provider Providers Copied on Encounter PREV VISIT, EST, AGE 40-64 [facility], [address], [place], [place], [id number], tel:[phone] [facility] No Information No Information PREV VISIT, EST, AGE 40-64 [facility], [address], [place], [place], [id number], [place] tel:[phone] [facility] No Information No Information PREV VISIT, EST, AGE 40-64 [facility], [address], [place], [place], [id number], [place] tel:[phone] [facility] No Information No Information PREV VISIT, EST, AGE 40-64 [facility], [address], [place], [place], [id number], [place] tel:[phone] [facility] No Information No Information PREV VISIT, EST, AGE 40-64 [facility], [address], [place], [place], [id number], [place] tel:[phone] [facility] No Information No Information PREV VISIT, EST, AGE 40-64 [facility], [address], [place], [place], [id number], [place] tel:[phone] [facility] No Information No Information PREV VISIT, EST, AGE 40-64 [facility], [address], [place], [place], [id number], [place] tel:[phone] [facility] No Information No Information Family History Family Member Type Diagnosis Age At Onset No Information Payers Payer name Insurance type Covered libertarian ID Mirza white(s) [facility] CI [id number] Social History Type Description Quantity Date Captured Comments Sex Female Smoking Status No Information Chief Complaint And Reason For Visit No Information Reason For Referral Reason For Referral No Information History Of Present Illness Encounter Date Complaint History Of Prese nt Illness No Information Functional Status Date Functional Assessmen t No Information Instructions Date Instruction Additional Infor mation No Information Assessments Type Assessment Date No Information Patient Care Teams Name Effective Dates (start - stop) Status Members No Information
--- OUTSIDE RECORDS SUMMARY | 2024-10-24 05:30 | XMS_ITS ---
Author Organization [facility] in [place] Address [address] [place] [address] Care Team Providers Care Pairer Name Role Phone Wilmer Trinidad Primary Care Provider Allergies Allergen (clinical drug ingredient) Drug/Non Drug Allergy documented on EMR Reaction Allergy Type Onset Date Status moxifloxacin Avelox hives Drug Allergy Acti ve diphenhydramine Benadryl goofy Drug Allergy A ctive REASON FOR VISIT Presents to office with for yearly wellness exam Medications Medication SIG (Take, Route, Frequency, Duration) Notes Start Date End Date Status Pantoprazole Sodium 40 MG TAKE 1 TABLET BY MOUTH EVERY DAY for 90 Active Simvastatin 20 MG TAKE 1 TABLET BY MYLENE TH EVERY DAY for 90 Active Prolia 60 MG/ML as directed Subcutaneous Active OneTouch Ultra - USE TO TEST BLOOD BEARD GAR DAILY DX: E11.9 for 90 days Active OneTouch Delica Plus [id number] - USE TO TEST DAILY *DX E11.9* for 90 Active Diclofenac Sodium 75 MG TAKE 1 TABLET BY MOUTH TWICE A DAY for 30 days Active Multivitamin Active Montelukast Sodium 10 MG TAKE 1 TABLET B Y MOUTH EVERY DAY for 90 Active Irbesartan 150 MG 1 tablet Orally Once a day for 30 days 2023 Active Ezetimibe 10 mg TAKE 1 TABLET BY MYLENE TH ONCE DAILY for 30 Active Desvenlafaxine Succinate ER 25 MG 1 tablet Orally Once a day for 90 days Active Social History Tobacco Use: Social History Observation Description Date Details (start date - stop date) Former Smoker 07/31/1971 - 07/31/1988 Tobacco Use/Smoking Question Answer Notes Patient is a former smoker When did you start smoking? 07/31/1971 When did you stop smoking? 07/31/1988 How long has it been since you last smoked? > 10 years AUDIT-C (Standard) Question Answer Notes Did you have a drink containing alcohol in the p ast year? No Points 0 Interpretation Negative Problems Problem Type SNOMED Code ICD Code Onset Dates Problem Status W/U Status Risk Notes Problem Diabetes (E11.9) Active confirmed Vital Signs Weight 158.9 lbs 10/24/2024 Height 67 in 10/24/2024 Blood pressure systolic 128 mm Hg 10/25/19 25 Blood pressure diastolic 64 mm Hg 025 BMI 24.88 kg/m2 10/24/2024 Encounters Encounter Location Date Provider Diagnosis [facility] [address] [place] [address] 10/24/2024 Wilmer Trinidad Gastro-esophageal re flux disease without esophagitis K21.9 ; Hypercholesteremia E78.00 ; Hypertension I10 and Diabetes E11.9 Assessments Encounter Date Diagnosis (ICD Code) Assessment Notes Treatment Notes Treatment Clinical Notes Section Notes 10/24/2024 Gastro-esophageal reflux disease without esophagitis (ICD-10 - K21.9) 10/24/2024 Hypercholesteremia (ICD-10 - E78.00) 10/24/2024 Hypertension (ICD-10 - I10) 10/24/2024 Diabetes (ICD-10 - E11.9) Plan Of Treatment Pending Test Test Name Order Date HEMOGLOBIN A1C (GLYCO) 10/24/2024 IRON, TOTAL 10/24/2024 LIPID PANEL (CHOL/TRIG/HDL/LDL) 10/25/19 25 THYROID PANEL (T4/TSH/FREE T3) CMP (COMP MET HORN) w/eGFR CKD-EPI 2024 CBC WITH DIFF 10/24/2024 Progress Notes * Taniya CAREYB:1955 (69 yo F)Acc No.[id number]:10/24/2024 Progress Note Patient: Anamaria MEYER Provider: Edilberto Trinidad (TTC)MD :1955 A ge:69 Y S ex:Female Date:10/24/2024 Address:[facility] [address] [place], [id number] Check In:09:28 AM ESTCheck O ut:10:09 AM EST Subjective: * Chief Complaints: * P resents to office with for yearly wellness exam * HPI: G eneral: Do well sugare runing 110's. * ROS: E ENT: hearing changes d enies. v isual changes d enies.�non-healing mouth sores d enies. s wollen glands or neck lumps d enies. h oarseness d enies. s ore throat d enies. d ifficulty swallowing d enies. n ose bleeds d enies. n tono congestion d enies. e ar ache d enies. e ar discharge�denies. r inging in ears d enies. l ight sensitivity d enies. e ye pain d enies. b lurring d enies. e ye irritation d enies. d ouble vision d enies.�vision loss d enies. G eneral/Constitutional: Sweats: D enies. F atigue d enies. S leep problems d enies. A norexia d enies. M alaise d enies. W eight loss d enies.�Fatigue or Weakness d enies. F ever or Chills d enies. C ardiovascular: Shortness of Breath w/lying flat d enies. L ightheadedness/dizziness d enies. C hest tightness/ heavy pressure d enies. S welling of legs, ankles, or feet d enies. W aking up with shortness of breath d enies. C hest pain denies. P alpitations d enies. W eight gain d enies. R espiratory: Chronic or frequent cough d enies. C oughing up blood�denies. D ifficulty breathing d enies. P roductive cough d enies. S noring�denies. S hortness of breath that awakens from sleep (PND) d enies. C hest pain d enies. S putum production d enies. W heezing d enies. M usculoskeletal: Joint pain d enies. J oint Fluid d enies. B ack pain d enies. K nee pain d enies. N halie pain d enies. J oint Stiffness d enies. M uscle cramps d enies. W eakness of muscles d enies. A rthritis d enies. M uscle aches d enies. P ain in shoulder(s) d enies. S wollen joints d enies. 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 B rother(s): alive, diagnosed with Diabetes mellitus without mention of complication, type II or unspecified type, not stated as uncontrolled. S ister(s): alive. S on(s): alive. D evieer(s): alive. M aternal Grandmother: diagnosed with Diabetes mellitus without mention of complication, type II or unspecified type, not stated as uncontrolled. 1 brother(s) , 1 sister(s) . 1 son(s) , 1 daughter(s) - healthy. . * Social History: T obacco Use: T obacco Use/Smoking P atient is a f ormer smoker W hen did you start smoking? 0 07/31/1971 W hen did you stop smoking? 0 07/31/1988 H ow long has it been since you last smoked?�> 10 years D rug/Alcohol: A GIA-C (Standard) D id you have a drink containing alcohol in the past year? N o P oints 0 I nterpretation N egative * Medications: T akingDesvenlafaxine Succinate ER 25 MG Tablet Extended Release 24 Hour 1 tablet Orally Once a day Diclofenac Sodium 75 MG Tablet Delayed Release TAKE 1 TABLET BY MOUTH TWICE A DAY Ezetimibe 10 mg Tablet TAKE 1 TABLET BY MOUTH ONCE DAILY Irbesartan 150 MG Tablet 1 tablet Orally Once a day Montelukast Sodium 10 MG Tablet TAKE 1 TABLET BY MOUTH EVERY DAY Multivitamin OneTouch Delica Plus [id number](Lancets) - Miscellaneous USE TO TEST DAILY *DX E11.9* OneTouch Ultra(Glucose Blood) - Strip USE TO TEST BLOOD SUGAR DAILY DX: E11.9 Pantoprazole Sodium 40 MG Tablet Delayed Release TAKE 1 TABLET BY MOUTH EVERY DAY Prolia(Denosumab) 60 MG/ML Solution Prefilled Syringe as directed Subcutaneous Simvastatin 20 MG Tablet TAKE 1 TABLET BY MOUTH EVERY DAY Taking Desvenlafaxine Succinate ER 25 MG Tablet Extended Release 24 Hour 1 tablet Orally Once a day Taking Diclofenac Sodium 75 MG Tablet Delayed Release TAKE 1 TABLET BY MOUTH TWICE A DAY Taking Ezetimibe 10 mg Tablet TAKE 1 TABLET BY MOUTH ONCE DAILY Taking Irbesartan 150 MG Tablet 1 tablet Orally Once a day Taking Montelukast Sodium 10 MG Tablet TAKE 1 TABLET BY MOUTH EVERY DAY Taking Multivitamin Taking OneTouch Delica Plus [id number](Lancets) - Miscellaneous USE TO TEST DAILY *DX E11.9* Taking OneTouch Ultra(Glucose Blood) - Strip USE TO TEST BLOOD SUGAR DAILY DX: E11.9 Taking Pantoprazole Sodium 40 MG Tablet Delayed Release TAKE 1 TABLET BY MOUTH EVERY DAY Taking Prolia(Denosumab) 60 MG/ML Solution Prefilled Syringe as directed Subcutaneous Taking Simvastatin 20 MG Tablet TAKE 1 TABLET BY MOUTH EVERY DAY DiscontinuedAlendronate Sodium 70 MG Tablet TAKE 1 TABLET BY MOUTH ONE TIME PER WEEK Medication List reviewed and reconciled with the patientDiscontinued Alendronate Sodium 70 MG Tablet TAKE 1 TABLET BY MOUTH ONE TIME PER WEEK Medication List reviewed and reconciled with the patient * Allergies: A velox: hives - AllergyBenadryl: goofy - Side Effectsno[Allergies Verified] Objective: * Vitals: W t:158.9lbs, Ht: 67 in, BP:128/64mm Hg, BMI:24.88Index, Ht-cm: 170.18 cm, Wt-k.08 kg. * Examination: P hysical Exam: GENERAL: w ell developed, well nourished, in no acute distress. HEAD: n ormocephalic/atraumatic. EYES: p upils equal, round and reactive to light, conjunctivae and sclerae normal. EARS: n o deformity or lesion of external ear, canals and TM appear normal bilaterally, TM's intact, not inflamed with normal light reflex, hearing grossly normal to conversational speech. NOSE: n o deformity, discharge, inflammation, or lesions.� MOUTH: m ucous membranes moist, normal oropharynx and posterior pharynx without lesions or exudates, tongue normal, dentition normal. NECK: n halie supple, no masses or palpable cervical nodes, trachea midline, thyroid without nodules, masses, tenderness, or enlargement. CHEST: n o chest wall deformity, no chest wall tenderness.� LUNGS: n ormal respiratory effort and clear to auscultation, no wheezes, rales, or rhonchi, good air exchange. CARDIO: r egular rate and rhythm, normal S1 and S2, nor murmur, rub, or gallop. PULSES: n ormal capillary refill. ABDOMEN: s oft, non-distended, non-tender, no masses. MUSCULOSKELETAL: n o deformity or scoliosis noted, normal range of motion, joints normal, no erythema, edema, effusion, or ecchymosis. EXTREMITY: n o clubbing, cyanosis, edema, or deformity with normal ROM in both upper and lower bilateral extremities. NEUROLOGIC: g rossly normal. SKIN: n o rashes, ulcerations, or suspicious lesions. LYMPH NODES: n o cervical adenopathy, nodes normal. MENTAL STATUS: a lert and oriented x3, normal mood and affect. Assessment: * Assessment: 1. G vidhi-esophageal reflux disease without esophagitis - K21.9 (Primary) 2 .�Hypercholesteremia - E78.00 3 . H ypertension - I10 4 .�Diabetes - E11.9 Plan: * Treatment: 2. H ypercholesteremia L AB: HEMOGLOBIN A1C (GLYCO) L AB: IRON, TOTAL L AB: LIPID PANEL (CHOL/TRIG/HDL/LDL) L AB: THYROID PANEL (T4/TSH/FREE T3) L AB: CMP (COMP MET HORN) w/eGFR CKD-EPI L AB: CBC WITH DIFF 3. H ypertension L AB: HEMOGLOBIN A1C (GLYCO) L AB: IRON, TOTAL L AB: LIPID PANEL (CHOL/TRIG/HDL/LDL) L AB: THYROID PANEL (T4/TSH/FREE T3) L AB: CMP (COMP MET HORN) w/eGFR CKD-EPI L AB: CBC WITH DIFF 4. D iabetes L AB: HEMOGLOBIN A1C (GLYCO) L AB: IRON, TOTAL L AB: LIPID PANEL (CHOL/TRIG/HDL/LDL) L AB: THYROID PANEL (T4/TSH/FREE T3) L AB: CMP (COMP MET HORN) w/eGFR CKD-EPI L AB: CBC WITH DIFF * Procedure Codes: * Preventive Medicine: Screenings/Counseling: B SD ACTION PLAN Above Normal BMI Follow-up D ietary management education, guidance, and counseling See treatment section of progress note for complete details of management plan. F ALL RISK SCREENING Fall Risk Assessment: N o falls in the past year * * Sign off status: Completed Visit Status: C HK (Check Out) true * Provider: Edilberto Trinidad (TTC)MD Date: 0 10/24/2024 Generated for Printi ng/Faxing/eTransmitting on: 0 01/29/2025 03:02 PM EDT History and Physical Notes * HPI (History of Present Illness) Category Sub-Category Detail Notes Category Not es General Do well sugare runing 110's Examination Category Sub-Category Detail Notes Category Not es Physical Exam GENERAL: well developed, well nourished, in no acute distress HEAD: normocephalic/atraum atic EYES: pupils equal, round and reactive to light, conjunctivae and sclerae normal EARS: no deformity or lesi on of external ear, canals and TM appear normal bilaterally, TM's intact, not inflamed with normal light reflex, hearing grossly normal to conversational speech NOSE: no deformity, discha rge, inflammation, or lesions MOUTH: mucous membranes srikanth st, normal oropharynx and posterior pharynx without lesions or exudates, tongue normal, dentition normal NECK: neck supple, no mass es or palpable cervical nodes, trachea midline, thyroid without nodules, masses, tenderness, or enlargement CHEST: no chest wall deform ity, no chest wall tenderness LUNGS: normal respiratory e ffort and clear to auscultation, no wheezes, rales, or rhonchi, good air exchange CARDIO: regular rate and rhy thm, normal S1 and S2, nor murmur, rub, or gallop PULSES: normal capillary ref ill ABDOMEN: soft, non-distended, non-tender, no masses RECTAL: MUSCULOSKELETAL: no deformity or scol iosis noted, normal range of motion, joints normal, no erythema, edema, effusion, or ecchymosis EXTREMITY: no clubbing, cyanosi s, edema, or deformity with normal ROM in both upper and lower bilateral extremities NEUROLOGIC: grossly normal SKIN: no rashes, ulceratio ns, or suspicious lesions LYMPH NODES: no cervical adenopat hy, nodes normal MENTAL STATUS: alert and oriented x 3, normal mood and affect
--- OUTSIDE RECORDS SUMMARY | 2024-10-24 05:58 | XMS_ITS ---
Author Organization [facility] in [place] Address [address] [place] [address] Care Team Providers Care Guide Escort Name Role Phone GerardoWilmer duenas Primary Care Provider [phone] Reason For Referral Diagnosis 1 Screening for colon cancer (Z12.11) Referral Organization [facility] Referring Provider First Name Wilmer Referring Provider Last Name Vivi Ref[facility] icibharat Referred Provider Kory Morrow Referred Provider Specialty General Surg janet Referral Priority Routine REASON FOR VISIT when last colonoscopy Encounters Encounter Location Date Provider Diagnosis [facility] [address] [facility] [place] [address] 10/24/2024 Wilmer Trinidad Screening for colon cancer Z12.11 Assessments Encounter Date Diagnosis (ICD Code) Assessment Notes Treatment Notes Treatment Clinical Notes Section Notes 10/24/2024 Screening for colon cancer (ICD-10 - Z12.11) Plan Of Treatment Referrals Referral Date Details 10/24/2024 10/24/2024, Kory Morrow Progress Notes * Anamaria CAREYDOB:1955 (69 yo F)Acc No.[id number]:10/24/2024 Patient: Anamaria MEYER :1955 A ge:69 Y S ex:Female Address:[address] [place], [address] Subjective: * Chief Complaints: * W hen last colonoscopy * Medical History: * Surgical History: * Hospitalization/Major Diagno stic Procedure: * Medications: Objective: * Vitals: * Physical Examination: Assessment: * Assessment: 1. S creening for colon cancer - Z12.11 (Primary) Plan: * Treatment: * Procedure Codes: * true * Date: Generated for Kobe dias/Cas/Isa on: 0 01/29/2025 03:02 PM EDT Consultation Request Notes Referral Date Referring Provider Referred Provider Not es 10/24/2024 Wilmer Trinidad Michael
--- OUTSIDE RECORDS SUMMARY | 2025-01-29 13:00 | XMS_ITS | Encounter Summary ---
Author Organization [facility] Address [address] [place] [address] Care Team Providers Care Textile Coating Machine Operator Name Role Phone Gerson Trinidad MD Primary Care Provider [phone] Reason for Visit * Reason Comments Well Women Visit Encounter Details Date Type Department Care Team (Late st Contact Info) Description 01/29/2025 1:00 PM EDT Office Visit [facility] [address] [place] [address] Jairo Aj, DO [address] [place], [place] [id number] Well woman exam with routine gynecological exam; Encounter for screening mammogram for malignant neoplasm of breast; Postmenopausal state Social History Tobacco Use Types Packs/Day Years Used Date Smoking Tobacco: Former Cigarettes Smokeless Tobacco: Never Alcohol Use Standard Drinks/Week Comments Yes 2 (1 standard drink = 0.6 oz pur e alcohol) Comments Unknown Sex and Gender Information Value Date Recorded Sex Assigned at Female 01/10/2023 7:57 PM EDT Legal Sex Female 6:45 PM EDT Gender Identity Female 01/10/2023 7:57 PM EDT Sexual Orientation Asexual 01/10/2023 7: 57 PM EDT documented as of this encounter Last Filed Vital Signs Vital Sign Reading Time Taken Comments Blood Pressure 122/50 01/29/2025 1:14 PM EDT Pulse - - Temperature - - Respiratory Rate - - Oxygen Saturation - - Inhaled Oxygen Concentration - - Weight 70.2 kg (154 lb 12 oz) 01/29/2025 1:14 PM EDT Height - - Body Mass Index 24.98 01/29/2024 1:10 PM EDT documented in this encounter Progress Notes * STEPHANE Vaca - 01/29/2025 1:00 PM EDT Reason for Appointment: Patient ID: Jessica Carey is a 69 y.o. female who presents for Well Women Visit Patient presents today for Annual Exam. MEDICATIONS Current Outpatient Medications Medication Instructions alendronate (Fosamax) 70 MG tablet Fosamax calcium 200 MG tablet Calcium cyanocobalamin (Vitamin B-12) 100 MCG tablet Vitamin B12 desvenlafaxine succinate ER (Pristiq) 25 MG 24 hour tablet Every 24 hours diclofenac (VOLTAREN) 75 mg, 2 times daily ergocalciferol (VITAMIN D-2) 100 mcg, Daily estradiol (ESTRACE) 2 g, Daily ezetimibe (ZETIA) 10 mg, Daily irbesartan (AVAPRO) 150 mg, Daily Lancets (OneTouch Delica Plus [id number]) misc USE TO TEST ONCE DAILY *E11.9* lisinopril 10 mg, Daily montelukast (Singulair) 4 MG chewable tablet Singulair MULTIPLE VITAMIN IV Multiple Vitamin OneTouch Ultra test strip USE DIRECTED TO TEST BLOOD SUGAR DAILY *DX: E11.9* pantoprazole (PROTONIX) 40 mg, Daily before breakfast Simvastatin 20 MG/5ML suspension Simvastatin ALLERGIES Allergies Allergen Reactions Diphenhydramine Other Reaction(s): goofy Moxifloxacin Other Reaction(s): hives Propofol Other Nausea and vomitting PROBLEMS Active Ambulatory Problems Diagnosis Date Noted Personal history of other malignant neoplasm of skin 01/11/2023 Resolved Ambulatory Problems Diagnosis Date Noted No Resolved Ambulatory Problems Past Medical History: Diagnosis Date Actinic keratoses Cancer of skin, squamous cell History of endometrial cancer Menopause Osteopenia HISTORY PAST MEDICAL HISTORY SOCIAL HISTORY Past Medical History: Diagnosis Date Actinic keratoses Cancer of skin, squamous cell History of endometrial cancer Menopause Osteopenia Social History Tobacco Use Smoking status: Former Types: Cigarettes Smokeless tobacco: Never Substance Use Topics Alcohol use: Yes Alcohol/week: 2.0 standard drinks of alcohol Types: 2 Cans of beer per week Drug use: Never FAMILY HISTORY Family History Problem Relation Name Age of Onset Diabetes Mother Mother Cancer Father Father Diabetes Maternal Grandmother Grandmother Diabetes Brother Brother Melanoma Neg Hx SURGICAL HISTORY Past Surgical History: Procedure Laterality Date COLPOSCOPY 07/05/2017 HYSTERECTOMY INTRAOCULAR LENS INSERTION Bilateral 2023 REVIEW OF SYSTEMS Review of Systems: Review of Systems Constitutional: Negative. HENT: Negative. Eyes: Negative. Respiratory: Negative. Cardiovascular: Negative. Gastrointestinal: Negative. Genitourinary: Negative. Musculoskeletal: Negative. Skin: Negative. Neurological: Negative. All other systems reviewed and are negative. Hematological: Negative. Endocrine: Negative. Allergic/Immunologic: Negative. OBJECTIVE Objective: Physical Exam Constitutional: Appearance: Normal appearance. Genitourinary: Right Adnexa: not tender and no mass present. Left Adnexa: not tender and no mass present. Cervix is absent. No cervical discharge. Uterus is absent. Breasts: Breasts are soft. Right: Normal. Left: Normal. HENT: Head: Normocephalic. Nose: Nose normal. Mouth/Throat: Mouth: Mucous membranes are moist. Cardiovascular: Rate and Rhythm: Normal rate. Pulmonary: Effort: Pulmonary effort is normal. Abdominal: General: Bowel sounds are normal. Palpations: Abdomen is soft. Musculoskeletal: General: Normal range of motion. Cervical back: Normal range of motion. Neurological: General: No focal deficit present. Mental Status: She is alert. Skin: General: Skin is warm and dry. Psychiatric: Mood and Affect: Mood normal. Vitals and nursing note reviewed. Exam conducted with a multimedia developer present. Vitals: Estimated body mass index is 24.98 kg/m² as calculated from the following: Height as of 01/29/24: 5' 6 . Weight as of this encounter: 154 lb 12 oz. BP: 122/50 No LMP recorded. ASSESSMENT & PLAN ICD-10-CM 1. Well woman exam with routine gynecological exam Z01.419 THIN PREP TIS PAP AND HR HPV DNA 2. Encounter for screening mammogram for malignant neoplasm of breast Z12.31 Bilateral screening mammogram Bilateral screening mammogram 3. Postmenopausal state Z78.0 Annual: Patient presents today for an annual exam. Patient states she is doing well and has no complaints. Pap was obtained without difficulty and patient given mammogram order to have scheduled/obtained. Orders Placed This Encounter Procedures Bilateral screening mammogram Follow Up: Patient is to return in one year for annual unless needed otherwise. Documented by STEPHANE Vaca on behalf of: Jairo Aj DO documented in this encounter Plan of Treatment Upcoming Encounters Date Type Department Care Team (Late st Contact Info) Description 06/04/2025 10:45 AM EST Office Visit [facility] [address] [place] [address] Judy Lucas MD [address] [place] [address] 02/03/2026 1:00 PM EDT Office Visit [facility] [address] [place] [address] Junie Conner PA [address] [place], [place] [phone] Scheduled Orders Name Type Priority Associated Diagnoses Orde r Schedule Bilateral screening mammogram Imaging Routine Encounter for screening mammogram for malignant neoplasm of breast Expected: 01/29/2025, Expires: 04/01/2026 THIN PREP TIS PAP AND HR HPV DNA Pathology and Cytology Routine Well woman exam with routine gynecological exam Ordered: 01/29/2025 documented as of this encounter Visit Diagnoses Diagnosis Well woman exam with routine gynecological exam Routine gynecological examination Encounter for screening mammogram for malignant neoplasm of breast Postmenopausal state Asymptomatic postmenopausal status (age-related) (natural) documented in this encounter Care Teams Textile Coating Machine Operator Relationship Specialty Start Date End Date Gerson Trinidad MD [address] [place] [address] PCP - General 01/16/23 documented as of this encounter
--- OUTSIDE RECORDS SUMMARY | 2025-01-29 15:01 | XMS_ITS | Clinical Summary ---
Author Organization [facility] Address [address] [place] [address] Care Team Providers Care Foreign Exchange Trader Name Role Phone Gerson Trinidad MD Primary Care Provider [phone] Allergies No known active allergies Medications alendronate (FOSAMAX) 70 mg tablet Take 1 tablet by mouth one time a week. 4 Active ONETOUCH ULTRA TEST test strip USE TO TEST BLOOD SUGAR DAILY DX: E11.9 4 Active cyanocobalamin (VITAMIN B-12) 100 mcg tab Vitamin B12 Active desvenlafaxine ER (PRISTIQ) 25 mg 24 hr tablet Take 1 tablet by mouth every afternoon. 4 Active diclofenac, EC, (VOLTAREN) 75 mg EC tablet Take 1 tablet by mouth every 12 hours. 4 Active estradiol (ESTRACE) 0.01 % (0.1 mg/gram) vaginal cream Use 2 g vaginally. Active ezetimibe (ZETIA) 10 mg tablet Take 1 tablet by mouth every afternoon. 4 Active irbesartan (AVAPRO) 150 mg tablet 4 Active montelukast (SINGULAIR) 10 mg tablet Take 1 tablet by mouth every afternoon. [address] (PROTONIX) 40 mg tablet Take 1 tablet by mouth every afternoon. 3 Active simvastatin (ZOCOR) 20 mg tablet Take 1 tablet by mouth every afternoon. 4 Active prednisoLONE acetate (PRED FORTE) 1 % ophthalmic suspension USE DIRECTED BY PHYSICIAN, IN OPERATIVE EYE, BEGINNING ONE DAY AFTER SURGERY 5 mL 4 Active keTORolac (ACULAR) 0.5 % ophthalmic solution USE DIRECTED BY PHYSICIAN, IN OPERATIVE EYE, BEGINNING ONE DAY AFTER SURGERY 5 mL 4 Active prednisoLONE acetate (PRED FORTE) 1 % ophthalmic suspension USE DIRECTED BY PHYSICIAN, IN OPERATIVE EYE, BEGINNING ONE DAY AFTER SURGERY 5 mL 4 Active keTORolac (ACULAR) 0.5 % ophthalmic solution USE DIRECTED BY PHYSICIAN, IN OPERATIVE EYE, BEGINNING ONE DAY AFTER SURGERY 5 mL 4 Active Active Problems Problem Noted Date Diagnosed Date Primary hypertension 12/07/2023 Assessment & Plan (12/07/2023 10:06 AM EDT): Assessment: Stable and compliant with medications Followed by PCP Last 5 Encounter BP Readings: Date: BP: 12/07/2023 132/68 Gastro-esophageal reflux disease without esophag itis 10/22/2022 Assessment & Plan (12/07/2023 10:06 AM EDT): Assessment: Well controlled with PPI Hyperlipidemia, unspecified 10/22/2022 Assessment & Plan (12/07/2023 10:06 AM EDT): Assessment: Controlled with statin. Monitored per PCP. Family History Medical History Relation Comments Glaucoma Brother Macular Degen Brother Cataract Mother Amblyopia No Family History Anesthesia Problems No Family History Blindness No Family History Detached Retina No Family History Strabismus No Family History Relation Status Comments Brother Mother Social History Tobacco Use Types Packs/Day Years Used Date Smoking Tobacco: Former Cigarettes 1 15 Smokeless Tobacco: Never Alcohol Use Standard Drinks/Week Comments Yes 0 (1 standard drink = 0.6 oz pur e alcohol) wine daily Area Deprivation Index Answer Date Shaka rded National Score (1-100), lower number is lower ri sk 63 11/29/2023 State Score (1-10), lower number is lower risk 4 11/29/2023 Data from: https://www.neighborhoodatlas.medicine.[facility]/. Last address used for calculation [address] 11/29/2023 Comments No Sex and Gender Information Value Date Recorded Sex Assigned at Not on file Legal Sex Female 2:18 PM EST Gender Identity Not on file Sexual Orientation Not on file Last Filed Vital Signs Vital Sign Reading Time Taken Comments Blood Pressure 123/59 01/03/2024 12:47 PM EDT Pulse 74 01/03/2024 12:37 PM EDT Temperature 36.7 C (98.1 F) 01/03/2024 12:37 PM EDT Respiratory Rate 16 01/03/2024 12:4 7 PM EDT Oxygen Saturation 96% 01/03/2024 12: 47 PM EDT Inhaled Oxygen Concentration - - Weight 77.5 kg (170 lb 13.7 oz) 024 10:00 AM EDT Height 170.2 cm (5' 7 ) 12/07/2023 10:0 0 AM EDT Body Mass Index 26.76 12/07/2023 10:00 AM EDT Plan of Treatment Health Maintenance Due Date Last Done Comments Annual PCP Team Chronic Dise ase Visit 1971 Anxiety Screening 1971 Depression Screening 1971 Hepatitis C Screening 1971 DTaP,Tdap,Td Vaccine (1 - Tdap) [address] Colonography 1998 Cologuard (FIT-DNA) 1998 Colonoscopy 1998 Colorectal Cancer Screening 1998 Diabetes Screening 1998 Fecal Occult Blood 1998 Lipid Screening 1998 Sigmoidoscopy 1998 Medicare Annual Wellness Visit 08/31/2018 Bone Density Screening 2018 Covid-19 Vaccine (6 - 2023-2 5 season) 2024 07/04/2023, 06/21/2022, 05/18/2021, Additional history exists Advance Directive Discussion 07/31/2024 Influenza Vaccine (#1) 2025 , 06/14/2022, 05/14/2021, Additional history exists RSV Vaccine (1 - 1-dose 75+ series) 2028 Pneumococcal Vaccine: 50+ Completed 09/17/2021, Shingrix Vaccine Completed 05/15/2023, 03/06/2023 Medical Devices Implanted Type Area Title Agent Device Identifier Shelf Expiration Date Model / Serial / Lot [id number] [employer] - [id number] Implanted:Qty : 1 on 12/20/2023 by Savanna Moreno V, MD at [facility] Intraocular Lens Left: Eye [employer] 05/30/2027 [id number].25 0 / [id number] / Description:-0.34 [id number] [employer] - [id number] Implanted:Qty : 1 on 01/03/2024 by Savanna Moreno V, MD at [facility] Intraocular Lens Right: Eye [employer] 05/29/2027 [id number].25 5 / [id number] / Description:-0.30 [place] [facility] [place] Care Teams Foreign Exchange Trader Relationship Specialty Start Date End Date Gerson Trinidad MD PCP - General Family Medicine 07/14/15
--- OUTSIDE RECORDS SUMMARY | 2025-01-29 15:02 | XMS_ITS | Encounter Summary ---
Author Organization [facility] Address [address] [place] [address] Care Team Providers Care Claim Clerk Name Role Phone Gerson Trinidad MD Primary Care Provider [phone] Encounter Details Date Type Department Care Team (Late st Contact Info) Description 01/29/2025 Bamboo flowsheet [facility] [address] [place] [address] Jairo Aj, DO [address] [place], [facility] Social History Tobacco Use Types Packs/Day Years [...] PM EDT documented as of this encounter Plan of Treatment Upcoming Encounters Date Type Department Care Team (Late st Contact Info) Description 06/04/2025 10:45 AM EST Office Visit [facility] [address] [place] [phone] Judy Lucas MD [address] [place] [address] 02/03/2026 1:00 PM EDT Office Visit [facility] BCP OB [address] [facility] [place] [phone] Junie Conner PA [address] [facility] [place] [address] documented as of this encounter Visit Diagnoses Not on filedocumented in this encounter Care Teams Claim Clerk Relationship Specialty Start Date End Date Gerson Trinidad MD [address] [facility] [place] [address] PCP - General 01/16/23 documented as of this encounter
--- OUTSIDE RECORDS SUMMARY | 2025-01-29 15:02 | XMS_ITS | Encounter Summary ---
Author Organization [facility] Address [address] [place] [address] Care Team Providers Care Insurance Account Representative Name Role Phone Gerson Trinidad MD Primary Care Provider [phone] Encounter Details Date Type Department Care Team (Late st Contact Info) Description 02/06/2024 Clinisync Result Encounter [facility] External Department Unsolicited Jairo Aj, DO [address] [place], [place] [address] Social History Tobacco Use Types Packs/Day Years [...] Office Visit [facility] [address] [place] [address] Judy Lucas MD [address] [place] [id number] 02/03/2026 1:00 PM EDT Office Visit [facility] BCP OB [address] [place] [address] Junie Conner PA [address] [place] [address] [place] [address] documented as of this encounter Procedures Procedure Name Priority Date/Time Associated Diagnosis Comments MM TOMOSYNTHESIS SCREENING BI 02/06/2024 9:57 AM EDT documented in this encounter Results * MM TOMOSYNTHESIS SCREENING BI (02/06/2024 9:57 AM EDT) Anatomical Region Laterality Modality Other 02/06/2024 9:57 AM EDT Narrative 02/06/2024 9:58 AM EDT [address] [address] Mammography Report Signed Patient: ANAMARIA CAREY MR#: [id number] : 1955 Acct:[id number] Age/Sex: 68 / F ADM Date: 02/06/24 Loc: MAMMO Attending Dr: Jairo Aj D.O. Ordering Physician: Jairo Aj D.O. Results: Date of Service: 02/06/24 Follow Up: Procedure(s): MM tomosynthesis screening BI Accession Number(s): [id number] cc: Jairo Aj D.O.; Gerson Trinidad M.D. Patient Name: ANAMARIA CAREY MR#: [id number] : 1955 Exam Date: 02/06/2024 Ordering Doctor: DR Jairo Aj . RADIOLOGY REPORT PROCEDURE: MM TOMOSYNTHESIS SCREENING BI COMPARISON: MG MAMM SCREEN 3D CARISSA CAD, 01/17/2022. MM TOMOSYNTHESIS SCREENING BI, 01/27/2023. INDICATIONS: Screening Calculator Name NCI Breast Cancer Risk Assessment Tool 5 Year Breast Cancer Risk 1.50% Lifetime Breast Cancer Risk 4.50% Personal Breast Cancer No Personal Ovarian Cancer No Treatments HYSTERECTOMY Family Cancers Grandfather-paternal with colon cancer at age 56. LOCATION: [facility] BREAST COMPOSITION: The breasts are almost entirely fatty. FINDINGS: DIAGNOSTIC CATEGORY 2--BENIGN FINDING. NO CHANGE FROM COMPARISON. Scattered benign-appearing calcifications are present. Scattered benign-appearing lymph nodes are present. RIGHT BREAST: No significant suspicious finding. LEFT BREAST: No significant suspicious finding. RECOMMENDATIONS: ROUTINE MAMMOGRAM AND CLINICAL EVALUATION IN 12 MONTHS. PLEASE NOTE: A NORMAL MAMMOGRAM DOES NOT EXCLUDE THE POSSIBILITY OF BREAST CANCER. A CLINICALLY SUSPICIOUS PALPABLE LUMP SHOULD BE BIOPSIED. Dictated by: Wilder Kerr MD on 02/06/2024 at 09:55 Approved by: Wilder Kerr MD on 02/06/2024 at 09:57 Dictated By: Wilder Kerr M.D. Signed By: 02/06/2458 DD/ TD/TT: Metal Miner: Procedure Note Radiology, Radiologist, - 02/06/2024 [place] [address] Mammography Report Signed Patient: ANAMARIA CAREY LMR#: [id number] : 1955cct:[id number] Age/Sex: 68 / FADM Date: 02/06/24 Loc: MAMMO Attending Dr: Jairo Aj D.O. Ordering Physician: Jairo Aj D.O.Results: Date of Service: 02/06/24Follow Up: Procedure(s): MM tomosynthesis screening BI Accession Number(s): [id number] cc: Jairo Aj D.O.; Gerson Trinidad M.D. Patient Name: ANAMARIA CAREY MR#: [id number] : 1955 Exam Date: 02/06/2024 Ordering Doctor: DR Jairo Aj . RADIOLOGY REPORT PROCEDURE: MM TOMOSYNTHESIS SCREENING BI COMPARISON: MG MAMM SCREEN 3D CARISSA CAD, 01/17/2022. MM TOMOSYNTHESIS SCREENING BI, 01/27/2023. INDICATIONS: Screening Calculator Name NCI Breast Cancer Risk Assessment Tool 5 Year Breast Cancer Risk 1.50% Lifetime Breast Cancer Risk 4.50% Personal Breast Cancer No Personal Ovarian Cancer No Treatments HYSTERECTOMY Family Cancers Grandfather-paternal with colon cancer at age 56. LOCATION: [facility] BREAST COMPOSITION: The breasts are almost entirely fatty. FINDINGS: DIAGNOSTIC CATEGORY 2--BENIGN FINDING. NO CHANGE FROM COMPARISON. Scattered benign-appearing calcifications are present. Scattered benign-appearing lymph nodes are present. RIGHT BREAST: No significant suspicious finding. LEFT BREAST: No significant suspicious finding. RECOMMENDATIONS: ROUTINE MAMMOGRAM AND CLINICAL EVALUATION IN 12 MONTHS. PLEASE NOTE: A NORMAL MAMMOGRAM DOES NOT EXCLUDE THE POSSIBILITY OFBREAST CANCER. A CLINICALLY SUSPICIOUS PALPABLE LUMP SHOULD BE BIOPSIED. Dictated by: Wilder Kerr MD on 02/06/2024 at 09:55 Approved by: Wilder Kerr MD on 02/06/2024 at 09:57 Dictated By: Wilder Kerr M.D. Signed By:02/06/24957 DD/ 6 TD/TT: Metal Miner: [facility] Jean Marie DO [facility] Final Result documented in this encounter Visit Diagnoses Not on filedocumented in this encounter Care Teams Insurance Account Representative Relationship Specialty Start Date End Date Gerson Trinidad MD [address] [place] [phone] PCP - General 01/16/23 documented as of this encounter
--- OUTSIDE RECORDS SUMMARY | 2025-01-29 15:02 | XMS_ITS | Encounter Summary ---
Author Organization [facility] Address [address] [place] [address] Care Team Providers Care Lehr Loader Name Role Phone Gerson Trinidad MD Primary Care Provider [phone] Encounter Details Date Type Department Care Team (Late st Contact Info) Description 02/06/2024 Clinisync Result Encounter [facility] External Department Unsolicited Messi Aj, DO [address] [place], [place] [address] Social History Tobacco Use Types Packs/Day Years [...] DERM [address] [place] [address] Judy Lucas MD [address] [place] [id number] 02/03/2026 1:00 PM EDT Office Visit [facility] OB [address] [place] [address] Junie Conner PA [address] [place] [address] Dr [address] [place] [phone] (work) documented as of this encounter Procedures Procedure Name Priority Date/Time Associated Diagnosis Comments XR DEXA AXIAL SKELETON 02/06/2024 9:34 AM EDT documented in this encounter Results * XR DEXA AXIAL SKELETON (02/06/2024 9:34 AM EDT) Anatomical Region Laterality Modality Other 02/06/2024 9:34 AM EDT Narrative 02/06/2024 9:37 AM EDT [address] [address] XRay Report Signed Patient: ANAMARIA CAREY MR#: [id number] : 1955 Acct:[id number] Age/Sex: 68 / F ADM Date: 02/06/24 Loc: MAMMO Attending Dr: Messi Aj D.O. Ordering Physician: Messi Aj D.O. Date of Service: 02/06/24 Procedure(s): XR DEXA axial skeleton Accession Number(s): [id number] cc: Messi Aj D.O.; Gerson Trinidad M.D. [address] [address] Patient Name: ANAMARIA CAREY MRN: [id number] date: 1955 Sex: F Assigned Patient Location: MAMMO Current Patient Location: MAMMO Accession/Order Number: [id number] Exam Date: 02/06/2024 09:15 Report Date: 02/06/2024 09:34 At the request of: MESSI AJ Procedure: XR DEXA axial skeleton EXAMINATION: XR DEXA axial skeleton, 02/06/2024 9:15 AM EDT HISTORY: Postmenopausal State COMPARISON: 2021, 2019, 2014, 2010. TECHNIQUE: Dual-energy X-ray absorptiometry (DEXA) bone density study performed for the axial skeleton. FINDINGS: Bone mineral density of the lumbar spine L1-L4 measures 1.156 g/sq cm. T score -0.2. Normal. Lowest bone mineral density left femoral trochanter measuring 0.64 g/sq cm. T score -2.0. WHO classification: Osteopenia XR/XR DEXA axial skeleton IMPRESSION: Osteopenia. Moderate fracture risk Pharmacologic treatment recommendations * No uniform recommendation applies to all patients. Management plans must be individualized. * Consider initiating pharmacologic treatment in postmenopausal women and men >= 50 years of age who have the following: Primary fracture prevention: * T-score <= - 2.5 at the femoral neck, total hip, lumbar spine, 33% radius (some uncertainty with existing data) by DXA. * Low bone mass (osteopenia: T-score between - 1.0 and - 2.5) at the femoral neck or total hip by DXA with a 10-year hip fracture risk >= 3% or a 10-year major osteoporosis-related fracture risk >= 20% (i.e., clinical vertebral, hip, forearm, or proximal humerus) based on the [place]-adapted FRAXregistered model. Secondary fracture prevention: * Fracture of the hip or vertebra regardless of BMD [4, 5]. * Fracture of proximal humerus, pelvis, or distal forearm in persons with low bone mass (osteopenia: T-score between - 1.0 and - 2.5). The decision to treat should be individualized in persons with a fracture of the proximal humerus, pelvis, or distal forearm who do not have osteopenia or low BMD [12, 13]. Adolfo MS, Cristian SL, Angel KL, Mukesh EM, Carl KG, AJ, Mickey ES. The clinician's guide to prevention and treatment of osteoporosis. Osteoporos Int. 2021;33(10):2131-0388. doi: 10.1007/r44950-503-43301-v. Epub 2021Nov 25. Erratum in: Osteoporos Int. 2021Feb 24;: PMID: 79419884; PMCID: [id number]. Electronically authenticated by: MARIANA MAHAJAN Date: 02/06/2024 09:34 Dictated By: Mariana Mahajan M.D. Signed By: 02/06/2437 DD/ TD/TT: Checker: Procedure Note Radiology, Radiologist, - 02/06/2024 The [place] [id number] XRay Report Signed Patient: ANAMARIA CAREY LMR#: [id number] : 1955cct:[id number] Age/Sex: 68 / FADM Date: 02/06/24 Loc: MAMMO Attending Dr: Messi Aj D.O. Ordering Physician: Messi Aj D.O. Date of Service: 02/06/24 Procedure(s): XR DEXA axial skeleton Accession Number(s): [id number] cc: Messi Aj D.O.; Gerson Trinidad M.D. The [address] [address] Patient Name: ANAMARIA CAREY MRN: [id number] date: 1955 Sex: F Assigned Patient Location: [facility] Current Patient Location: [facility] Accession/Order Number: [id number] Exam Date: 02/06/2024 09:15 Report Date: 02/06/2024 09:34 At the request of: MESSI AJ Procedure: XR DEXA axial skeleton EXAMINATION: XR DEXA axial skeleton, 02/06/2024 9:15 AM EDT HISTORY: Postmenopausal State COMPARISON: 2021, 2019, 2014, 2010. TECHNIQUE: Dual-energy X-ray absorptiometry (DEXA) bone density study performed for the axial skeleton. FINDINGS: Bone mineral density of the lumbar spine L1-L4 measures 1.156 g/sq cm. Tscore -0.2. Normal. Lowest bone mineral density left femoral trochanter measuring 0.64 g/sqcm. T score -2.0. WHO classification: Osteopenia XR/XR DEXA axial skeleton IMPRESSION: Osteopenia. Moderate fracture risk Pharmacologic treatment recommendations * No uniform recommendation applies to all patients. Management plans mustbe individualized. * Consider initiating pharmacologic treatment in postmenopausal women andmen >= 50 years of age who have the following: Primary fracture prevention: * T-score <= - 2.5 at the femoral neck, total hip, lumbar spine, 33%radius (some uncertainty with existing data) by DXA. * Low bone mass (osteopenia: T-score between - 1.0 and - 2.5) at thefemoral neck or total hip by DXA with a 10-year hip fracture risk >= 3% or t24-gdsm major osteoporosis-related fracture risk >= 20% (i.e., clinical vertebral, hip, forearm, or proximal humerus) based on the US-adapted FRAXregisteredmodel. Secondary fracture prevention: * Fracture of the hip or vertebra regardless of BMD [4, 5]. * Fracture of proximal humerus, pelvis, or distal forearm in persons withlow bone mass (osteopenia: T-score between - 1.0 and - 2.5). The decision totreat should be individualized in persons with a fracture of the proximalhumerus, pelvis, or distal forearm who do not have osteopenia or low BMD [12, 13]. Adolfo MS, Cristian SL, Angel KL, Mukesh EM, Carl KG, AJ,Mickey ES. The clinician's guide to prevention and treatment of osteoporosis.Osteoporos Int. 2021;33(10):2098-2930. doi: 10.1007/w57692-647-71977-s. Ep. Erratum in: Osteoporos Int. 2021Feb 24;: PMID: [id number]; PMCID: [id number]. Electronically authenticated by: MARIANA MAHAJAN Date: 02/06/2024 09:34 Dictated By: Mariana Mahajan M.D. Signed By:02/06/2437 DD/ TD/TT: Checker: us Messi Jean Marie DO [facility] Final Result documented in this encounter Visit Diagnoses Not on filedocumented in this encounter Care Teams Lehr Loader Relationship Specialty Start Date End Date Gerson Trinidad MD [address] [place] [address] PCP - General 01/16/23 documented as of this encounter
--- OUTSIDE RECORDS SUMMARY | 2025-01-29 15:02 | XMS_ITS | Encounter Summary ---
Author Organization [facility] Address [address] [place] [address] Care Team Providers Care Wringer Operator Name Role Phone Gerson Trinidad MD Primary Care Provider [phone] Encounter Details Date Type Department Care Team (Latest Contact Info) Description 01/27/2025 Travel Social History Tobacco Use Types Packs/Day Years [...] [address] [place] [address] Judy Lucas MD [address] [place] [address] 02/03/2026 1:00 PM EDT Office Visit [facility] BCP OB [address] [facility] [place] [address] Junie Conner PA [address] [facility] [place] [address] documented as of this encounter Visit Diagnoses Not on filedocumented in this encounter Care Teams Wringer Operator Relationship Specialty Start Date End Date Gerson Trinidad MD [address] [place] [phone] PCP - General 01/16/23 documented as of this encounter
--- OUTSIDE RECORDS SUMMARY | 2025-01-29 15:02 | XMS_ITS | Patient Health Record ---
Author Organization The [facility] in [place] Address [address] [place] [address] Care Team Providers Care Transportation Broker Name Role Phone Wilmer Trinidad Primary Care Provider Allergies Allergen (clinical drug ingredient) Drug/Non Drug Allergy documented on EMR Reaction Allergy Type Onset Date Status moxifloxacin Avelox hives Drug Allergy Acti ve diphenhydramine Benadryl goofy Drug Allergy A ctive Results Component Value Reference Range Notes MM tomosynthesis screening B I Reviewed date:02/06/2024 02:48:12 PM Interpretation: Performing Lab: Notes/Report: Source Facility: [place] [address] Mammography Report Signed Patient: ANAMARIA CAREY MR#: [id number] : 1955 Acct:[id number] Age/Sex: 68 / F ADM Date: 02/06/24 Loc: MAMMO Attending Dr: Messi Aj D.O. Ordering Physician: Messi Aj D.O. Results: Date of Service: 02/06/24 Follow Up: Procedure(s): MM tomosynthesis screening BI Accession Number(s): [id number] cc: Msesi Aj D.O.; Gerson Trinidad M.D. Patient Name: ANAMARIA CAREY MR#: [id number] : 1955 Exam Date: 02/06/2024 Ordering Doctor: DR Messi Aj . RADIOLOGY REPORT PROCEDURE: MM TOMOSYNTHESIS [...] colon cancer at age 54. LOCATION: [facility] BREAST COMPOSITION: The breasts are almost entirely [...] PALPABLE LUMP SHOULD BE BIOPSIED. Dictated by: Mariana Mahajan MD on 02/06/2024 at 09:55 Approved by: Mariana Mahajan MD on 02/06/2024 at 09:57 Dictated By: Mariana Mahajan M.D. Signed By: 02/06/24 0958 DD/ TD/TT: Tree Warden: [place] [address] Mammography Report Signed Patient: HORTENSIA CAREY MR#: [id number] : 1955 Acct:[id number] Age/Sex: 68 / F ADM Date: 02/06/24 Loc: MAMMO Attending Dr: Messi Aj D.O. Ordering Physician: Messi Aj D.O. Results: Date of Service: 02/06/24 Follow Up: Procedure(s): MM tomosynthesis screening BI Accession Number(s): [id number] cc: Messi Aj D.O. ; Gerson Trinidad M.D. Patient Name: ANAMARIA CAREY MR#: [id number] : 1955 Exam Date: 02/06/2024 Ordering Doctor: DR Messi Aj . RADIOLOGY REPORT PROCEDURE: MM TOMOSYNTHESIS SCREENING BI COMPARISON: MG MAMM SCREEN 3D CARISSA CAD, 01/17/2022. MM TOMOSYNTHESIS SCREENING BI, 01/27/2023. INDICATIONS: Screening Calculator Name NCI Breast Cancer Risk Assessment Tool 5 Year Breast Cancer Risk 1.50% Lifetime Breast Canc er Risk 4.50% Personal Breast Canc er No Personal Ovarian Can cer No Treatments HYSTERECTOMY Family Cancers Grandfather-paternal with colon cancer at age 56. LOCATION: [facility] BREAST COMPOSITION: The breasts are almost entirely fatty. FINDINGS: DIAGNOSTIC CATEGORY 2--BENIGN FINDING. NO CHANGE FROM COMPARISON. Scattered benign-appearing calcifications are present. Scattered benign-appearing lym ph nodes are present. RIGHT BREAST: No significant suspicious finding. LEFT BREAST: No significant suspicious finding. RECOMMENDATIONS: ROUTINE MAMMOGRAM AN D CLINICAL EVALUATION IN 12 MONTHS. PLEASE NOTE: A SHIRLEY L MAMMOGRAM DOES NOT EXCLUDE THE POSSIBILITY OF BREAST CANCER. A CLINICALLY SUSPICIOUS PALPABLE LUMP SHOULD BE BIOPSIED. Dictated by: Mariana Mahajan MD on 02/06/2024 at 09:55 Approved by: Mariana Mahajan MD on 02/06/2024 at 09:57 Dictated By: Mairana Mahajan M.D. Signed By: 02/06/24 0958 DD/ 0957 TD/TT: Tree Warden: XR DEXA axial skeleton Reviewed date:02/06/2024 02:48:12 PM Interpretation: Performing Lab: Notes/Report: Source Facility: [place] [address] XRay Report Signed Patient: ANAMARIA CAREY MR#: [id number] : 1955 Acct:[id number] Age/Sex: 68 / F ADM Date: 02/06/24 Loc: MAMMO Attending Dr: Messi Aj D.O. Ordering Physician: Messi Aj D.O. Date of Service: 02/06/24 Procedure(s): XR DEXA axial skeleton Accession Number(s): [id number] cc: Messi jA D.O.; Gerson Trinidad M.D. [place] [address] Patient Name: ANAMARIA CAREY MRN: [id number] date: 1955 Sex: F Assigned Patient Location: [facility] Current Patient Location: [facility] Accession/Order Number: [id number] Exam Date: 02/06/2024 09:15 Report Date: 02/06/2024 [...] Adolfo MS, Cristian SL, Angel KL, Mukesh NORTH, Carl KG, AJ, Mickey ES. The clinician's guide to prevention and treatment of osteoporosis. Osteoporos Int. 2021;33(10):0787-5038. doi: 10.1007/s12618-506-44739-b. Epub 2021Nov 25. Erratum in: Osteoporos Int. 2021Feb 24;: PMID: 62477617; PMCID: [id number]. Electronically authenticated by: MARIANA MAHAJAN Date: 02/06/2024 09:34 Dictated By: Mariana Mahajan M.D. Signed By: 02/06/24936 DD/ 3 TD/TT: Tree Warden: [place] [address] XRay Report Signed Patient: HORTENSIA CAREY MR#: [id number] : 1955 Acct:[id number] Age/Sex: 68 / F ADM Date: 02/06/24 Loc: MAMMO Attending Dr: Messi Aj D.O. Ordering Physician: Messi Aj D.O. Date of Service: 02/06/24 Procedure(s): XR DEX A axial skeleton Accession Number(s): [id number] cc: Messi Aj D.O. ; Gerson Trinidad M.D. [place] [id number] Patient Name: ANAMARIA CAREY MRN: [id number] date: 1955 Sex: F Assigned Patient Location: [facility] Current Patient Location: [facility] Accession/Order Numb er: [id number] Exam Date: 02/06/2024 09:15 Report Date: 02/06/2024 09:34 At the request of: MESSI AJ Procedure: XR DEXA axial skeleton EXAMINATION: XR DEXA axial skeleton, 02/06/2024 9:15 AM EDT HISTORY: [place] COMPARISON: , 2014, 2010. TECHNIQUE: Dual-ener gy X-ray absorptiometry (DEXA) bone density study performed for the axial skeleton. FINDINGS: Bone mineral density of the lumbar spine L1-L4 measures 1.156 g/sq cm. T score -0.2. Normal. Lowest bone mineral density left femoral trochanter measuring 0.64 g/sq cm. T score -2.0. WHO classification: Osteopenia XR/XR DEXA axial skeleton IMPRESSION: Osteopenia. Moderate fracture risk Pharmacologic treatm ent recommendations * No uniform recommendation applies to all patients. Management plans must be individualized. * Consider initiatin g pharmacologic treatment in postmenopausal women and men >= 50 years of age w ho have the following: Primary fracture prevention: * T-score <= - 2.5 a t the femoral neck, total hip, lumbar spine, 33% radius (some uncertainty wi th existing data) by DXA. * Low bone mass (osteopenia: T-score between - 1.0 and - 2.5) at the femoral neck or total hip by DXA with a 10-year hip fracture risk >= 3% or a 10-year major osteoporosis-related fracture risk >= 20% (i.e., clinical vertebral, hip, forearm, or proximal humerus) based on the US-adapted FRAXregistered model. Secondary fracture prevention: * Fracture of the hi p or vertebra regardless of BMD [4, 5]. * Fracture of proxim al humerus, pelvis, or distal forearm in persons with low bone mass (osteopeni a: T-score between - 1.0 and - 2.5). The decision to treat should be individualized in persons with a fracture of the proximal humerus, pelvis, or distal forearm who do not have osteopenia or low BMD [12, 13]. Adolfo MS, Cristian SL, Angel KL, Mukesh EM, Carl KG, AJ, Mickey ES. The clinician's guid e to prevention and treatment of osteoporosis. Osteoporos Int. 2021;33(10):3427-2229. doi: 10.1007/s49883-408-4282 0-y. Epub 2021Nov 25. Erratum in: Osteoporos Int. 2021Feb 24;: PMID: 06661819; PMCID: [id number]. Electronically authenticated by: MARIANA MAHAJAN Date: 02/06/2024 09:34 Dictated By: Rudi Mahajan M.D. Signed By: 02/06/2437 DD/ TD/TT: Tree Warden: CALCIUM Reviewed date:03/24/2024 09:10:36 PM Interpretation: Performing Lab: Notes/Report: [facility] , Calcium 10.0 8.5-10.1 mg/dL Performing Lab: see note ML - [facility] LB CREATININE Reviewed date:03/24/2024 09:10:36 PM Interpretation: Performing Lab: Notes/Report: [facility] , Creatinine 0.78 0.55-1.02 mg/dL Estimated GFR ( Tea >60 >=60 Estimated GFR (Non- Latoya >60 >=60 Performing Lab: see note ML - [facility] LB CBC AUTO DIFF Reviewed date:10/24/2024 07:19:18 PM Interpretation: Performing Lab: Notes/Report: [facility] , White Blood Count 9.7 4.0-11.0 10 3/uL Red Blood Count 4.45 4.20-5.40 10 6/uL Hemoglobin 13.5 12.0-16.0 g/dL Hematocrit 39.4 36.0-48.0 % Mean Corpuscular Volume 88.5 81.0-99.0 fL Mean Corpuscular Hemoglobin 30.3 26.7-34.0 pg Mean Corpuscular HGB Conc 34.3 29.9-35.2 g/dL Red Cell Distribution Width 12.8 11.0-15.0 % Platelet Count 269 150-450 10 3/uL Mean Platelet Volume 9.8 9.5-13.5 fL Neutrophils Percent Auto 64.9 43.0-75.0 % Lymphocytes Percent Auto 26.0 20.5-60.0 % Monocytes Percent Auto 5.3 1.7-12.0 % Eosinophils Percent Auto 2.5 0.9-7.0 % Basophils Percent Auto 0.7 0.2-2.0 % Immature Granulocytes Pct Auto 0.6 0.0-0.5 % Neutrophils Absolute Auto 6.3 1.4-6.5 10 3/uL Lymphocytes Absolute Auto 2.5 1.2-3.8 10 3/uL Monocytes Absolute Auto 0.5 0.3-0.8 10 3/uL Eosinophils Absolute Auto 0.2 0.0-0.7 10 3/uL Basophils Absolute Auto 0.1 0.0-0.1 10 3/uL Immature Granulocytes Abs Auto 0.06 0.00-0.03 10 3/uL Performing Lab: see note ML - [facility] LB GLYCOHEMOGLOBIN A1C Reviewed date:10/24/2024 07:19:18 PM Interpretation: Performing Lab: Notes/Report: [facility] , Glycohemoglobin A1C 6.3 4.5-6.2 % ADA RECOMMENDED LIMIT 4.0 - 6.0 ADA THERAPEUTIC TARGET < 7.0 ACTION SUGGESTED > 7.0 Estimated Average Glucose 134 Performing Lab: see note ML - [facility] LB CREATININE Reviewed date:09/11/2024 09:21:39 PM Interpretation: Performing Lab: Notes/Report: [facility] , Creatinine 0.90 0.55-1.02 mg/dL Estimated GFR ( Tea >60 >=60 mL/min/1.73m 2 Estimated GFR (Non- Latoya >60 >=60 mL/min/1.73m 2 Performing Lab: see note ML - [facility] LB CALCIUM Reviewed date:09/11/2024 09:21:39 PM Interpretation: Performing Lab: Notes/Report: [facility] , Calcium 10.0 8.5-10.1 mg/dL Performing Lab: see note ML - [facility] LB TSH Reviewed date:10/24/2024 07:19:18 PM Interpretation: Performing Lab: Notes/Report: [facility] , Thyroid Stimulating Hormone 1.703 0.358-3.740 uIU/mL Performing Lab: see note ML - [facility] LB T4 Reviewed date:10/24/2024 07:19:18 PM Interpretation: Performing Lab: Notes/Report: [facility] , T4 Thyroxine 7.80 4.80-13.90 ug/dL Performing Lab: see note [facility] LB PROF 14(COMP METB) Reviewed date:10/24/2024 07:19:18 PM Interpretation: Performing Lab: Notes/Report: [facility] , Sodium 137 136-145 mmol/L Potassium 4.3 3.5-5.1 mmol/L Chloride 101 98-107 mmol/L Carbon Dioxide 27.3 21.0-32.0 mmol/L Anion Gap 13.0 Glucose 123 74-106 mg/dL Blood Urea Nitrogen 20.0 7.0-18.0 mg/dL Creatinine 0.93 0.55-1.02 mg/dL Estimated GFR ( Tea >60 >=60 mL/min/1.73m 2 Estimated GFR (Non- Latoya 59 >=60 mL/min/1.73m 2 BUN Creatinine Ratio 21.5 Calcium 9.7 8.5-10.1 mg/dL Bilirubin Total 0.6 0.2-1.0 mg/dL Aspartate Amino Transferase 20 15-37 U/L Alanine Aminotransferase 32 14-59 U/L Alkaline Phosphatase 48 46-116 U/L Total Protein 7.7 6.4-8.2 g/dL Albumin Level 4.3 3.4-5.0 g/dL Globulin 3.4 Albumin Globulin Ratio 1.3 Performing Lab: see note ML - [facility] LIPID PROFILE Reviewed date:10/24/2024 07:19:18 PM Interpretation: Performing Lab: Notes/Report: [facility] , Triglycerides 138 <=150 mg/dL Cholesterol 202 <=200 mg/dL HDL Cholesterol 68 40-60 mg/dL > or =60 mg/dl - LOW CARDIOVASCULAR RISK <40 mg/dl - HIGH CARDIOVASCULAR RISK LDL Cholesterol Calculated 107.0 <100 mg/dl OPTIMAL 100-129 mg/dl NEAR OR ABOVE OPTIMAL 130-159 mg/dl BORDERLINE HIGH 160-189 mg/dl HIGH >190 mg/dl VERY HIGH VLDL CHOLESTEROL 27.6 Chol HDL Ratio 3.0 3.3 - 4.4 LOW RISK 4.4 - 7.1 AVERAGE RISK 7.1 - 11.0 MODERATE RISK >11.0 HIGH RISK Performing Lab: see note ML - [facility] IRON Reviewed date:10/24/2024 07:19:18 PM Interpretation: Performing Lab: Notes/Report: [facility] , Iron 86.0 50.0-170.0 ug/dL Performing Lab: see note ML - [facility] FREE T3 Reviewed date:10/24/2024 07:19:18 PM Interpretation: Performing Lab: Notes/Report: [facility] Free T3 2.39 2.18-3.98 pg/mL Performing Lab: see note ML - [facility] Reason For Referral Diagnosis 1 Screening for colon cancer (Z12.11) Referral Organization [facility] Medicine Referring Provider First Name Wilmer Referring Provider Last Name Vivi Referring Provider Speciality Family Med fabiana Referred Provider Kory Arteaga Referred Provider Specialty General Surg janet Referral Priority Routine Medications Medication SIG (Take, Route, Frequency, Duration) Notes Start Date End Date Status Diclofenac Sodium 75 MG TAKE 1 TABLET BY MOUTH TWICE A DAY for 30 days Active Pantoprazole Sodium 40 MG TAKE 1 TABLET BY MOUTH EVERY DAY for 90 Active Irbesartan 150 MG TAKE 1 TABLET BY MYLENE TH EVERY DAY FOR 30 DAYS for 90 Active Simvastatin 20 MG TAKE 1 TABLET BY MYLENE TH EVERY DAY for 90 Active Desvenlafaxine Succinate ER 25 MG TAKE 1 TABLET BY MOUTH EVERY DAY FOR 90 DAYS for 90 Active Ezetimibe 10 mg TAKE 1 TABLET BY MYLENE TH ONCE DAILY for 30 Active Prolia 60 MG/ML as directed Subcutaneous Active Multivitamin Active Montelukast Sodium 10 MG TAKE 1 TABLET B Y MOUTH EVERY DAY for 90 Active OneTouch Ultra - USE TO TEST BLOOD BEARD GAR DAILY DX: E11.9 for 90 days Active OneTouch Delica Plus [id number] - USE TO TEST DAILY *DX E11.9* for 90 Active Immunizations Vaccine Route Administration Date Status Comme nts Comirnaty Pfizer Syringe Pre -Filled 30 mcg/0.3 mL Unknown 07/04/2023 Administered Comirnaty Pfizer Syringe Pre -Filled 30 mcg/0.3 mL Unknown 08/15/2024 Administered Pneumococcal (Pneumovax 23) Unknown 09/17/2021 Administ ered Pneumococcal (Prevnar 13) Unknown 05/15/2020 Administer ed SARS-COV-2 (COVID 19 Pfizer 30mcg/0.3mL) Unknown 09/09/2020 Administered SARS-COV-2 (COVID 19 Pfizer 30mcg/0.3mL) Unknown 09/30/2020 Administered SARS-COV-2 (COVID 19 Pfizer 30mcg/0.3mL) Unknown 05/18/2021 Administered SARS-COV-2 (COVID 19) bivale nt 30 mcg/0.3 ml dose Unknown 06/21/2022 Administered Shingrix (Zoster) Unknown 05/15/2023 Administered Social History Tobacco Use: Social History Observation Description Date Details (start date - stop date) Former Smoker 07/31/1971 - 07/31/1988 Tobacco Use/Smoking Question Answer Notes Patient is a former smoker When did you start smoking? 07/31/1971 When did you stop smoking? 07/31/1988 How long has it been since you last smoked? > 10 years Alcohol Screen (Audit-C) Question Answer Notes Did you have a drink contain ing alcohol in the past year? Yes How often did you have 6 or more drinks on one occasion in the past year? Never (0 point) How many drinks did you have on a typical day when you were drinking in the past year? 1 or 2 drinks (0 point) How often did you have a dri nk containing alcohol in the past year? Daily or almost daily (4 points) Points 4 Interpretation Positive AUDIT-C (Standard) Question Answer Notes Did you have a drink containing alcohol in the p ast year? No Points 0 Interpretation Negative Problems Problem Type SNOMED Code ICD Code Onset Dates Problem Status W/U Status Risk Notes Problem Gastro-esophage al reflux disease without esophagitis (856014532) Gastro-esophageal reflux disease without esophagitis (K21.9) Active confirmed Problem Hypertension (39534373) Hypertension (I10) Active confirmed Problem Hypercholesterem ia (E78.00) Active confirmed Problem Type II diabetes mellitus without complication (858312972) Diabetes (E11.9) Active confirmed Vital Signs Blood pressure diastolic 64 mm Hg 10/24/2024 Height 67 in 10/24/2024 Blood pressure systolic 128 mm Hg 10/24/2024 Weight 158.9 lbs 10/24/2024 BMI 24.88 kg/m2 10/24/2024 Encounters Encounter Location Date Provider Diagnosis [address] [address] 08/21/2024 Wilmer Trinidad [facility] [address] [place] [id number] 10/24/2024 Wilmer Trinidad Screening for colon cancer Z12.[address] [address] 01/02/2025 Wilmer Trinidad [place] [id number] [place] [address] 10/24/2024 Wilmer Trinidad Gastro-esophageal re flux disease without esophagitis K21.9 ; Hypercholesteremia E78.00 ; Hypertension I10 and Diabetes E11.9 Assessments Encounter Date Diagnosis (ICD Code) Assessment Notes Treatment Notes Treatment Clinical Notes Section Notes 10/24/2024 Gastro-esophageal reflux disease without esophagitis (ICD-10 - K21.9) 10/24/2024 Hypercholesteremia (ICD-10 - E78.00) 10/24/2024 Screening for colon cancer (ICD-10 - Z12.11) 10/24/2024 Hypertension (ICD-10 - I10) 10/24/2024 Diabetes (ICD-10 - E11.9) Plan Of Treatment Pending Test Test Name Order Date CMP (COMPLETE METABOLIC PANEL) 4 HEMOGLOBIN A1C (GLYCO) 10/24/2024 HEMOGLOBIN A1C (GLYCO) 10/04/2023 IRON, TOTAL 10/24/2024 IRON, TOTAL 10/04/2023 LIPID PANEL (CHOL/TRIG/HDL/LDL) 10/04/19 24 LIPID PANEL (CHOL/TRIG/HDL/LDL) 10/25/19 25 CBC WITH DIFF 10/04/2023 VITAMIN D, 25 LEVEL (TOTAL) 10/04/2023 THYROID PANEL (T4/TSH/FREE T3) 4 THYROID PANEL (T4/TSH/FREE T3) 5 CMP (COMP MET HORN) w/eGFR CKD-EPI 2024 CBC WITH DIFF 10/24/2024 Insurance Providers Payer Name Payer Address Payer Phone Subscriber Number Group Number Insured Name Patient Relationship to Insured Coverage Start Date Coverage End Date [place]ICARE [place] [address] [address] [id number] Anamaria Carey Self - patient is the insured O MEDICARE SUPPLE[employer] T [address] [place] [address] [id number] Anamaria Carey Self - patient is the insured Medical (General) History Medical History History ICD Code Anxiety F41.9 Diverticulitis K57.92 Hypercholesterolemia E78.00 Insomnia G47.00 Internal derangement of knee, right M23. 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
--- OUTSIDE RECORDS SUMMARY | 2025-01-29 15:02 | XMS_ITS | Clinical Summary ---
Author Organization [facility] Address [address] [place] [address] Care Team Providers Care Candy Supervisor Name Role Phone Gerson Trinidad MD Primary Care Provider [phone] Allergies Active Allergy Reactions Criticality Noted Date Comments Diphenhydramine 05/20/2024 Other Reaction(s): goofy Moxifloxacin 05/20/2024 Other Reaction(s): hives Propofol Other 01/29/2025 Nausea and vomitting Medications MULTIPLE VITAMIN IV Multiple Vitamin Ac tive calcium 200 MG tablet Calcium Active desvenlafaxine succinate ER (Pristiq) 25 MG 24 hour tablet 1 (one) time each day at the same time. Active alendronate (Fosamax) 70 MG tablet Fosamax Active Simvastatin 20 MG/5ML suspension Simvastatin Active montelukast (Singulair) 4 MG chewable tablet Singulair Active cyanocobalamin (Vitamin B-12) 100 MCG tablet Vitamin B12 Act santos pantoprazole (ProtoNix) 40 MG EC tablet Take 40 mg by mouth in the morning. Take before meals. Do not crush, chew, or split. . Active diclofenac (Voltaren) 75 MG EC tablet Take 75 mg by mouth in the morning and 75 mg before bedtime. Do not crush, chew, or split. . Active ergocalciferol (Vitamin D-2) 200 MCG/ML drops Take 100 mcg by mouth in the morning. Active estradiol (Estrace) 0.1 MG/GM vaginal cream Insert 2 g into the vagina in the morning. Active lisinopril 10 MG tablet Take 10 mg by mouth Daily Active Lancets (OneTouch Delica Plus Xemhok06T) misc USE TO TEST ONCE DAILY *E11.9* Active irbesartan (Avapro) 150 MG tablet Take 150 mg by mouth Daily Active OneTouch Ultra test strip USE DIRECTED TO TEST BLOOD SUGAR DAILY *DX: E11.9* Active ezetimibe (Zetia) 10 MG tablet Take 10 mg by mouth Daily Active Active Problems Problem Noted Date Diagnosed Date Personal history of other malignant neoplasm of skin 01/11/2023 Encounters Date Type Department Care Team Description 01/29/2025 1:00 PM EDT Office Visit [facility] [address] [facility] [address] Jairo Aj DO Well woman exam with routine gynecological exam; Encounter for screening mammogram for malignant neoplasm of breast; Postmenopausal state 01/29/2025 Bamboo flowsheet [facility] [address] [place] [address] Jairo Aj DO 01/27/2025 Travel from Last 3 Months Family History Medical History Relation Name Comments Diabetes Brother Brother Cancer Father Father Diabetes Maternal Grandmother Grandmother Diabetes Mother Mother Melanoma Neg Hx Relation Name Status Comments Brother Brother Father Father Maternal Grandmother Grandmother Mother Mother Social History Tobacco Use Types Packs/Day Years Used Date Smoking Tobacco: Former Cigarettes Smokeless Tobacco: Never Tobacco Cessation:Counseling Given: Not Answered Alcohol Use Standard Drinks/Week Comments Yes 2 (1 standard drink = 0.6 oz pur e alcohol) Comments Unknown Sex and Gender Information Value Date Recorded Sex Assigned at Female 01/10/2023 7:57 PM EDT Legal Sex Female 6:45 PM EDT Gender Identity Female 01/10/2023 7:57 PM EDT Sexual Orientation Asexual 01/10/2023 7: 57 PM EDT Last Filed Vital Signs Vital Sign Reading Time Taken Comments Blood Pressure 122/50 01/29/2025 1:14 PM EDT Pulse - - Temperature - - Respiratory Rate - - Oxygen Saturation - - Inhaled Oxygen Concentration - - Weight 70.2 kg (154 lb 12 oz) 01/29/2025 1:14 PM EDT Height 167.6 cm (5' 6 ) 01/29/2024 1:10 PM EDT Body Mass Index 24.98 01/29/2024 1:10 PM EDT Plan of Treatment Upcoming Encounters Date Type Department Care Team (Late st Contact Info) Description 06/04/2025 10:45 AM EST Office Visit [facility] [address] [place] [address] Judy Lucas MD [address] [place] [address] 02/03/2026 1:00 PM EDT Office Visit [facility] [address] [facility] [place] [address] Junie Conner PA [address] [facility] [place] [address] Health Maintenance Due Date Last Done Comments CT Colonography 1955 FIT-DNA 1955 FIT 1955 FOBT 1955 Sigmoidoscopy 1955 Mammogram 02/05/2025 02/06/2024 Influenza Vaccine (#1) 2025 4, 06/21/2023, 06/14/2022, Additional history exists Colonoscopy 07/05/2027 07/05/2017 Colorectal Cancer Screening 07/05/2027 Pneumococcal Vaccine: 65+ Years Completed 2, 05/15/2020 Procedures Procedure Name Priority Date/Time Associated Diagnosis Comments MM TOMOSYNTHESIS SCREENING BI 02/06/2024 9:57 AM EDT from Last 3 Months or Most Recently Relevant to Health Maintenance Results * MM TOMOSYNTHESIS SCREENING BI (02/06/2024 9:57 AM EDT) Anatomical Region Laterality Modality Other 02/06/2024 9:57 AM EDT Narrative 02/06/2024 9:58 AM EDT The [address] [address] Mammography Report Signed Patient: ANAMARIA CAREY MR#: [id number] : 1955 Acct:[id number] Age/Sex: 68 / F ADM Date: 02/06/24 Loc: MAMMO Attending Dr: Jairo Aj D.O. Ordering Physician: Jairo Aj D.O. Results: Date of Service: 02/06/24 Follow Up: Procedure(s): MM tomosynthesis screening BI Accession Number(s): [id number] cc: Jairo Aj D.O.; Gerson Trinidad M.D. Patient Name: ANAMARIA CAREY MR#: [id number] : 1955 Exam Date: 02/06/2024 Ordering Doctor: [...] colon cancer at age 54. LOCATION: The [facility] BREAST COMPOSITION: The breasts are almost entirely [...] Wilder Kerr M.D. Signed By: 02/06/2458 DD/ 6 TD/TT: Construction Laborer: Procedure Note Radiology, Radiologist, - 02/06/2024 [place] [address] Mammography Report Signed Patient: ANAMARIA CAREY LMR#: [id number] : 4Acct:[id number] Age/Sex: 68 / FADM Date: 02/06/24 Loc: MAMMO Attending Dr: Jairo Aj D.O. Ordering Physician: Jairo Aj D.O.Results: Date of Service: 02/06/24Follow Up: Procedure(s): MM tomosynthesis screening BI Accession Number(s): [id number] cc: Jairo Aj D.O.; Gerson Trinidad M.D. Patient Name: ANAMARIA CAREY MR#: [id number] : 1955 Exam Date: 02/06/2024 Ordering Doctor: [...] colon cancer at age 54. LOCATION: The [facility] BREAST COMPOSITION: The breasts are almost entirely [...] Kerr M.D. Signed By:02/06/24957 DD/ 6 TD/TT: Construction Laborer: Jairo Aj DO [facility] Final Result from Last 3 Months or Most Recently Relevant to Health Maintenance Insurance [employer] Care Teams Candy Supervisor Relationship Specialty Start Date End Date Gerson Trinidad MD [address] [facility] [place] [phone] PCP - General 01/16/23
--- OUTSIDE RECORDS SUMMARY | 2025-01-29 15:02 | XMS_ITS | Encounter Summary ---
Author Organization [facility] Address [address] [place] [address] Care Team Providers Care Border Police Name Role Phone Gerson Trinidad MD Primary Care Provider [phone] Encounter Details Date Type Department Care Team (Late st Contact Info) Description 02/05/2024 Orders Only [facility] OB [address] [facility] [place] [address] Alona Kevin MA [address] [facility] [place] [address] Social History Tobacco Use Types Packs/Day Years [...] [facility] [address] [place] [address] Judy Lucas MD [address] [place] [address] 02/03/2026 1:00 PM EDT Office Visit [facility] OB [address] [facility] [place] [address] Junie Conner PA [address] [place] [address] [place] [address] documented as of this encounter Procedures Procedure Name Priority Date/Time Associated Diagnosis Comments PAP SMEAR Routine 01/29/2024 12:00 AM EDT documented in this encounter Results * Pap Smear (01/29/2024 12:00 AM EDT) Swab Cervical swab / Unknown us Jairo Jean Marie DO LAB CYTOLOGY ORDERABLES Final Re sult EXTERNAL LAB documented in this encounter Visit Diagnoses Not on filedocumented in this encounter Care Teams Border Police Relationship Specialty Start Date End Date Gerson Trinidad MD [address] [facility] [place] [address] PCP - General 01/16/23 documented as of this encounter
--- OUTSIDE RECORDS SUMMARY | 2025-01-29 15:02 | XMS_ITS | Encounter Summary ---
Author Organization [facility] Address [address] [place] [address] Care Team Providers Care Bridges And Buildings Supervisor Name Role Phone Gerson Trinidad MD Primary Care Provider [phone] Encounter Details Date Type Department Care Team (Late st Contact Info) Description 02/07/2024 Abstract [facility] [address] [facility] [place] [address] Jairo Aj, [address] [facility] [address] [place], [place] [id number] Social History Tobacco Use Types Packs/Day Years [...] [address] [place] [phone] Judy Lucas MD [address] [place] [address] 02/03/2026 1:00 PM EDT Office Visit [facility] [address] [facility] [place] [address] Junie Conner PA [address] [facility] [place] [address] documented as of this encounter Visit Diagnoses Not on filedocumented in this encounter Care Teams Bridges And Buildings Supervisor Relationship Specialty Start Date End Date Gerson Trinidad MD [address] [facility] [place] [address] PCP - General 01/16/23 documented as of this encounter
--- OUTSIDE RECORDS SUMMARY | 2025-01-29 15:02 | XMS_ITS | Encounter Summary ---
Author Organization [facility] Address [address] [place] [address] Care Team Providers Care Plate Furnace Operator Name Role Phone Gerson Trinidad MD Primary Care Provider [phone] Encounter Details Date Type Department Care Team (Late st Contact Info) Description 02/19/2024 Abstract [facility] [address] [facility] [place] [address] Marcy Davenport LPN Social History Tobacco Use Types Packs/Day Years [...] [address] [place] [phone] Judy Lucas MD [address] [place] [id number] 02/03/2026 1:00 PM EDT Office Visit [facility] [address] [facility] [place] [address] Junie Conner PA [address] [place] [address] [place] [address] documented as of this encounter Visit Diagnoses Not on filedocumented in this encounter Care Teams Plate Furnace Operator Relationship Specialty Start Date End Date Gerson Trinidad MD [address] [facility] [place] [phone] PCP - General 01/16/23 documented as of this encounter
[2025-02-03 14:08] LABS: Age Gdln ACOG Testing Note (.); Pap IG (Image Guided) Note (.)
== END 2025-01-29 14:59 | disposition home or self-care (01) ==
LOC: LAB 14:58
PROVIDERS: PCP Family Medicine; Visit Provider Obstetrics & Gynecology
DX: Z01.419 Encounter for gynecological examination (general) (routine) without abnormal findings (principal)
CPT/HCPCS: 88175

== ENCOUNTER 2025-04-25 12:59 | Outpatient (OUT) | payer MEDICARE, OTHER, SELFPAY ==
--- NOTE | 2025-04-25 13:06 | MM_ITS ---
Patient Name: MELODIE WALLACE MR#: [id number] : 1955 Exam Date: 04/25/2025 Ordering Doctor: DR MESSI BEYER . RADIOLOGY REPORT PROCEDURE: MM TOMOSYNTHESIS SCREENING BI COMPARISON: MM TOMOSYNTHESIS SCREENING BI, 02/06/2024. MM TOMOSYNTHESIS SCREENING BI, 01/27/2023. MG MAMM SCREEN 3D CARISSA CAD, 01/17/2022. MG MAMM CARISSA SCRN W CAD DIG, 04/23/2013. INDICATIONS: Screening Calculator Name NCI Breast Cancer Risk Assessment Tool 5 Year Breast Cancer Risk 1.60% Lifetime Breast Cancer Risk 4.30% Personal Breast Cancer No Personal Ovarian Cancer No Treatments HYSTERECTOMY Family Cancers Grandfather-paternal with colon cancer at age 56. LOCATION: The [facility] BREAST COMPOSITION: The breasts are almost entirely fatty. FINDINGS: RIGHT BREAST: No significant suspicious finding. Benign-appearing calcifications are present. Benign-appearing lymph nodes are noted along the chest wall. LEFT BREAST: No significant suspicious finding. Benign-appearing calcifications are present. Benign-appearing lymph nodes are noted along the chest wall. DIAGNOSTIC CATEGORY 2--BENIGN FINDING: RECOMMENDATIONS: ROUTINE MAMMOGRAM AND CLINICAL EVALUATION IN 12 MONTHS. Dictated by: Emmanuel Harkins MD on 04/25/2025 at 17:38 Approved by: Emmanuel Harkins MD on 04/25/2025 at 17:41
--- OUTSIDE RECORDS SUMMARY | 2025-04-25 13:06 | XMS_ITS | CCD ---
Author Organization [facility] Clini[facility] Care Team Providers Care Cnc Wood Lathe Operator Name Role Phone IVONNE ., DR CHURCHILL Primary Care Unavailable HOY ., DR CHURCHILL Admitting Unavailable HOY ., DR CHURCHILL Attending Unavailable HOY ., DR CHURCHILL Primary Care Unavailable HOY ., DR CHURCHILL Admitting Unavailable HOY ., DR CHURCHILL Attending Unavailable HOY ., DR CHURCHILL Consulting Unavailable ZIEBER, DR ARUN Clinton Consulting Unavailable JEAN MARIE ., DR SWENSON Admitting Unavailable HOY ., DR CHURCHILL Primary Care Unavailable JEAN MARIE ., DR SWENSON Consulting Unavailable JEAN MARIE ., DR SWENSON Attending Unavailable JEAN MARIE ., DR SWENSON Attending Unavailable HOY ., DR CHURCHILL Primary Care Unavailable JEAN MARIE ., DR SWENSON Consulting Unavailable JEAN MARIE ., DR SWENSON Admitting Unavailable ZIEBER, DR ARUN Clinton Consulting Unavailable JEAN MARIE ., DR [...] ., DR CHURCHILL Consulting Unavailable ZIEBER, DR ARUN Clinton Consulting Unavailable Zhao Trinidad MD Primary Care Provider [phone] Zhao Trinidad MD Primary Care Provider [phone] ZHAO TRINIDAD Primary Care Unavailable NICKI V, IDANIA Attending Unavailable NICKI V, IDANIA Referring Unavailable NICKI V, IDANIA Admitting Unavailable NICKI V, IDANIA Attending Unavailable SELF Referring Unavailable ZHAO TRINIDAD Primary Care Unavailable IVONNE ZHAO Cindy Primary Care Unavailable NICKI V, IDANIA Referring Unavailable IVONNE ZHAO M Primary Care Unavailable NICKI V, IDANIA Referring Unavailable ZHAO TRINIDAD Primary Care Unavailable NICKI V, IDANIA Referring Unavailable MARKTerese ZHAO M Primary Care Unavailable NICKI V, IDANIA Attending Unavailable NICKI V, IDANIA Referring Unavailable NICKI V, IDANIA Admitting Unavailable Zhao Trinidad MD Primary Care Provider [phone] Kory JARRETT Attending Unavailable Zhao Trinidad Referring Unavailable Kory JARRETT Attending Unavailable Zhao Trinidad MD Primary Care Provider [phone] JAIRO AJ Attending Unavailable HI POST Attending Unavailable Allergies Allergy Classification Reported Allergen(s) Allergy Type Date of Onset Reaction(s) Facility (7 sources) diphenhydrAMINE Drug Allergy 4 [facility] (7 sources) moxifloxacin Drug Allergy 4 [facility] (1 source) diphenhydrAMINE; Translations: [Benadryl] Drug Allergy [facility] Repository (1 source) moxifloxacin; Translations: [Avelox] Drug Allergy [facility] Repository (1 source) No Known Medication Allergies; Translations: [No Known Medication Allergies] Propensity to adverse reactions (disorder) [facility] Repository (3 sources) Propofol Drug Allergy 5 Other [facility] Medications Current Medications Medication Drug Class(es) Dates Sig (Normalized) Sig (Original) alendronic acid 70 mg oral tablet (11 sources) Bisphosphonate Start: 08-18-2023 take 1 tablet by mouth every week alendronate (FOSAMAX) 70 mg tablet Take 1 tablet by mouth one time a week. 0 08/18/2023 Active Comment on above: Take 1 tablet by luke one time a week. Calcium (8 sources) Phosphate Binder, Calcium calcium 200 MG tablet Calcium Active 24 hr desvenlafaxine succinate 25 mg extended release oral tablet (11 sources) Serotonin and Norepinephrine Reuptake Inhibitor Start: 08-24-2023 take 1 tablet by mouth once desvenlafaxine ER (PRISTIQ) 25 mg 24 hr tablet Take 1 tablet by mouth every afternoon. 0 08/24/2023 Active Comment on above: Take 1 tablet by luke th every afternoon. diclofenac sodium 75 mg delayed release oral tablet (11 sources) Nonsteroidal Anti-inflammatory Drug Start: 09-19-2023 take 1 tablet by mouth every twelve hours diclofenac, EC, (VOLTAREN) 75 mg EC tablet Take 1 tablet by mouth every 12 hours. 0 09/19/2023 Active Comment on above: Take 1 tablet by luke th every 12 hours. ergocalciferol 0.2 mg/ml oral solution (8 sources) Provitamin D2 Compound take 100 ug by mouth in the morning ergocalciferol (Vitamin D-2) 200 MCG/ML drops Take 100 mcg by mouth in the morning. Active estradiol 0.1 mg/ml vaginal cream (11 sources) Estrogen estradiol (Estra ce) 0.1 MG/GM vaginal cream Insert 2 g into the vagina in the morning. Active Comment on above: Use 2 g vaginally. ezetimibe 10 mg oral tablet (10 sources) Dietary Cholesterol Absorption Inhibitor Start: 08-24-2023 take 1 tablet by mouth once ezetimibe (ZETIA) 10 mg tablet Take 1 tablet by mouth every afternoon. 0 08/24/2023 Active Comment on above: Take 1 tablet by luke th every afternoon. irbesartan 150 mg oral tablet (10 sources) Angiotensin 2 Receptor Cristian Start: 2023 irbesartan (AVAPRO) 150 mg tablet lisinopril 10 mg oral tablet (7 sources) Angiotensin Converting Enzyme Inhibitor Start: 09-11-2023 take 1 tablet by mouth once daily lisinopril 10 MG tablet Take 10 mg by mouth Daily 09/11/2023 Active montelukast 10 mg oral tablet (11 sources) Leukotriene Receptor Antagonist Start: 07-13-2023 take 1 tablet by mouth once montelukast (SINGULAIR) 10 mg tablet Take 1 tablet by mouth every afternoon. 0 07/13/2023 Active montelukast (Sin gulair) 4 MG chewable tablet Singulair Active Comment on above: Take 1 tablet by luke th every afternoon. MULTIPLE VITAMIN IV (8 sources) MULTIPLE VITAMIN IV Multiple Vitamin Active pantoprazole 40 mg delayed release oral tablet (14 sources) Proton Pump Inhibitor Start: 3 End: 4 take 1 tablet by mouth once pantoprazole DR (PROTONIX) 40 mg tablet Take 1 tablet by mouth every afternoon. 0 07/12/2023 Active Comment on above: Take 1 tablet by luke th every afternoon. simvastatin 20 mg oral tablet (11 sources) HMG-CoA Reductase Inhibitor Start: take 1 tablet by mouth once simvastatin (ZOCOR) 20 mg tablet Take 1 tablet by mouth every afternoon. 0 08/24/2023 Active Simvastatin 20 M G/5ML suspension Simvastatin Active Comment on above: Take 1 tablet by luke th every afternoon. vitamin b12 0.1 mg oral tablet (11 sources) Vitamin B12 cyanocobalamin ( Vitamin B-12) 100 MCG tablet Vitamin B12 Active Comment on above: Vitamin B12 Problems Active Problems Problem Classification Problem Date Documented Date Episodic/Chronic Cataract (3 sources) Bilateral senile combined [...] conditions (not mental disorders or infectious disease) (15 sources) Encounter for screening for malignant neoplasm [...] unspecified; Translations: [INSOMNIA UNSPECIFIED] Onset: 10-22-2022 Episodic Residual codes; unclassified (2 sources) Postmenopausal state; Translations: [Asymptomatic menopausal state] 01-29-2025 Episodic Retinal detachments; defects; vascular occlusion; and [...] 01-19-2022 Episodic Other non-epithelial cancer of skin (10 sources) History of malignant neoplasm of skin; [...] Test Name Value Interpretation Reference Range Facility IGP,APTIMA HPV,AGE GDLNon AGE GDLN ACOG TESTING Note . [facility] Comment on above: TESTS RESULT FLAG UN ITS REF RANGE LAB Clinician Provided Cytology Information Source.............Vagina No. of containers..01 ThinPrep Vial Age Algo ACOG Vivian... Note 01 <21 or >65 or no age provided FLAG LEGEND: L-Low Normal,H-High Normal,LL-Alert Low,HH-Alert High <-Panic Low,>-Panic High,A-Abnormal,AA-Critical Abnormal Performed at: 01 =G [address] [address] Jahaira Lovelace MD, PAP IG (IMAGE GUIDED) Note . [facility] Comment on above: TESTS RESULT FLAG UN ITS REF RANGE LAB DIAGNOSIS: 02 NEGATIVE FOR INTRAEPITHELIAL LESION OR MALIGNANCY. CELLULAR CHANGES ASSOCIATED WITH ATROPHY ARE PRESENT. Specimen adequacy: 02 Satisfactory for evaluation. Performed by: 02 Argelia Cam Herb Counselor ([facility]) . 02 Note: Note 03 The Pap smear is a screening test designed to aid in the detection of premalignant and malignant conditions of the uterine cervix. It is not a diagnostic procedure and should not be used as the sole means of detecting cervical cancer. Both false-positive and false-negative reports do occur. Test Methodology: Note 03 This liquid based ThinPrep(R) pap test was screened with the use of an image guided system. FLAG LEGEND: L-Low Normal,H-High Normal,LL-Alert Low,HH-Alert High <-Panic Low,>-Panic High,A-Abnormal,AA-Critical Abnormal Performed at: 02 [facility] [address] [place] [address] Berto Zimmerman MD, [address] [facility] [address] [address] Jahaira Lovelace MD, Performed at: =G - [facility] [address] [id number] Treating Engineer: Jahaira Lovelace MD, Phone: [phone] Performed at: [facility] [address] [place], [place] [id number] Treating Engineer: Berto Zimmerman MD, Phone: [phone] [facility] Reminderson 12-02-2024 Reminders Reminders From: Chrissy Pittman LPN To: GSN - Clinical; Sent: 12/02/2024 08:13:44 EDT Show up: 10/27/2029 07:00:00 EDT Subject: colonoscopy recall Due Date/Time: 11/27/2029 07:00:00 EDT Reminder/Recall Patient due for surveillance colonoscopy 11/27/2029 due to family history of colon cancer. Normal [facility] Laboratory - Chemistry and C hemistry - challengeon 09-11-2024 Calcium [Mass/Vol] 10 mg/dL 8.5 - 10. 1 mg/dL [facility] Creatinine [Mass/Vol] 0.9 mg/dL 0.55 - 1.02 mg/dL [facility] GFR/1.73 sq M.predicted CKD-EPI (S/P/Bld) [Vol rate/Area] >60 >=60 mL/min/1.73m 2 [facility] No Panel Informationon 09-11 [facility] EGFR-NON AF [place] >60 >=60 mL/min/1.73m 2 [facility] CLINISYNC [facility] No Panel Informationon 05-20 [facility] ANES POSTPROC EVALon 024 ANES POSTPROC EVAL HNO ID: [id number] Author: ELMER BANERJEE MD Service: Anesthesiology Author Type: Anesthesiologist Type: Anesthesia Postprocedure Evaluation Filed: 01/03/2024 12:50 Note Text: POST ANESTHESIA EVALUATION NOTE : 1955 Procedure Summary Date: 01/03/24 Room / Location: [address] Anesthesia Start: 1216 Anesthesia Stop: 1238 Procedures: PHACOEMULSIFICATION CATARACT IMPLANT INTRAOCULAR LENS W/O ENDOSCOPIC CYCLOPHOTOCOAGULATION (Right: Eye) OPHTHALMIC BIOMETRY BY PARTIAL COHERENCE INTERFEROMETRY W/INTRAOCULAR LENS POWER CALCULATION (Right: Eye) Diagnosis: Combined forms of age-related cataract of both eyes (Combined forms of age-related cataract of both eyes [H25.813]) Surgeons: Idania Moreno V, MD Responsible Provider: Elmer Banerjee MD Anesthesia Type: MAC ASA Status: [...] of care. Anesthesia Observations No Documentation SIGNATURE: Elmer Banerjee MD PATIENT NAME: Anamaria Carey DATE: January 03, 2024 TIME: 12:50 PM CSN: [id number] Normal [facility] ANES PRE-OPon 01-03-2024 ANES PRE-OP HNO ID: [id number] Author: ELMER BANERJEE MD Service: Anesthesiology Author Type: Anesthesiologist Type: Anesthesia Preprocedure Evaluation Filed: 01/03/2024 12:14 Note Text: ANESTHESIOLOGY DAY OF SURGERY NOTE : 1955 Procedure Information Date/Time: 01/03/24 1145 Procedures: PHACOEMULSIFICATION CATARACT IMPLANT INTRAOCULAR LENS W/O ENDOSCOPIC CYCLOPHOTOCOAGULATION (Right: Eye) OPHTHALMIC BIOMETRY BY PARTIAL COHERENCE INTERFEROMETRY W/INTRAOCULAR LENS POWER CALCULATION (Right: Eye) Location: [address] Surgeons: Idania Moreno V, MD Estimated [...] a current smoker. NPO Status: adequate Beta Cristian Monitoring Plan Monitoring plan: standard ASA. Post Procedure Analgesic Plan Postoperative analgesic plan: multimodal analgesia. Informed Consent Anesthetic risks, benefits, alternatives, personnel and consent discussed: yes. Patient / Responsible Green Party agrees to proceed: yes Patient / Surrogate [...] tablet by mouth one time a week. [employer] ULTRA TEST test strip USE TO TEST [...] I h (more content not included)... Normal [facility] OPERATIVE NOon 01-03-2024 OPERATIVE NO HNO ID: [id number] Author: IDANIA MORENO MD Service: Ophthalmology Author Type: Physician Type: Operative Report Filed: 01/03/2024 12:34 Note Text: OPERATIVE REPORT DATE OF SERVICE: January 03, 2024 PRIMARY SURGEON: Idania Moreno M.D. CLARIFIER: None [Any nurse listed as assisting or [...] the Intraocular lens consignment, in accordance with [facility] intraocular lens verification policy. Nasal oxygen [...] corneal incision was created temporally with a Gambell blade then a 2.4 mm keratome. The [...] Implant Name Type Inv. Item Serial No. Social Sciences Research Scientist Lot No. LRB No. Used Action Model No. CC60WF.255 [employer] - [id number] Intraocular Lens [id number] [employer] [id number] [employer] [facility] Right 1 Implanted [id number] [...] 12:33 PM - Comanage with Dr Cody; [facility]1 Idania MORENO MD [facility] ANES POSTPROC EVALon 024 ANES POSTPROC EVAL HNO ID: [id number] Author: SADIQ MELGAR II, DO Service: Anesthesiology Author Type: Anesthesiologist Type: Anesthesia Postprocedure Evaluation Filed: 12/20/2023 13:11 Note Text: POST ANESTHESIA EVALUATION NOTE : 1955 Procedure Summary Date: 12/20/23 Room / Location: [address] Anesthesia Start: 1116 Anesthesia Stop: 1135 Procedures: PHACOEMULSIFICATION CATARACT IMPLANT INTRAOCULAR LENS W/O ENDOSCOPIC CYCLOPHOTOCOAGULATION (Left: Eye) OPHTHALMIC BIOMETRY BY PARTIAL COHERENCE INTERFEROMETRY W/INTRAOCULAR LENS POWER CALCULATION (Left: Eye) Diagnosis: Combined forms of age-related cataract of both eyes (Combined forms of age-related cataract of both eyes [H25.813]) Surgeons: Idnaia Moreno V, MD Responsible Provider: Sadiq Melgar [...] December 20, 2023 TIME: 1:11 PM CSN: [id number] Normal [facility] ANES PRE-OPon 12-20-2023 ANES PRE-OP HNO ID: [id number] Author: SADIQ MELGAR II, DO Service: Anesthesiology Author Type: Anesthesiologist Type: Anesthesia Preprocedure Evaluation Filed: 12/20/2023 10:31 Note Text: ANESTHESIOLOGY DAY OF SURGERY NOTE : 1955 Procedure Information Date/Time: 12/20/23 1025 Procedures: PHACOEMULSIFICATION CATARACT IMPLANT INTRAOCULAR LENS W/O ENDOSCOPIC CYCLOPHOTOCOAGULATION (Left: Eye) OPHTHALMIC BIOMETRY BY PARTIAL COHERENCE INTERFEROMETRY W/INTRAOCULAR LENS POWER CALCULATION (Left: Eye) Location: [address] Surgeons: Idania Moreno V, MD Estimated [...] a current smoker. NPO Status: adequate Beta Cristian Monitoring Plan Monitoring plan: standard ASA. Post Procedure Analgesic Plan Postoperative analgesic plan: parenteral or oral opioids. Informed Consent Anesthetic risks, benefits, alternatives, personnel and consent discussed: yes. Patient / Responsible Green Party agrees to proceed: yes Patient / Surrogate [...] Medications as of 12/20/2023 Medication Sig - [employer] ULTRA TEST test strip USE TO TEST [...] December 20, 2023 TIME: 10:28 AM CSN: [id number] [facility] NURSING PROGon 12-20-2023 NURSING PROG HNO ID: [id number] Author: CYRUS VELASCO RN Service: ? Author Type: Registered [...] instructions REFERRAL (RECOMMENDATION): None Electronically Signed By: Cyrus Velasco RN In Department: AMBULATORY SURGERY Normal [facility] OPERATIVE NOon 12-20-2023 OPERATIVE NO HNO ID: [id number] Author: IDANIA MORENO MD Service: Ophthalmology Author Type: Physician Type: Operative Report Filed: 12/20/2023 11:34 Note Text: OPERATIVE REPORT DATE OF SERVICE: December 20, 2023 PRIMARY SURGEON: Idania Moreno M.D. CLARIFIER: None [Any nurse listed as assisting or [...] corneal incision was created temporally with a Gambell blade then a 2.4 mm keratome. The anterior chamber was reformed with Viscoat, after which the anterior capsule was opened centrally. Using the Utrata forceps a continuous curvilinear capsulorrhexis of approximately 5.5 mm round was created. Gentle hydrodissection was accomplished using preservative-free lidocaine on a 27-gauge cannula. Using the Jordan phacoemulsification unit with the SiteBrains curved tip, the anterior chamber was entered [...] Implant Name Type Inv. Item Serial No. Social Sciences Research Scientist Lot No. LRB No. Used Action Model No. CC60WF.250 [employer] - [id number] Intraocular Lens [id number] [employer] [id number] [employer] [facility] Left 1 Implanted [id number] [...] 11:32 AM - [facility] Idania MORENO MD [facility] HISTORY PHYSICALon HISTORY PHYSICAL HNO ID: [id number] Author: SAMREEN RICKS APRN.BRUSH CLEANER Service: ? Author Type: Nurse Practitioner Type: [...] mouth one time a week. Taking Yes [employer] ULTRA TEST test strip USE TO TEST [...] vaccine, age (more content not included)... Normal [facility] IOL BIOMETRY W/ IOL CALC OU (BOTH EYES)on 12-07-2023 [facility] Study observation (narrative) [facility] 07-11-2023 CNPN Telephone (OPHTLN) ANAMARIA CAREY ([id number]) 1955 F Date Time Provider Department 07/11/23 IDANIA MORENO V OPHTLRuben During your visit today, we recorded the following information about you: Gabrielle Serna 07/11/2023 2:07 PM Signed Called patient and left voicemail referral for CAT EVAL with BAT is in folder. Allergies As of Date: 07/11/2023 (Not on File) Date Reviewed: Never Reviewed Reason for Visit: Appointment [186] Problem List As Of Date: 07/11/2023 (None) Encounter Status:Closed by GABRIELLE SERNA on 07/12/23 Normal [facility] INSULINon 10-19-2022 Insulin 10.3 uIU/mL Normal 2.6-24.9 [facility] Comment on above: Performed By: #### I NSULIN #### [facility] [address] [place] [address] Dr. Amalia Godinez CBC AUTO DIFFon 10-18-2022 BASO # 0.0 103/ul Normal 0.0-0.1 [facility] Comment on above: Performed By: #### C BC #### [facility] [address] [place] [address] Dr. Amalia Godinez Basophils/100 WBC (Bld) 0.5 % Normal 0.2-2.0 [facility] Comment on above: Performed By: #### C BC #### [facility] [address] [place] [address] Dr. Amalia Godinez EO # 0.1 103/ul Normal 0.0-0.7 [facility] Comment on above: Performed By: #### C BC #### [facility] [address] [place] [address] Dr. Amalia Godinez Eosinophils/100 WBC (Bld) 1.7 % Normal 0.9-7.0 [facility] Comment on above: Performed By: #### C BC #### [facility] [address] [place] [address] Dr. Amalia Godinez Erythrocyte distribution width (RBC) [Ratio] 12.7 % Normal 11.0-15.0 [facility] Comment on above: Performed By: #### C BC #### [facility] [address] [place] [address] Dr. Amalia Godinez Hematocrit (Bld) [Volume fraction] 39.7 % Normal 36.0-48.0 [facility] Comment on above: Performed By: #### C BC #### [facility] [address] [place] [address] Dr. Amalia Godinez Hemoglobin (Bld) [Mass/Vol] 13.1 g/dL Normal 12.0-16.0 [facility] Comment on above: Performed By: #### C BC #### [facility] [address] [place] [address] Dr. Amalia Godinez IG # 0.04 10e3/ul Critically high 0.00-0.03 [facility] Comment on above: Performed By: #### C BC #### [facility] [address] [place] [address] Dr. Amalia Godinez IG % 0.5 % Normal 0.0-0.5 [facility] Comment on above: Performed By: #### C BC #### [facility] [address] [place] [address] Dr. Amalia Godinez LYMPH # 2.3 103/ul Normal 1.2-3.8 [facility] Comment on above: Performed By: #### C BC #### [facility] [address] [place] [address] Dr. Amalia Godinez Lymphocytes/100 WBC (Bld) 31.1 % Normal 20.5-60.0 [facility] Comment on above: Performed By: #### C BC #### [facility] [address] [place] [address] Dr. Amalia Godinez MANUAL DIFF REQ NO Normal [facility] Comment on above: Performed By: #### C BC #### [facility] [address] [place] [address] Dr. Amalia Godinez MCH (RBC) [Entitic mass] 29.2 pg Normal 26.7-34.0 [facility] Comment on above: Performed By: #### C BC #### [facility] [address] [place] [address] Dr. Amalia Godinez MCHC (RBC) [Mass/Vol] 33.0 g/dL Normal 29.9-35.2 [facility] Comment on above: Performed By: #### C BC #### [facility] [address] [place] [address] Dr. Amalia Godinez MCV (RBC) [Entitic vol] 88.6 fL Normal 81.0-99.0 [facility] Comment on above: Performed By: #### C BC #### [facility] [address] [place] [address] Dr. Amalia Godinez MONO # 0.5 103/ul Normal 0.3-0.8 [facility] Comment on above: Performed By: #### C BC #### [facility] [address] [place] [address] Dr. Amalia Godinez Monocytes/100 WBC (Bld) 6.0 % Normal 1.7-12.0 [facility] Comment on above: Performed By: #### C BC #### [facility] [address] [place] [address] Dr. Amalia Godinez NEUT # 4.5 103/ul Normal 1.4-6.5 [facility] Comment on above: Performed By: #### C BC #### [facility] [address] [place] [address] Dr. Amalia Godinez Neutrophils/100 WBC (Bld) 60.2 % Normal 43.0-75.0 [facility] Comment on above: Performed By: #### C BC #### [facility] [address] [address] [address] Amalia Godinez Platelet mean volume (Bld) [Entitic vol] 10.3 fL Normal 9.5-13.5 [facility] Comment on above: Performed By: #### C BC #### [facility] [address] [address] [address] Amalia Godinez PLT 242 103/ul Normal 150-450 [facility] Comment on above: Performed By: #### C BC #### [facility] [address] [address] [address] Amalia Godinez RBC 4.48 106/ul Normal 4.20-5.40 [facility] Comment on above: Performed By: #### C BC #### [facility] [address] [place] [address] Dr. Amalia Godinez WBC 7.5 103/ul Normal 4.0-11.0 [facility] Comment on above: Performed By: #### C BC #### [facility] [address] [place] [address] Dr. Amalia Godinez FREE THYROXINE INDEX T7on FTI 2.59 Normal 1.30-4.50 [facility] Comment on above: Performed By: #### [id number] #### [facility] [address] [place] [address] Dr. Amalia Godinez T3U 36.0 % Normal 30.0-39.0 [facility] Comment on above: Performed By: #### [id number] #### [facility] [address] [place] [address] Dr. Amalia Godinez T4 [Mass/Vol] 7.20 ug/dL Normal 4.80-13.90 [facility] Comment on above: Performed By: #### [id number] #### [facility] [address] [place] [address] Dr. Amalia Godinez GLYCOHEMOGLOBIN A1Con 2022 ADA RECOMMENDATION SEE BELOW Normal [facility] Comment on above: Result Comment: ADA RECOMMENDED LIMIT 4.0 - 6.0 ADA THERAPEUTIC TARGET < 7.0 ACTION SUGGESTED > 7.0 Performed By: #### A 1C #### [facility] [address] [place] [address] Dr. Amalia Godinez Glucose [Mass/Vol] 123 mg/dL Normal [facility] Comment on above: Performed By: #### A 1C #### [facility] [address] [place] [address] Dr. Amalia Godinez HbA1c (Bld) [Mass fraction] 5.9 % Normal 4.5-6.2 [facility] Comment on above: Performed By: #### A 1C #### [facility] [address] [place] [address] Dr. Amalia Godinez IRONon 10-18-2022 Iron [Mass/Vol] 93.0 ug/dL Normal 50.0-170.0 [facility] Comment on above: Performed By: #### [id number] #### [facility] [address] [place] [address] Dr. Amalia Godinez LIPID PROFILEon 10-18-2022 CHOL-HDL RATIO NORM SEE BELOW Normal [facility] Comment on above: Result Comment: 3.3 - 4.4 LOW RISK 4.4 - 7.1 AVERAGE RISK 7.1 - 11.0 MODERATE RISK >11.0 HIGH RISK Performed By: #### [id number] #### [facility] [address] [place] [address] Dr. Amalia Godinez Cholesterol [Mass/Vol] 267 mg/dL Critically high <=200 [facility] Comment on above: Performed By: #### 4 [id number] #### [facility] [address] [place] [address] Dr. Amalia Godinez Cholesterol in HDL [Mass/Vol] 62 mg/dL Critically high 40-60 [facility] Comment on above: Performed By: #### 4 [id number] #### [facility] [address] [place] [address] Dr. Amalia Godinez Cholesterol in LDL [Mass/Vol] 163.8 mg/dL Normal [facility] Comment on above: Performed By: #### 4 [id number] #### [facility] [address] [address] [address] Amalia Godinez Cholesterol.total/C holesterol in HDL [Mass ratio] 4.3 {ratio} Normal [facility] Comment on above: Performed By: #### 4 [id number] #### [facility] [address] [address] [address] Amalia Godinez HDL NORMAL > or = 60 mg/dl - LO W CARDIOVASCULAR RISK <40 mg/dl - HIGH CARDIOVASCULAR RISK Normal [facility] Comment on above: Performed By: #### 4 [id number] #### [facility] [address] [address] [address] Amalia Godinez LDL CALC NORMAL SEE BELOW Normal [facility] Comment on above: Result Comment: <100 mg/dl OPTIMAL 100 - 129 mg/dl NEAR OR ABOVE OPTIMAL 130 - 159 mg/dl BORDERLINE HIGH 160 - 189 mg/dl HIGH >190 mg/dl VERY HIGH Performed By: #### 4 [id number] #### [facility] [address] [place] [address] Dr. Amalia Godinez Triglyceride [Mass/Vol] 206 mg/dL Critically high <=150 [facility] Comment on above: Performed By: #### 4 [id number] #### [facility] [address] [place] [address] Dr. Amalia Godinez VLDL CALC 41.2 mg/dL Normal [facility] Comment on above: Performed By: #### 4 [id number] #### [facility] [address] [address] [address] Amalia Godinez PROF 14(COMP METB)on 023 Albumin [Mass/Vol] 4.1 g/dL Normal 3.4-5.0 [facility] Comment on above: Performed By: #### 4 [id number] #### [facility] [address] [place] [address] Dr. Amalia Godinez Albumin/Globulin [Mass ratio] 1.2 {ratio} Normal [facility] Comment on above: Performed By: #### 4 [id number] #### [facility] [address] [address] [address] Amalia Godinez ALP [Catalytic activity/Vol] 50 U/L Normal 46-116 [facility] Comment on above: Performed By: #### 4 [id number] #### [facility] [address] [place] [address] Dr. Amalia Godinez ALT [Catalytic activity/Vol] 29 U/L Normal 14-59 [facility] Comment on above: Performed By: #### 4 [id number] #### [facility] [address] [address] [address] Amalia Godinez Anion gap [Moles/Vol] 12.9 mmol/L Normal [facility] Comment on above: Performed By: #### 4 [id number] #### [facility] [address] [place] [address] Dr. Amalia Godinez AST [Catalytic activity/Vol] 23 U/L Normal 15-37 [facility] Comment on above: Performed By: #### 4 [id number] #### [facility] [address] [place] [address] Dr. Amalia Godinez Bilirubin [Mass/Vol] 0.5 mg/dL Normal 0.2-1.0 [facility] Comment on above: Performed By: #### 4 [id number] #### [facility] [address] [place] [address] Dr. Amalia Godinez Calcium [Mass/Vol] 9.5 mg/dL Normal 8.5-10.1 [facility] Comment on above: Performed By: #### 4 [id number] #### [facility] [address] [place] [address] Dr. Amalia Godinez Chloride [Moles/Vol] 103 mmol/L Normal 98-107 [facility] Comment on above: Performed By: #### 4 [id number] #### [facility] [address] [address] [address] Amalia Godinez CO2 [Moles/Vol] 27.3 mmol/L Normal 21.0-32.0 [facility] Comment on above: Performed By: #### 4 [id number] #### [facility] [address] [place] [address] Dr. Amalia Godinez Creatinine [Mass/Vol] 0.69 mg/dL Normal 0.55-1.02 [facility] Comment on above: Performed By: #### 4 [id number] #### [facility] [address] [place] [address] Dr. Amalia Godinez EGFR-AF [place] >60 Normal >=60 [facility] Comment on above: Performed By: #### 4 [id number] #### [facility] [address] [address] [address] Amalia Godinez EGFR-NON AF [place] >60 Normal >=60 [facility] Comment on above: Performed By: #### 4 [id number] #### [facility] [address] [place] [address] Dr. Amalia Godinez Globulin (S) [Mass/Vol] 3.3 g/dL Normal [facility] Comment on above: Performed By: #### 4 [id number] #### [facility] [address] [place] [address] Dr. Amalia Godinez Glucose [Mass/Vol] 132 mg/dL Critically high 74-106 [facility] Comment on above: Performed By: #### 4 [id number] #### [facility] [address] [place] [address] Dr. Amalia Godinez Potassium [Moles/Vol] 4.2 mmol/L Normal 3.5-5.1 [facility] Comment on above: Performed By: #### 4 [id number] #### [facility] [address] [place] [address] Dr. Amalia Godinez Protein [Mass/Vol] 7.4 g/dL Normal 6.4-8.2 [facility] Comment on above: Performed By: #### 4 [id number] #### [facility] [address] [place] [address] Dr. Amalia Godinez Sodium [Moles/Vol] 139 mmol/L Normal 136-145 [facility] Comment on above: Performed By: #### 4 [id number] #### [facility] [address] [place] [address] Dr. Amalia Godinez Urea nitrogen [Mass/Vol] 19.0 mg/dL Critically high 7.0-18.0 [facility] Comment on above: Performed By: #### 4 [id number] #### [facility] [address] [place] [address] Dr. Amalia Godinez Urea nitrogen/Creatinine [Mass ratio] 27.5 mg/mg Normal [facility] Comment on above: Performed By: #### 4 [id number] #### [facility] [address] [place] [address] Dr. Amalia Godinez TSHon 10-18-2022 TSH 1.507 uIU/mL Normal 0.358-3.740 [facility] Comment on above: Performed By: #### 4 [id number] #### [facility] [address] [place] [address] Dr. Amalia Godinez VITAMIN D 25 OHon 10-18-2022 VIT D 25-OH 79.9 ng/mL Normal [facility] Comment on above: Performed By: #### 4 [id number] #### [facility] [address] [place] [address] Dr. Amalia Godinez VIT D RANGES SEE BELOW Normal [facility] Comment on above: Result Comment: <20 ng/mL Vit D deficient 20 - <30 ng/mL Vit D insufficient 30 - 100 ng/mL Vit D sufficient >100 ng/mL Potential Toxicity Performed By: #### 4 [id number] #### [facility] [address] [place] [address] Dr. Amalia Godinez ECHOCARDIO M/2D COMPLETEon 1 09-20-2021 ECHOCARDIO M/2D COMPLETE Patient: ANAMARIA CAREY Exam Date: 07/20/2022 : 1955 Gender:F Ordering : DR ZHAO TRINIDAD . Admission #: [id number] Family : Order #: [id number] CLICK HERE TO VIEW EXAM ECHOCARDIOGRAM REPORT [...] Valdovinos M.D. on 07/21/2022 at 15:47 Normal [facility] NM STRESS/REST MULTIon 07-20 NM STRESS/REST MULTI Patient: ANAMARIA CAREY Exam Date: 07/20/2022 : 1955 Gender:F Ordering : DR ZHAO TRINIDAD . Admission #: [id number] Family : Order #: [id number] CLICK HERE TO VIEW EXAM RADIOLOGY REPORT [...] nuclear medicine myocardial perfusion scan. Dictated by: Arun Fontanez M.D. on 07/20/2022 at 15:27 Approved by: Arun Fontanez M.D. on 07/20/2022 at 15:30 Normal [facility] XR CHEST 2 Von 02-15-2022 XR [...] significant chronic interstitial changes. Electronically authenticated by: ARUN FONTANEZ Date: 2022-02-15 16:02 Normal [facility] PAP ACOG PANEL 2: 30 to 65on 01-27-2022 . . Normal [facility] Comment on above: Performed By: #### 4 [id number] #### [facility] [address] [address] [address] Amalia Godinez Age Gdln ACOG Testing Comment Normal [facility] Comment on above: Result Comment: <21 or >65 or no age provided Performed By: #### 4 [id number] #### [facility] [address] [address] [address] Amalia Godinez DIAGNOSIS: Comment Normal [facility] Comment on above: Result Comment: NEGA TIVE FOR INTRAEPITHELIAL LESION OR MALIGNANCY. CELLULAR CHANGES ASSOCIATED WITH ATROPHY ARE PRESENT. Performed By: #### 4 [id number] #### [facility] [address] [place] [address] Dr. Amalia Godinez Methodology: Comment Normal [facility] Comment on above: Result Comment: This liquid based ThinPrep(R) pap test was screened with the use of an image guided system. Performed By: #### 4 [id number] #### [facility] [address] [place] [address] Dr. Amalia Godinez Note: Comment Normal [facility] Comment on above: Result Comment: The Pap smear is a screening test designed to aid in the detection of premalignant and malignant conditions of the uterine cervix. It is not a diagnostic procedure and should not be used as the sole means of detecting cervical cancer. Both false-positive and false-negative reports do occur. . Performed By: #### 4 [id number] #### [facility] [address] [place] [address] Dr. Amalia Godinez Performed by: Comment Normal [facility] Comment on above: Result Comment: Katherine Del Rio, Research Hydrologist (ASCP) Performed By: #### 4 [id number] #### [facility] [address] [place] [address] Dr. Amalia Godinez Specimen adequacy: Comment Normal [facility] Comment on above: Result Comment: Sati sfactory for evaluation. Endocervical component may not be distinguished in cases of atrophy. Performed By: #### 4 [id number] #### [facility] [address] [place] [address] Dr. Amalia Godinez MG MAMM SCREEN 3D CARISSA CADon 01-17-2022 MG MAMM SCREEN 3D CARISSA CAD Patient: ANAMARIA CAREY Exam Date: 01/17/2022 : 1955 Gender:F Ordering : DR JAIRO AJ . Admission #: [id number] Family : Order #: [id number] CLICK HERE TO VIEW EXAM RADIOLOGY REPORT [...] colon cancer at age 54. LOCATION: [facility] BREAST COMPOSITION: Almost entirely fatty. FINDINGS: [...] PALPABLE LUMP SHOULD BE BIOPSIED. Dictated by: Arun Fontanez M.D. on 01/17/2022 at 13:55 Approved by: Arun Fontanez M.D. on 01/17/2022 at 14:04 Normal [facility] XR DEXA BONE DENSITYon 01-17 XR [...] - Moderate Fracture Risk Electronically authenticated by: ARUN FONTANEZ Date: 2022-01-17 16:45 Normal [facility] PAP ACOG PANEL 2: 30 to 65on 01-06-2022 . . Normal [facility] Comment on above: Performed By: #### 4 [id number] #### [facility] [address] [place] [address] Dr. Amalia Godinez Age Gdln ACOG Testing Comment Normal [facility] Comment on above: Result Comment: <21 or >65 or no age provided Performed By: #### 4 [id number] #### [facility] [address] [address] [address] Amalia Godinez DIAGNOSIS: Comment Normal [facility] Comment on above: Result Comment: UNSA TISFACTORY FOR EVALUATION. Performed By: #### 4 [id number] #### [facility] [address] [address] [address] Amalia Godinez Methodology: Comment Normal [facility] Comment on above: Result Comment: This liquid based ThinPrep(R) pap test was screened with the use of an image guided system. Performed By: #### 4 [id number] #### [facility] [address] [place] [address] Dr. Amalia Godinez Note: Comment Normal [facility] Comment on above: Result Comment: The Pap smear is a screening test designed to aid in the detection of premalignant and malignant conditions of the uterine cervix. It is not a diagnostic procedure and should not be used as the sole means of detecting cervical cancer. Both false-positive and false-negative reports do occur. . Performed By: #### 4 [id number] #### [facility] [address] [place] [address] Dr. Amalia Godinez Performed by: Comment Normal [facility] Comment on above: Result Comment: Elana Brink, Research Hydrologist Performed By: #### 4 [id number] #### [facility] [address] [place] [address] Dr. Amalia Godinez QC reviewed by: Comment Normal [facility] Comment on above: Result Comment: Maribell Ferreira, Supervisory Research Hydrologist (ASCP) Performed By: #### 4 [id number] #### [facility] [address] [place] [address] Dr. Amalia Godinez Recommendation: Comment Normal [facility] Comment on above: Result Comment: Sugg est follow up as clinically appropriate. Performed By: #### 4 [id number] #### [facility] [address] [place] [address] Dr. Amalia Godinez Specimen adequacy: Comment Normal [facility] Comment on above: Result Comment: Spec imen processed and examined, but unsatisfactory for evaluation of epithelial abnormality because of excessive lubricant. Performed By: #### 4 [id number] #### [facility] [address] [place] [address] Dr. Amalia Godinez Vital Signs Date Time Vital Sign Value Performing Clinician Della malagon 01-29-2025 13:14-0400 Body mass index (BMI) [Ratio] 24.98 kg/m2 Jairo Jean Marie DO Work Phone: [facility] 01-29-2025 13:140400 Body weight 70.19 kg Jairo Jean Marie DO Work Phone: [facility] 01-29-2025 13:14-0400 Diastolic blood pressure 50 mm[Hg] Jairo Jean Marie DO Work Phone: [facility] 01-29-2025 13:14-0400 Systolic blood pressure 122 mm[Hg] Jairo Jean Marie DO Work Phone: [facility] 12-07-2023 10:00-0400 Body height 170.2 cm Pacc 1 Work Phone: [facility] 12-07-2023 10:00-0400 Body mass index (BMI) [Ratio] 26.76 kg/m2 Pacc 1 Work Phone: [facility] 12-07-2023 10:00-0400 Body temperature 97.7 [degF] Pacc 1 Work Phone: [facility] 12-07-2023 10:00-0400 Body weight 77.5 kg Pacc 1 Work Phone: [facility] 12-07-2023 10:00-0400 Diastolic blood pressure 68 mm[Hg] Pacc 1 Work Phone: [facility] 12-07-2023 10:00-0400 Heart rate 75 /min Pacc 1 Work Phone: [facility] 12-07-2023 10:00-0400 Respiratory rate 16 /min Pacc 1 Work Phone: [facility] 12-07-2023 10:00-0400 SaO2% (BldA) [Mass fraction] 98 % Pacc 1 Work Phone: [facility] 12-07-2023 10:00-0400 Systolic blood pressure 132 mm[Hg] Pacc 1 Work Phone: [facility] Encounters Encounter Date Encounter Type Care Provider Facility Start: 01-29-2025 End: 01-29-2025 Bamboo flowsheet Jairo Jean Marie DO Work Phone: [facility] Start: 01-29-2025 End: 02-03-2025 Bamboo flowsheet Jairo Jean Marie DO Work Phone: [facility] Start: 01-29-2025 End: 02-03-2025 Clinisync Result Encounter Jairo Jean Marie DO Work Phone: [facility] Unsolicited Start: 01-29-2025 End: 01-29-2025 Patient encounter procedure Jairo Jean Marie DO Work Phone: [facility] Start: 01-29-2025 End: 01-29-2025 Periodic preventive med est patient 65yrs& older Jairo Jean Marie DO Work Phone: [facility] Comment on above: Well woman exam with routine gynecological exam; Encounter for screening mammogram for malignant neoplasm of breast; Postmenopausal state Start: 01-29-2025 End: 01-29-2025 ambulatory JAIRO JEAN MARIE Not Available Start: 11-27-2024 End: 11-27-2024 ambulatory Kory JARRETT Facility:[id number] Start: 11-13-2024 End: 11-13-2024 ambulatory Kory JARRETT Facility:[facility] Start: 09-11-2024 End: 09-11-2024 Clinisync Result Encounter Jairo Jean Marie DO Work Phone: [facility] Unsolicited Start: 09-11-2024 End: 09-11-2024 Clinisync Result Encounter Jairo Jean Marie DO Work Phone: [facility] Unsolicited Start: 05-20-2024 End: 05-20-2024 Bamboo flowsheet Hi Post MD Work Phone: [facility] Start: 05-20-2024 End: 05-20-2024 Bamboo flowsheet Hi Post MD Work Phone: [facility] Start: 05-20-2024 End: 05-20-2024 Office outpatient visit 15 minutes Hi Post MD Work Phone: [facility] Comment on above: Seborrheic keratosis (Primary Dx); History of SCC (squamous cell carcinoma) of skin; Lentigines; Actinic keratosis Start: 05-20-2024 End: 05-20-2024 ambulatory HI POST Not Available Start: 01-03-2024 End: 01-03-2024 [facility] Facility:[facility] Start: 12-20-2023 End: 12-20-2023 [facility] Facility:[facility] Start: 12-07-2023 End: 12-07-2023 Patient encounter procedure Eye Measurements Work Phone: Ophthalmology Comment on above: Combined forms of ag e-related cataract of both eyes Start: 12-07-2023 End: 12-07-2023 Admission to establishment [facility] [place] 1 Work Phone: Pre Anesthesia Start: 12-07-2023 End: 12-07-2023 ambulatory [facility] Facility:[facility] Start: 12-07-2023 End: 12-07-2023 Anesthesia consultation [facility] [place] 1 Work Phone: Pre Anesthesia Comment on above: Pre-op evaluation (P rimary Dx); Primary hypertension; Hyperlipidemia, unspecified hyperlipidemia type; Gastro-esophageal reflux disease without esophagitis Start: 12-07-2023 End: 12-07-2023 Preprocedural examination done [facility] [place] 1 Work Phone: [facility] Work Phone: Start: 11-29-2023 End: 11-29-2023 ambulatory ZHAO TRINIDAD Facility:[facility] Start: 09-28-2023 End: 09-28-2023 ambulatory IDANIA MORENO V Facility:[facility] Start: 09-28-2023 End: 09-28-2023 Patient encounter procedure Idania Moreno MD Work Phone: Ophthalmology Comment on above: Combined forms of ag e-related cataract of both eyes (Primary Dx); Macular drusen, left Start: 12-29-[address] ZHAO TRINIDAD . Facili ty:[facility] Start: 10-18-2022 End: 10-19-[address] ZHAO TRINIDAD . Facility: Start: 07-20-2022 End: 07-21-[address] ZHAO TRINIDAD . Facility: Start: 02-14-2022 End: 02-15-[address] ZHAO TRINIDAD . Facility: Start: 01-24-2022 End: 01-24-[address] JAIRO AJ . Facility: Start: 01-17-2022 End: 01-18-[address] JAIRO AJ . Facility: Start: 01-03-2022 End: 01-03-[address] JAIRO AJ . Facility: Procedures Date Procedure Procedure Detail Performing Clinician Start: 01-29-2025 IGP,APTIMA HPV,AGE GDLN Jairo Jean Marie DO Work Phone: Start: 09-11-2024 [facility] CALCIUM Jairo Fazi o DO Work Phone: Start: 09-11-2024 [facility] CREATININE Jairo Fa zio DO Work Phone: Start: 05-20-2024 CRYOTHERAPY SKIN LESION Hi Post MD Work Phone: Start: 02-06-2024 Mammography Hi oden MD Work Phone: Start: 12-07-2023 IOL BIOMETRY W/ IOL CALC OU (BOTH EYES) Idania Moreno MD Work Phone: Start: 07-05-2017 Colonoscopy Jairo Fazi o DO Work Phone: Plan of Treatment Date Care Activity Detail Author Start: 07-05-2027 Screening for malignant neoplasm of colon [facility] Start: 02-03-2026 End: 02-03-2026 Patient encounter procedure 02/03/2026 1:00 PM EDT Office Visit [facility] [address] [place] [address] Junie Conner PA [address] [place] [address] [facility] Start: 06-04-2025 End: 06-04-2025 Patient encounter procedure 06/04/2025 10:45 AM EST Office Visit [facility] [address] [place] [address] Hi Post MD [address] [place] [address] [facility] Start: 03-31-2025 Influenza vaccination Influenza Vaccine (#1) [facility] Start: 02-05-2025 Screening for malignant neoplasm of breast Mammogram [facility] Start: 01-29-2025 End: 04-01-2026 MG Breast - bilateral Screening Bilateral screening mammogram Imaging Routine Encounter for screening mammogram for malignant neoplasm of breast Expected: 01/29/2025, Expires: 04/01/2026 [facility] Work Phone: Comment on above: Expected: 01/29/2025, Expires: Start: 01-29-2025 End: 01-29-2025 Patient encounter procedure [facility] Comment on above: Arrived Start: 09-27-2024 End: 03-21-2025 IOL BIOMETRY W/ IOL CALC OU (BOTH EYES) IOL BIOMETRY W/ IOL CALC OU (BOTH EYES) [facility] Imaging Routine Combined forms of age-related cataract of both eyes Expected: 09/27/2024, Expires: 03/21/2025 [facility] Work Phone: Comment on above: Expected: 09/27/2024, Expires: Start: 05-20-2024 End: 05-20-2024 Patient encounter procedure 05/20/2024 11:15 AM EDT Office Visit [facility] [address] [place] [id number] Hi Post MD [address] [place] [address] Arrived [facility] Comment on above: Arrived Start: 03-31-2024 Influenza vaccination Influenza Vaccine (#1) [facility] Start: 01-12-2024 End: 01-12-2024 Patient encounter procedure 01/12/2024 1:45 PM EDT Office Visit [facility] [address] [place] [address] Blank Rosenberg, OD [address] [place] [address] 1 WEEK POSTOP CATARACT SURGERY LEFT THEN RIGHT NICKI DR CODY OUT OF THE OFFICE Ophthalmology Comment on above: 1 WEEK POSTOP CATARACT SURGERY LEFT THEN RIGHT NICKI DR CODY OUT OF THE OFFICE Start: 01-03-2024 End: 01-03-2024 Admission to same day surgery center 01/03/2024 8:50 AM EDT - 01/03/2024 9:20 AM EDT Surgery Ambulatory Surgery [address] [place] [address] Idania Moreno V, MD [address] [place] [address] PHACOEMULSIFICATION CATARACT IMPLANT INTRAOCULAR LENS W/O ENDOSCOPIC CYCLOPHOTOCOAGULATION Ambulatory Surgery Comment on above: PHACOEMULSIFICATION CATARACT IMPLANT INT RAOCULAR LENS W/O ENDOSCOPIC CYCLOPHOTOCOAGULATION Start: 01-03-2024 End: 01-03-2024 Oph bmtry prtl coher intrfrmtry io lens pwr karen OPHTHALMIC BIOMETRY BY PARTIAL COHERENCE INTERFEROMETRY W/INTRAOCULAR LENS POWER CALCULATION Combined forms of age-related cataract of both eyes 01/03/2024 8:50 AM EDT [facility] Start: 01-03-2024 Subsequent hospital visit by physician 01/03/2024 8:50 AM EDT Hospital Encounter Ambulatory Surgery [address] [place] [address] Idania Moreno V, MD [address] [place] [address] Combined forms of age-related cataract of both [...] 10:30 AM EDT Surgery Ambulatory Surgery [address] [place] [address] Idania Moreno V, MD [address] [place] [address] PHACOEMULSIFICATION CATARACT IMPLANT INTRAOCULAR LENS W/O ENDOSCOPIC [...] AM EDT Hospital Encounter Ambulatory Surgery [address] [place] [address] Idania Moreno V, MD [address] [place] [address] Combined forms of age-related cataract of both eyes [H25.813] Ambulatory Surgery Comment on above: Combined forms of age-related cataract o f both eyes [H25.813] Start: 12-20-2023 End: 12-20-2023 Xcapsl ctrc rmvl insj io lens prosth w/o ecp PHACOEMULSIFICATION CATARACT IMPLANT INTRAOCULAR LENS W/O ENDOSCOPIC CYCLOPHOTOCOAGULATION Combined forms of age-related cataract of both eyes 12/20/2023 10:00 AM EDT [facility] Start: 11-03-2023 Covid-19 Vaccine () Covid-19 Vaccine () [facility] Start: 07-31-2023 Advance Directive Discussion Advance Directive Discussion [facility] Start: 07-31-2023 Behavioral Health Screening Behavioral Health Screening [facility] Start: 07-31-2023 Depression Assessment Depression Assessment [facility] Start: 2018 Screening for osteoporosis Bone Density Screening [facility] Start: 2013 RSV Vaccine (1 - 1-dose 60+ series) RSV Vaccine (1 - 1-dose 60+ series) [facility] Start: 1998 Diabetes Screening Diabetes Screening [facility] Start: 1998 Lipid panel Lipid Screening [facility] Start: 1998 Screening for malignant neoplasm of colon [facility] Start: 1993 Screening for malignant neoplasm of breast Mammogram Screening [facility] Start: 1972 Urine microalbumin profile DTaP,Tdap,Td Vaccine (1 - Tdap) [facility] Start: 1971 Annual PCP Team Chronic Disease Visit Annual PCP Team Chronic Disease Visit [facility] Start: 1971 BP Controlled (<130/80) BP Controlled (<130/80) [facility] Start: 1971 Hepatitis C screening Hepatitis C Screening [facility] Start: 1953 Screening for malignant neoplasm of colon [facility] CORNEAL TOPOGRAPHY A TLAS OU (BOTH EYES) CORNEAL TOPOGRAPHY ATLAS OU (BOTH EYES) OPHT Imaging Routine Combined forms of age-related cataract of both eyes 12/07/2023 11:17 AM EDT [facility] Work Phone: End: 02-28-2025 CORNEAL TOPOGRAPHY PENTACAM OU (BOTH EYES) CORNEAL TOPOGRAPHY PENTACAM OU (BOTH EYES) OPHT Imaging Routine Combined forms of age-related cataract of both eyes 1 Occurrences starting 09/07/2023 until 02/28/2025 [facility] Work Phone: Comment on above: 1 Occurrences starting 09/07/2023 until 02/28/2025 End: 02-28-2025 OCT MACULA CIRRUS OU (BOTH EYES) OCT MACULA CIRRUS OU (BOTH EYES) OPHT Imaging Routine Combined forms of age-related cataract of both eyes 1 Occurrences starting 09/07/2023 until 02/28/2025 [facility] Work Phone: Comment on above: 1 Occurrences starting 09/07/2023 until 02/28/2025 OCT MACULA CIRRUS OU (BOTH EYES) OCT MACULA CIRRUS OU (BOTH EYES) OPHT Imaging Routine Combined forms of age-related cataract of both eyes 09/28/2023 10:45 AM EST [facility] Work Phone: THIN PREP TIS PAP AN D HR HPV DNA THIN PREP TIS PAP AND HR HPV DNA Pathology and Cytology Routine Well woman exam with routine gynecological exam Ordered: 01/29/2025 [facility] Comment on above: Ordered: 01/29/2025 [facility] [place] Immunizations Immunization Date Immunization Notes Care Provider [facility] 07-18-2024 influenza virus vacc ine, unspecified formulation Jairo Aj DO Work Phone: [facility] 06-21-2023 influenza virus vacc ine, unspecified formulation Hi Post MD Work Phone: [facility] Payers Date Payer Category Payer Private Health Insurance [employer] [id number] 2021 Unknown MMO MMO MEDICARE SUPPLEMENT [id number] 2021-Present [phone] [address] [place] [address] Indemnity [id number] 2018 Medicare [id number] 1959 Medicare [id number] 1959 Self-pay [id number] 1959 Unknown [id number] 1953 Unknown [id number]. 593 1953 Unknown [id number] .[id number]. 593 1953 Unknown [id number] .[id number]. 593 1953 Unknown [id number] .[id number]. 593 1953 Unknown [id number] .[id number]. 593 1953 Unknown [id number]. 593 1953 Unknown [id number] [id number]. 593 1953 Unknown [id number] [id number]. 727 1953 Unknown [id number]. 727 1953 Unknown [id number]. 1259 1953 Unknown [id number]. 1259 Social History Date Type Detail Facility Start: 05-18-2023 End: 09-28-2023 Tobacco smoking status NHIS Ex-smoker [facility] Work Phone: History of tobacco use Current smoker [facility] Work Phone: History of tobacco use Cigarette Smoker [facility] Work Phone: Start: 09-28-2023 End: 05-20-2024 Cigarettes smoked current (pack per day) - Reported 1 [facility] Start: 05-18-2023 End: 09-28-2023 Tobacco use and exposure Smokeless tobacco non-user [facility] Work Phone: Start: 09-28-2023 End: 05-20-2024 Area Deprivation Index [facility] Start: 01-10-2023 National Score (1-10 0), lower number is lower risk 63 [facility] Start: 1955 Sex Assigned At Not on file [facility] Start: 12-07-2023 End: 05-20-2024 Alcohol intake Current drinker of alcohol (finding) [facility] Start: 12-07-2023 Alcohol Comment wine daily [facility] Start: 1955 Sex assigned at Female [facility] Start: 01-10-2023 Gender identity Identifies as female gender (finding) [facility] Medical Equipment Procedure Code Equipment Code Equipment Origin al Text Equipment Identifier Dates [id number] Start: 08-10-2023 Comment on above: USE TO TEST BLOOD BEARD GAR DAILY DX: E11.9 Clinical Notes 09-28-2023 to 01-29-2025 STEPHANE Vaca - 01/29/2025 1:00 PM Neelam Post MD - 05/20/2024 11:15 AM Perla Dos Santos COA - 12/07/2023 11:13 AM EDTPatiSamreen Jimenez APRN.BRUSH CLEANER - 12/07/2023 10:01 AM EDT Note Date & Type Note Facility 01-29-2025 History of Present illness Narrative Reason for Appointment: Patient ID: Jessica Carey [...] 150 mg, Daily Lancets (OneTouch Delica Plus [id number]) misc USE TO TEST ONCE DAILY *E11.9* [...] nursing note reviewed. Exam conducted with a corrugator present. Vitals: Estimated body mass index is 24.98 kg/m as calculated from the following: Height as [...] Jairo Aj DO documented in this encounter [facility] 11-13-2024 Note General Surgery Offi ce/Clinic Note Chief Complaint consultation for colonoscopy HPI Staff 69 year old female presents on consultation from Dr. Trinidad for surveillance colonoscopy. Last colonoscopy completed 06/2017- normal. Father with history of colon cancer, age 56. Denies abdominal or rectal pain. No rectal bleeding or change in bowel habits. Denies nausea or vomiting. No unexplained weight loss. History of Present Illness 69 yo female with h/o htn, hypercholesterolemia, GERD, anxiety, uterine carcinoma, referred for surveillance colonoscopy, patient with fmhx of colon cancer in patient's father, dx at age 55, last colonoscopy 2016, wnl; no change in bms or blood in stools, no abd complaints; abd operations significant for AUDRA with bso; on Diclofenac daily, no asa; no tobacco use; no fmhx of IBD. Review of Systems PHQ Score Initial Depression Screen Score: 0 SCORE ROS - Provider Constitutional: no fever, no sweats, no weight loss. Eyes: yes glasses, no blurred vision, no visual loss. ENMT: no dentures, no hoarseness, no swallowing difficulties, no hearing loss, no ear infection(s), no nose bleeds. Cardiovascular: normal blood pressure, no chest pain, regular heartbeat, no heart murmur. Respiratory: no shortness of breath, no cough, no asthma, no wheezing. Gastrointestinal: no nausea, no vomiting, no diarrhea, no constipation, no blood in stool, no change in bowel habits, no abdominal pain, no hepatitis. Genitourinary: no kidney stones, no urine infection, no dysuria. Musculoskeletal: no pain, no weakness. Skin: no changing moles, no rash, no skin lumps. Neurologic: no seizures, no epilepsy, no headache. Psychiatric: no emotional or psychiatric problem. Heme/Lymph: no bleeding problems, no anemia, no blood clots, no transfusions. Allergy/Immunologic: no swollen lymph nodes/glands, no IV drug abuse. Other: Additional ROS info: Except as noted in the above Review of Systems and in the History of Present Illness, all other systems have been reviewed and are negative or noncontributory. Physical Exam Vitals & Measurements HR: 72(Peripheral) RR: 16 BP: 132/76 HT: 67 in HT: 170 cm WT: 162.921 lb WT: 73.9 kg BMI: 25.57 HEENT: normal conjunctiva, sclera clear, no scleral icterus, EOM intact, PERRLA, oral mucosa moist without lesions. Neck: trachea midline, no mass, symmetric, no thyromegaly or nodules, no adenopathy Respiratory: lungs CTA, respirations non labored. Cardiovascular: regular rate and rhythm, no murmur, no pedal edema or varicosities. Gastrointestinal: soft, non distended, no tenderness, no masses, no palpable hernias, diastasis recti no, no hepatosplenomegaly; normal bs Lymphatic: no cervical adenopathy, no supraclavicular adenopathy. Musculoskeletal: normal gait, digits and nails without infection, nodes, cyanosis, clubbing. Skin: no rashes, no lesions, no ulcers, no subcutaneous nodules, induration. Psychiatric/Neuro: oriented to time, place, person, judgement normal, affect appropriate for age, insight intact, no focal deficits. Tests, review of old records completed , Discussed surgical options, risks, and possible complications with patient. Assessment/Plan 1. Family history of colon cancer in father (Z80.0: Family history of malignant neoplasm of digestive organs) plan colonoscopy under anesthesia, informed consent obtained. Follow-up No qualifying data available Problem List/Past Medical History Ongoing Anxiety Bladder mass BMI 25.0-25.9,adult Essential hypertension Family history of colon cancer in father Gastroesophageal reflux disease without esophagitis History of basal cell carcinoma History of squamous cell carcinoma Hypercholesterolemia Hyperlipidemia Osteopenia Overweight Stricture of female urethra Uterine carcinoma Historical Recurrent UTI Procedure/Surgical History cysto/UD (07/02/2019), Colonoscopy (07/05/2017), cysto (05/29/2008), cysto (12/02/2005), Urodynamics (11/01/2005), Abdominal hysterectomy, Colonoscopy, Colonoscopy, Excision of basal cell carcinoma, Excision of squamous cell carcinoma, Fracture of humerus, IOL - intraocular lens implant. Medications desvenlafaxine 25 mg oral tablet, extended release, 25 mg= 1 tab(s), Oral, Daily diclofenac sodium 75 mg Oral EC Tab, 75 mg= 1 tab(s), Oral, BID irbesartan 150 mg Tab, 150 mg= 1 tab(s), Oral, Daily MiraLax, 17 gm, Oral, Daily Multi Vitamins oral tablet, 1 tab(s), Oral, Daily Prolia 60 mg/mL subcutaneous solution, 60 mg, SubCutaneous, q6mo Protonix 40 mg Tab-DR, 40 mg= 1 tab(s), Oral, Daily simvastatin 20 mg Tab, 20 mg= 1 tab(s), Oral, qPM Singulair, 10 mg, Oral, Daily Zetia 10 mg Tab, 10 mg= 1 tab(s), Oral, Daily Allergies Avelox (Hives) Benadryl (Altered behavior) Social History Alcohol - No Risk, 05/04/2020 Current. Beer. Daily., 11/12/2024 Substance Abuse - Denies Substance Abuse, 05/04/2020 Never., 11/12/2024 Tobacco - Denies Tobacco Use, 05/04/2020 Neve (more content not included)... [facility] Comment on above: Result Comment: Elec tronically Signed By: LUIZA GALICIA, Kory Cali\Date and Time Signed: 11/13/24 15:57 EDT 05-20-2024 History of Present illness Narrative Skin [...] Examined Right arm Examined Patient wearing nail yi, Denies dark streaks under finger nails, Denies [...] Proximal 2nd Finger, Right Proximal Thumb, Right Yarsanism Erythematous scaly papules Patient was counseled regarding [...] limited to risks of scarring, darker or best second jobs pigmentary changes, recurrence, incomplete removal and infection. [...] Proximal 2nd Finger, Right Proximal Thumb, Right Yarsanism Next Visit: 1 year documented in this encounter [facility] 01-03-2024 Note HNO ID: [id number] Author: MARIE GASCA RN Service: ? Author Type: Registered Nurse Type: Nursing Progress Note Filed: 01/03/2024 12:51 Note Text: Pt discharged to home in stable condition. Cont to deny any complaints. [facility] 12-07-2023 Note Date of Procedure 12/07/2023. Algologist Information JOSELITO Chino . Notes Measurements only - see Procedure Record under Scanned Documents for signed results. [facility] 12-07-2023 Note HNO ID: [id number] Author: PERLA NIELSEN COA Service: ? Author Type: Algologist Type: Progress Notes Filed: 12/07/2023 11:17 Note Text: CONFIRM AIM PLANO BOTH EYES. PATIENT AWARE THAT SHE WILL NEED GLASSES FOR NEAR AND INTERMEDIATE. JOSELITO Chino [facility] 12-07-2023 History of Present illness Narrative CONFIRM AIM PLANO BOTH EYES. PATIENT AWARE THAT SHE WILL NEED GLASSES FOR NEAR AND INTERMEDIATE. JOSELITO Chino documented in this encounter [facility] 12-07-2023 Instructions Samreen Ricks APRN.BRUSH CLEANER - 12/07/2023 10:05 AM EDT PATIENT PREOPERATIVE INSTRUCTIONS Idania Moreno V, MD has scheduled you for your procedure at this surgery center: [facility]: [phone] --[phone] [facility] [facility] [address]. Please read below carefully for your personalized [...] Procedures: - YOU MUST HAVE A RESPONSIBLE PHARMACY AFFAIRS ASSISTANT TAKE YOU HOME. A UNDERPRESSER HAND OR BIOLOGICAL LAB TECHNICIAN CANNOT BE MADE A RESPONSIBLE PHARMACY AFFAIRS ASSISTANT. - We recommend that a responsible person stays with you overnight to take care of you. - You cannot stay in a hotel alone after outpatient surgery. You will not be permitted to have your surgery, if you do not have someone to take care of you. If you already have an Advance Directive, please fax a copy to [phone] or email to for it to be [...] Samreen Ricks APRN.IVORY documented in this encounter [facility] 12-07-2023 History and physical note HISTORY [...] Covid Immunization Dates Overdue - Covid-19 Vaccine (6 - 2023-24 season) Overdue since 11/03/2023 07/04/2023 Imm Admin: [...] fevers. Neuro: No history of TIA's, stroke, TRANSITIONAL LIVING SPECIALIST tumor, impaired sensorium, hemiplegia, paraplegia or quadraplegia. No neurological symptoms or problems. Respiratory: No history of current cough or dyspnea, or pneumonia in the past 6 weeks. No history of respiratory/pulmonary symptoms or problems. Cardiovascular: Negative for Recent NM, Angina, Arrhythmia, CAD, Chest Pain, CHF, PVD, [...] Anamaria Carey DATE: 12/07/2023 TIME: 10:04 AM T [facility] 12-07-2023 History and physical note HISTORY AND PHYSICAL EXAMINATION SERVICE DATE: 12/07/2023 SERVICE TIME: 10:01 AM PRIMARY CARE PHYSICIAN: Zhao Trinidad MD REASON FOR VISIT: Anamaria aCrey is a 68 year old female who [...] mouth one time a week. Taking Yes [employer] ULTRA TEST test strip USE TO TEST [...] fevers. Neuro: No history of TIA's, stroke, TRANSITIONAL LIVING SPECIALIST tumor, impaired sensorium, hemiplegia, paraplegia or quadraplegia. No neurological symptoms or problems. Respiratory: No history of current cough or dyspnea, or pneumonia in the past 6 weeks. No history of respiratory/pulmonary symptoms or problems. Cardiovascular: Negative for Recent NM, Angina, Arrhythmia, CAD, Chest Pain, CHF, PVD, [...] TIME: 10:04 AM documented in this encounter [facility] 09-28-2023 Miscellaneous Notes Addended by: VILMA MENDOZA on: 09/28/2023 12:25 PM Modules accepted: Orders documented in this encounter [facility] 09-28-2023 Note HNO ID: [id number] Author: IDANIA MORENO MD Service: ? Author [...] first - Aim: plano Both eyes - Flomax/alpha-cristian? No - Toric candidate: Unknown - repeat elizabeth at biometry visit after Artificial tears four times a day x 1 week, comanage fee structure - PanOptix candidate: No - Anesthesia: Topical with MAC - Contact lens use No - History of LASIK/PRK/RK No - Discussed initiate twice daily eyelid scrubs pending U/S biometry and surgery - [facility] POD #1 Cataract Presurgical Documentation Cataract: Both [...] patient was offered a surgery/procedure at a [facility] facility. The surgeon/proceduralist and patient have [...] MORENO MD September 28, 2023 11:58 AM [facility] 09-28-2023 History of Present illness Narrative The documentation for this note was completed by JOSELITO Warren acting as a scribe for Idania MORENO MD. 09/28/2023 11:58 AM. ASSESSMENT / PLAN: 1. Combined cataract, both eyes - Offered cataract extraction by phacoemulsification and intraocular lens implant with Dr. Moreno, both eyes, left eye first - Aim: plano Both eyes - Flomax/alpha-cristian? No - Toric candidate: Unknown - repeat elizabeth at biometry visit after Artificial tears four times a day x 1 week, comanage fee structure - PanOptix candidate: No - Anesthesia: Topical with MAC - Contact lens use No - History of LASIK/PRK/RK No - Discussed initiate twice daily eyelid scrubs pending U/S biometry and surgery - Comanage with Dr Cody; [facility] POD #1 Cataract Presurgical Documentation Cataract: Both [...] patient was offered a surgery/procedure at a [facility] facility. The surgeon/proceduralist and patient have [...] 2023 11:28 AM documented in this encounter [facility] 09-28-2023 Note HNO ID: [id number] Author: BLANK ROSENBERG OD Service: ? Author Type: SYSTEMS ACCOUNTANT Type: Progress Notes Filed: 09/28/2023 12:10 Note Text: ASSESSMENT/PLAN: 1. Combined forms of age-related cataract of both eyes - ICD9: 366.19, ICD10: H25.813 (primary diagnosis) Dr Idania Moreno Cataract evaluation today 2. 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 Other and combined forms of senile cataract Combined forms of age-related cataract of both eyes Other and combined forms of senile cataract [facility] Pre-op evaluation- Primary Preoperative examination, [...] BP: 12/07/2023 132/68 [facility] Diagnosis Combined forms of age-related cataract of both eyes Other and combined forms of senile cataract Combined forms of age-related cataract of both eyes Other and combined forms of senile cataract Combined forms of age-related cataract of both eyes Other and combined forms of senile cataract [facility] Diagnosis Seborrheic keratosis- Primary History of SCC (squamous cell carcinoma) of skin Personal history of other malignant neoplasm of skin Lentigines Actinic keratosis documented in this encounter [facility] HealthcareEvaluation note* Diagnosis Well woman exam with routine gynecological exam Routine gynecological examination Encounter for screening mammogram for malignant neoplasm of breast Postmenopausal state Asymptomatic postmenopausal status (age-related) (natural) documented in this encounter [facility] Summary Purpose Family History No Family History Records FoundNo Family History Records FoundNo Family History Records FoundNo Family History Records Found Advance Directives No Advanced Directives Records FoundNo Advanced Directives Records FoundNo Advanced Directives Records FoundNo Advanced Directives Records Found Additional Source Comments INFORMATION SOURCE (unrecogn ized section and content) DATE CREATED AUTHOR 11/05/2022 [facility] DATE CREATED AUTHOR AUTHOR'S ORGANIZ ATION 01/04/2024 [facility] DATE CREATED AUTHOR AUTHOR'S ORGANIZ ATION 12/11/2024 [place] [facility] DATE CREATED AUTHOR AUTHOR'S ORGANIZ ATION 01/31/2025 [facility] EPIC Source Comments (unrecognize d section and content) In the event this informatio n is protected by the Federal Confidentiality of Alcohol and Drug Abuse Patient Records regulations: The Federal rules restrict any use of the information to criminally investigate or prosecute any alcohol or drug abuse patient.[facility] the event this information is protected by the Federal Confidentiality of Alcohol and Drug Abuse Patient Records regulations: The Federal rules restrict any use of the information to criminally investigate or prosecute any alcohol or drug abuse patient.[facility] the event this information is protected by the Federal Confidentiality of Alcohol and Drug Abuse Patient Records regulations: The Federal rules restrict any use of the information to criminally investigate or prosecute any alcohol or drug abuse patient.[facility] Reason for Visit (unrecogniz ed section and content) Reason Comments Cataract Evaluation Reason Comments Pre-Op Visit Reason Comments Pre-Op Exam Reason Comments Skin Check Reason Comments Well Women Visit Care Teams (unrecognized sec tion and content) Cnc Wood Lathe Operator Relationship Specialty Start Date End Date Zhao Trinidad MD PCP - General Family Medicine 07/14/15 [employer] Lathe Operator Relationship Specialty Start Date End Date Zhao Trinidad MD PCP - General Family Medicine 07/14/15 [employer]nc [employer] Lathe Operator Relationship Specialty Start Date End Date Zhao Trinidad MD [address] [place] [address] PCP - General 01/16/23 Cnc Wood Lathe Operator Relationship Specialty Start Date End Date Zhao Trinidad MD [address] [place] [address] PCP - General 01/16/23 Cnc Wood Lathe Operator Relationship Specialty Start Date End Date Zhao Trinidad MD [address] [place] [address] PCP - General 01/16/23 Cnc Wood Lathe Operator Relationship Specialty Start Date End Date Zhao Trinidad MD [address] [place] [address] PCP - General 01/16/23 Cnc Wood Lathe Operator Relationship Specialty Start Date End Date Zhao Trinidad MD [address] [place] [address] PCP - General 01/16/23 FOR RECORDS PERTAINING [...] BE BASED ON THE PRIMARY CLINICAL RECORDS. [facility]. provides no warranty or guarantee of the accuracy or completeness of information in this document.
== END 2025-04-25 13:00 | disposition home or self-care (01) ==
LOC: MAMMO 13:01
PROVIDERS: PCP Family Medicine; Visit Provider Obstetrics & Gynecology
DX: Z12.31 Encounter for screening mammogram for malignant neoplasm of breast (principal); Z80.0 Family history of malignant neoplasm of digestive organs
CPT/HCPCS: 77063; 77067

== ENCOUNTER 2025-05-21 09:31 | Outpatient (RCR) | payer MEDICARE, OTHER, SELFPAY ==
[2025-05-21 13:03] VITALS: BP 121/77; PULSE 93; TEMP 37.1; O2SAT 98
[2025-05-21 13:08] LABS: Calcium 9.7 mg/dL (8.5-10.1); Estimated GFR (African America >60 (>=60 mL/min/1.73m^2); Estimated GFR (Non-African Ame >60 (>=60 mL/min/1.73m^2)
[2025-05-21] MEDS: DENOSUMAB 60 MG/ML SYRINGE SUBQ (13:30)
== END 2025-06-02 12:03 | disposition home or self-care (01) ==
LOC: LAB 09:31
PROVIDERS: PCP Family Medicine; Visit Provider Obstetrics & Gynecology
DX: Z51.81 Encounter for therapeutic drug level monitoring (principal); Z78.0 Asymptomatic menopausal state; M85.80 Other specified disorders of bone density and structure, unspecified site; M81.0 Age-related osteoporosis without current pathological fracture
CPT/HCPCS: 36415; 82310; 82565; 96372; J0897